=== PATIENT | female | born 1930 | race Caucasian/White ===

== ENCOUNTER 2017-02-14 13:17 | Outpatient (CLI) | payer MEDICARE ==
[2017-02-14 13:41] LABS: #Basophils 0.1 thou/uL (0.0-0.2); #Eosinphils 0.1 thou/uL (0.0-0.7); #Lymphocytes 1.2 thou/uL (1.20-3.40); #Monocytes 0.4 thou/uL (0.11-0.59); #Neutrophils 2.5 thou/uL (1.40-6.50); %Basophils 1.3 % (0.0-1.0); %Lymphocytes 27.5 % (21.0-51.0); %Monocytes 8.8 % (0.0-10.0); %Neutrophils 59.3 % (42.0-75.0); Hemoglobin 9.6 g/dL (12.0-16.0); Mean Corpuscular HGB CONC 30.2 g/dL (32.0-36.0); Mean Corpuscular Hemoglobin 26.7 pg (27.0-31.0); Mean Corpuscular Volume 88.2 fl (81.0-99.0); Mean Platelet Volume 9.1 fL (7.4-10.4); Platelet Count 130 thou/uL (130-400); Red Blood Cell (RBC) Count 3.58 mill/uL (4.20-5.40); White Blood Cell (WBC) Count 4.2 thou/uL (4.8-10.8)
[2017-02-14 13:56] LABS: ALT (SGPT) 16 U/L (0-55); AST (SGOT) 20 U/L (5-34); Albumin 3.9 g/dL (3.4-4.8); Alkaline Phosphatase 114 U/L (40-150); Anion Gap 13 mmol/L (10-20); BUN (Urea Nitrogen) 27 mg/dL (9.8-20.1); Bilirubin, Total 0.3 mg/dL (0.2-1.2); Calc. Creatinine Clearance 0 mL/min (70-130); Calcium 9.3 mg/dL (7.8-10.44); Carbon Dioxide 27 mmol/L (23-31); Chloride 106 mmol/L (98-107); Cholesterol 101 mg/dL (< 200 Desired); Estimated GFR-MDRD 70; Globulin 2.3 g/dL (2.4-3.5); Glucose 106 mg/dL (83-110); HDL Cholesterol 50 mg/dL (>60 Neg Risk); LDL Cholesterol, Calculated 42 mg/dL; Potassium 4.2 mmol/L (3.5-5.1); Protein, Total 6.2 g/dL (5.8-8.1); Sodium 142 mmol/L (136-145); Triglycerides 44 mg/dL (Less than 150)
== END 2017-02-14 13:18 | disposition home or self-care (01) ==
LOC: MADLABBHPM 13:17
PROVIDERS: ATTEND Internal Medicine Cardiovascular Disease
DX: I10 Essential (primary) hypertension (principal); M19.90 Unspecified osteoarthritis, unspecified site; E78.2 Mixed hyperlipidemia
CPT/HCPCS: 36415; 80053; 80061; 84443; 85025

== ENCOUNTER 2017-02-18 21:06 | Emergency (ER) | payer MEDICARE, OTHER ==
[~2017-02-18 21:06] MED LIST: Sodium Chloride 0.9% 1,000 ML BAG ONE; Sodium Chloride 0.9% 100 ML BAG ONE
[2017-02-18 21:48] LABS: ALT (SGPT) 24 U/L (0-55); AST (SGOT) 26 U/L (5-34); Albumin 3.9 g/dL (3.4-4.8); Alkaline Phosphatase 104 U/L (40-150); Anion Gap 16 mmol/L (10-20); BUN (Urea Nitrogen) 29 mg/dL (9.8-20.1); Bilirubin, Total 0.4 mg/dL (0.2-1.2); Calc. Creatinine Clearance 0 mL/min (70-130); Calcium 9.1 mg/dL (7.8-10.44); Carbon Dioxide 23 mmol/L (23-31); Chloride 104 mmol/L (98-107); Estimated GFR-MDRD 76; Globulin 2.5 g/dL (2.4-3.5); Glucose 118 mg/dL (83-110); Potassium 4.4 mmol/L (3.5-5.1); Protein, Total 6.4 g/dL (5.8-8.1); Sodium 139 mmol/L (136-145)
[2017-02-18 21:50] LABS: #Lymphocytes 0.5 thou/uL (1.20-3.40); #Monocytes 0.4 thou/uL (0.11-0.59); #Neutrophils 7.3 thou/uL (1.40-6.50); %Basophils 0.4 % (0.0-1.0); %Eosinophils 0.3 % (0.0-10.0); %Lymphocytes 5.8 % (21.0-51.0); %Neutrophils 88.5 % (42.0-75.0); Hemoglobin 9.4 g/dL (12.0-16.0); Mean Corpuscular HGB CONC 31.2 g/dL (32.0-36.0); Mean Corpuscular Hemoglobin 27.2 pg (27.0-31.0); Mean Corpuscular Volume 87.2 fl (81.0-99.0); Mean Platelet Volume 8.6 fL (7.4-10.4); PLT Morphology Comment Appears Decreased; Platelet Count 115 thou/uL (130-400); RBC Distribution Width 16.3 % (11.5-14.5); Red Blood Cell (RBC) Count 3.46 mill/uL (4.20-5.40); White Blood Cell (WBC) Count 8.3 thou/uL (4.8-10.8)
[2017-02-18 21:57] LABS: Bilirubin Negative (Negative); Blood, Urine Negative (Negative); Clarity Clear (Clear); Glucose, Urine (Dipstick) Negative (Negative); Leukocyte Negative (Negative); Nitrite Positive (Negative); Protein, Urine (Dipstick) Negative (Neg-Trace); Specific Gravity, Urine 1.015 (1.005-1.030); Urobilinogen 0.2 mg/dL (0.2-1.0); pH, Urine 5.5 (5.0-9.0)
[2017-02-18 21:59] LABS: Bacteria/HPF 4+ HPF (None Seen); RBC/HPF None Seen HPF (0-3); Squamous Epithelial 0-3 HPF (0-3)
[2017-02-18 22:00] LABS: Manual Diff?? NO
[2017-02-18] MEDS ORDERED: Nitroglycerin 0.4 MG TAB 1 EACH ONE (22:00)
[2017-02-18 22:13] LABS: CKMB 2.6 ng/mL (0-6.6)
[2017-02-18 22:14] LABS: Troponin I 0.019 ng/mL (< 0.028)
--- NOTE | 2017-02-18 22:14 | RAD ---
AP VIEW PELVIS 02/18/17 HISTORY: Right hip hardware placement. AP view pelvis is obtained. Comparison made to previous radiograph pelvis from 10/20/11. Previously noted proximal right femoral fracture has healed. No acute pelvic fractures or lesions se en. Bilateral superficial femoral artery calcification seen. IMPRESSION: No acute pelvic fractures or bony lesions seen. POS: [facility]
--- NOTE | 2017-02-18 22:18 | RAD ---
AP VIEW CHEST 02/18/17 HISTORY: 86-year-old with history of trauma. Comparison made to previous exam from 03/09/10. AP view chest demonstrates sternotomy wires seen. Multiple healed left sided posterior rib fractures seen. No evidence of acute intrathoracic abnormality seen. There does appear to be a small left suleiman ed pleural effusion. No evidence of pneumothorax seen. IMPRESSION: 1. Small left sided pleural effusion. 2. No evidence of acute intrathoracic pathology seen otherwise. POS: [facility]
--- NOTE | 2017-02-18 23:39 | CT ---
HISTORY: 86-year-old with history of fall yesterday having upper back pain. Axial images are obtained with coronal and sagittal reconstructions. The patient appears to have areas of sclerosis and old traumatic changes in the inferior end plate o f the T8 vertebral body. Old superior end plate T12 and L1 fracture is also seen. No obvious evidenc e of fracture seen in the posterior aspect of the visualized portions of the ribs. There is an old a rima of incomplete healing and sclerosis in the right L1 pedicle. There is atherosclerotic calcification of the aorta. There is marked calcification of the mitral ziggy ulus. There is also abnormal enlargement of the esophagus with an air fluid level within it concerning for a possible esophageal lesion. Correlate with GI consultation electively. IMPRESSION: Findings demonstrating older T8, T12 and L1 vertebral fractures. Upper thoracic spine demonstrates n o evidence of acute fractures. POS: [facility]
[2017-02-19] MEDS ORDERED: cefTRIAXone\\ROCEPHIN 1 GM VIAL ONE (00:14)
[2017-02-19] MEDS ORDERED: Pantoprazole 40 MG VIAL ONE (00:14)
== END 2017-02-19 00:42 | disposition short-term general hospital (02) ==
LOC: MADERS 21:06
DX: M54.6 Pain in thoracic spine (principal); D64.9 Anemia, unspecified; I44.7 Left bundle-branch block, unspecified; J90 Pleural effusion, not elsewhere classified; S50.01XA Contusion of right elbow, initial encounter; S51.011A Laceration without foreign body of right elbow, initial encounter; R07.9 Chest pain, unspecified; I25.2 Old myocardial infarction; Z79.82 Long term (current) use of aspirin; Z79.899 Other long term (current) drug therapy; W19.XXXA Unspecified fall, initial encounter
CPT/HCPCS: 51702; 71010; 72128; 72170; 80053; 81003; 81015; 82274; 82553; 84484; 85025; 85379; 87077; 87086; 87186; 93005; 96361; 96374; 96375; C9113; J0696; J2270; J7050

== ENCOUNTER 2017-03-09 12:42 | Inpatient (IN) | payer MEDICARE ==
[~2017-03-09 12:42] MED LIST changes: -Sodium Chloride 0.9% 100 ML BAG ONE
[2017-03-09 13:26] LABS: #Basophils 0.1 thou/uL (0.0-0.2); #Eosinphils 0.1 thou/uL (0.0-0.7); #Lymphocytes 0.9 thou/uL (1.20-3.40); #Monocytes 0.6 thou/uL (0.11-0.59); #Neutrophils 8.5 thou/uL (1.40-6.50); %Basophils 0.8 % (0.0-1.0); %Eosinophils 1.4 % (0.0-10.0); %Lymphocytes 8.4 % (21.0-51.0); %Monocytes 5.6 % (0.0-10.0); %Neutrophils 83.8 % (42.0-75.0); Hemoglobin 9.3 g/dL (12.0-16.0); Mean Corpuscular HGB CONC 30.7 g/dL (32.0-36.0); Mean Corpuscular Hemoglobin 26.8 pg (27.0-31.0); Mean Corpuscular Volume 87.2 fl (81.0-99.0); Mean Platelet Volume 7.1 fL (7.4-10.4); Platelet Count 227 thou/uL (130-400); Red Blood Cell (RBC) Count 3.46 mill/uL (4.20-5.40); White Blood Cell (WBC) Count 10.2 thou/uL (4.8-10.8)
[2017-03-09] MEDS ORDERED: Fentanyl 100 MCG/2 ML VIAL ONE (13:39)
[2017-03-09 13:44] LABS: ALT (SGPT) 12 U/L (0-55); AST (SGOT) 17 U/L (5-34); Alkaline Phosphatase 254 U/L (40-150); Anion Gap 16 mmol/L (10-20); BUN (Urea Nitrogen) 30 mg/dL (9.8-20.1); Bilirubin, Total 0.3 mg/dL (0.2-1.2); Calc. Creatinine Clearance 0 mL/min (70-130); Calcium 9.8 mg/dL (7.8-10.44); Carbon Dioxide 25 mmol/L (23-31); Chloride 103 mmol/L (98-107); Estimated GFR-MDRD 71; Globulin 2.7 g/dL (2.4-3.5); Glucose 113 mg/dL (83-110); Lipase 11 U/L (8-78); Potassium 4.4 mmol/L (3.5-5.1); Protein, Total 6.7 g/dL (5.8-8.1); Sodium 140 mmol/L (136-145)
[2017-03-09 13:53] LABS: Bilirubin Negative (Negative); Blood, Urine Negative (Negative); Clarity Clear (Clear); Glucose, Urine (Dipstick) Negative (Negative); Leukocyte Negative (Negative); Nitrite Negative (Negative); Protein, Urine (Dipstick) Negative (Neg-Trace); Urobilinogen 0.2 mg/dL (0.2-1.0)
[2017-03-09 14:14] LABS: CKMB 1.1 ng/mL (0-6.6); Troponin I 0.014 ng/mL (< 0.028)
--- NOTE | 2017-03-09 14:42 | RAD ---
AP CHEST: Indication: Pain with motion. FINDINGS: There is persistent pleural and parenchymal opacity, similar to comparison dated 02-21-17. Chronic erica ng change is similar. Post CABG change is similar. Osseous structures are unchanged. IMPRESSION: Stable examination of the chest. POS: [facility]
--- NOTE | 2017-03-09 14:43 | CT ---
NONCONTRAST CT OF THE CERVICAL SPINE: Indication: Right neck pain. Comparison: 02-19-17 IMPRESSION: 1. No acute fracture or subluxation is evident. 2. Severe multilevel spondylosis of the cervical spine with anterior translation of C3 on C4, C4 on C5, and C5 on C6 that appear stable to the prior exam. There is a prominent dilated esophagus which intraluminal debris. POS: [facility]
--- NOTE | 2017-03-09 14:59 | CT ---
CT OF THE CHEST WITHOUT CONTRAST CT OF THE ABDOMEN AND PELVIS WITHOUT CONTRAST: Indication: Left sided abdominal pain, constipation. Comparison: CT of the thorax dated 02-19-17. FINDINGS: CHEST: There is persistent small left pleural effusion and left basilar atelectasis. There is prominent dilatation of the esophagus with intraluminal debris that is stable. There is pos t-surgical change of prior CABG. There is prominent mitral annular calcifications. ABDOMEN/PELVIS: The gallbladder is contracted with intraluminal stones. Unopacified pancreas and spleen are unremarkable. Unopacified pancreas and adrenal glands are unremarkable. There is prominence of the renal pelves bi laterally, left greater than right, which may be related to extra renal pelves. There is renal vascu lar calcification of the superior pole of the right kidney. There is prominent vascular calcificatio n involving the abdominal and pelvic vasculature. There is gas within the bladder. There is a prominent amount of retained stool within the colon. The appendix is not definitely visualized. Small bowel is not obstructed. There is granuloma overlying the gluteal region. There is diffuse osteopenia. There is a === medullary needle transfixing the healed intertrochanter ic fracture. There is levoscoliosis of the lumbar spine. There are compression abnormalities involving T8, T12, and L1. There is diffuse osteopenia. No acute fracture is evident. IMPRESSION: 1. Persistent small left pleural effusion with basilar atelectasis. 2. Persistent dilated esophagus containing intraluminal debris. 3. Prominent amount of retained stool. 4. Prominence of the renal collecting systems without hydroureter may reflect changes of UPJ obstruc tion or prominent extrarenal pelves. 5. Stable chronic compression abnormality at T8, T12, and L1. POS: [facility]
[2017-03-09] MEDS ORDERED: Bisacodyl 10 MG SUPP PR PRN (16:07)
[2017-03-09] MEDS ORDERED: Acetaminophen/Codeine 30-300mg Tablet PO PRN (16:09)
[2017-03-09] MEDS ORDERED: Polyethylene Glycol 3350 17 GM Packet PO SCH (16:15)
[2017-03-09] MEDS ORDERED: Bisacodyl 10 MG SUPP PR SCH (16:15)
[2017-03-09] MEDS ORDERED: Acetaminophen 325 MG TAB PO PRN ×2 (16:54→16:55)
[2017-03-09] MEDS: Sodium Chloride 0.9% 1,000 ML IV SCH (16:59)
[2017-03-09] MEDS: Polyethylene Glycol 3350 17 GM Packet PO SCH ×3 (17:39→18:34)
[2017-03-09 17:50] VITALS: BMI 16.7
[2017-03-10] MEDS: Sodium Chloride 0.9% 1,000 ML IV SCH (05:21)
[2017-03-10] MEDS ORDERED: Sodium Chloride 0.9% 1,000 ML BAG ONE (07:30)
[2017-03-10] MEDS ORDERED: Ondansetron ODT 4 MG TAB PO PRN (07:58)
[2017-03-10 08:17] VITALS: BP 159/69; TEMP 99.7
[2017-03-10] MEDS ORDERED: Polyethylene Glycol 3350 17 GM Packet PO SCH ×2 (08:30→21:00)
--- NOTE | 2017-03-10 10:47 | SS ---
DATE OF ADMISSION: 03/09/2017 CHIEF COMPLAINT: Weak and unable to have a bowel movement and pain. PRESENT ILLNESS: The patient is an 86-year-old white female who has a history of hypertension, lanny nary artery disease who had a fall on 02/05/2017. The fall resulted in a fracture of the spinous pr ocess of C4, 5 and 6 and also some intralaminar fractures of C5 and C6. There was no displacement a nd there was no neurologic impairment. The patient was seen by a neurosurgeon who recommended manag ement in a cervical collar for which she was placed in a [employer] collar and this was to remain for 6-1 2 weeks. She also was found on her C-spine of the thoracic spine to have old fracture of T8, T12 an d L1. Her further evaluation of chest x-ray had shown a small left pleural effusion. CT scan of th e head showed no acute process. The patient was hospitalized at [facility] from 02/16/20 until 03/02/2017. She was seen in my office on 03/04/2017. At that time she was in her cervical collar. Her pain was being managed with tramadol and Tylenol and she seemed to be getting around r easonably well with the use of a walker. They had in-home help to assist her during the day and himanshu e in the evening. She lives there with her who helped, condition prevents him from being mu assistance. The patient came to the emergency room on the afternoon of 03/09/2017 because she was uncomfortable. She was having pain along the left lower lateral chest. She denied any shortness of breath. She also was having some cramping in the lower abdomen and had not had a bowel movement for a week. In the emergency room, she underwent a CT scan of the chest, abdomen and pelvic area which showed persi stent small left pleural effusion with basilar atelectasis, persistent dilated esophagus containing intraluminal debris and a prominent amount of retained stools in the rectum and throughout the colon . She had a little prominence of the renal collecting system without a hydroureter, represented a p ossible UPJ junction and she had the old compression fracture of T8, 12 and L1. Also, the urine fátima wed that she was ketotic, specific gravity was 1.020. There were negative leukocyte esterase and n egative nitrites, her sodium was 140, potassium 4.4, BUN 30, creatinine 0.77, glucose 117, alkaline phosphatase 254. CK 1.1, troponin I 0.14. Lipase 11. Albumin 4. Her H\T\H was 9.3 and 30.1, WBC count 10,200 with 84% segs, 8% lymphocytes, and platelet count of 227,000. The patient was admitted for some mild dehydration, anorexia and fecal impaction and left lower lateral chest wall pain. No fractures were noted on her CT scan of the chest. The patient was admitted to the hospital on the late afternoon of 03/09/2017 and was started on Cira Lax and received 17 grams in 8 ounces of water every 30 minutes x4. She passed multiple hard stools , but still required a digital disimpaction of multiple hard stools. On the morning of 03/10/2017 t he nurses noted that she still had some large amount of stools present in the colon. After her visi t, she vomited up some coffee ground material. I re-interviewed the patient and she said she interm ittently has some trouble with some vomiting. She has not had much of an appetite for some time. Historically she said she has had a stricture that required dilation by Dr. Moise, car sales representative . She is not sure when this was last done, she thinks it has been at least a couple of years ago. The patient denies any abdominal pain. She said she is just sore over the left lateral chest wall. She had a prescription for Tylenol #3, but has not been taking any of this. Apparently, she has be en taking just Tylenol and also may have been taking some tramadol. PAST HISTORY: Hospitalized from 02/15/2017 until 03/02/2017 for a fall resulting in fracture of the spinous process of C4, 5 and 6, and interim laminar fracture of C5 and C6 for which she is wearing a [employer] cervical collar. The patient has coronary artery disease for which she underwent a 3-vessel coronary artery bypass in 1993. She has hypertension, hyperlipidemia, osteoporosis with history of compression fractures of T8, T12 and L1. The patient has hyperlipidemia, osteoarthritis, history o f a fracture of the right hip for which she underwent open reduction and internal fixation. She als o has gastroesophageal reflux disease. She has undergone a DEMI and BSO, an appendectomy and bilater al rotator cuff repairs. The patient has a history of constipation for which she was started on Torey aLax 17 grams in 8 ounces of water on the office as 03/04/2017. PRESENT MEDICINES: Lisinopril 5 mg daily, aspirin 81 mg daily, Nexium 40 mg daily, metoprolol succi irineo 25 mg daily, Caltrate D 600 mg daily, aspirin 81 mg daily, atorvastatin 20 mg daily, Niaspan 50 0 mg at bedtime, Fosamax 70 mg daily, Alendronate 70 mg once a week, MiraLax 17 grams in 8 ounces of water daily, Tylenol 325 mg 2 every 4 hours as needed for pain, tramadol 50 mg 1 q.6 h. as needed f or pain. ALLERGIES: No known allergies. REVIEW OF SYSTEMS: The patient said she has been weak, although she is able to get around with a wh eelchair with wheels. She needs assistance with her ADLs and she is wearing her cervical collar desi ly. She has not had any fever. PULMONARY: No complaints. CARDIOVASCULAR: No complaints, although she is having pain along the left lower lateral chest wall that seems to be a little worse with deep inspiration and with movement. GASTROINTESTINAL: The patient has not had a bowel movement in a week. The patient said she has no appetite. The patient thinks she may have lost some weight. She intermittently has some vomiting, has had a history of esophageal stricture for which she has undergone dilation, but it has been prob ably at least 2 years ago that this was last done. : No complaints. HABITS: Alcohol none. Tobacco none. SOCIAL HISTORY: The patient is and lives at home with her who has multiple medical problems and is not able to serve as a caregiver. She has care in the home and a daughter who jase ts. CODE STATUS: DNR. PHYSICAL EXAMINATION: GENERAL: Shows an 86-year-old white female who has an asthenic build, looks frail, but not in any a cute distress. VITAL SIGNS: Shows a temperature of 99.7, pulse 102, respirations are 20, O2 saturation 98%, blood pressure 159/69. Her weight is 80 pounds. HEAD: Normocephalic and atraumatic. EYES: Pupils are equal, round, and reactive. Sclerae nonicteric. EARS: TMs are blocked by cerumen. NOSE: Normal. MOUTH AND THROAT: Normal. NECK: The patient has a [employer] cervical collar in place. LUNGS: Clear. There are decreased breath sounds at the left posterior base. HEART: Regular rate. ABDOMEN: Soft. There are some hard stools that can be felt on the left abdomen. The abdomen, thou gh, was nontender. EXTREMITIES: Lower extremities: No edema. NEUROLOGIC: The patient is alert and oriented x3. The patient has no focal weakness, but generaliz ed weakness. IMPRESSION: 1. Obstructive esophagus with retention of debris. A. Complicated by some vomiting coffee ground material on the morning of 03/10/2017. B. History of esophageal stricture requiring dilation, the last time, probably at least 2 years ago. 2. Dehydration. 3. Anorexia. 4. Obstipation with fecal impaction. A. Partially removed as of 03/10/2017. 5. Fall on 02/15/2017 resulting in a hospitalization at [facility] from 02/15/2017 until 03/02/2017 for a fracture of the spinous processes of C4, 5 and 6 and interlaminar fracture C5 and 6 for which she is wearing a [employer] cervical collar. 6. Coronary artery disease. A. Status post coronary artery bypass in 1993. B. Presently stable and asymptomatic. 7. Osteoporosis. A. Complicated by fracture of the right hip requiring open reduction internal fixation. B. History of compression fracture of T8, T12 and L1. 8. Severe spondylosis of the cervical spine with mild anterior translation C3 on C4, C4 on 5, and C 5 on 6 that is stable. 9. Prominence of the renal collecting system without hydroureter, possibly reflective of a ureterop elvic junction. 10. Persistent small left pleural effusion and possible basilar atelectasis. 11. Left lower lateral chest pain, suspect from a possible injury to the left chest, resulting in t he effusion and atelectasis. 12. Hypertension. 13. Hyperlipidemia. 14. Severe generalized weakness. PLAN: The patient initially had been admitted here at [facility] after her revie w and the episode of vomiting. I have reviewed all her x-rays and CT scan that shows the marked dil ation of the esophagus with retention of a large amount of debris throughout the esophagus. Apparen tly the patient has apparently an obstructed esophagitis with chronic retention and material in the esophagus that poses a significant aspiration risk. We will hold the patient n.p.o. We will arrang e for her to be transferred back to [facility] for further evaluation of the obstructed e sophagus with retention and also for further evaluation of the left pleural effusion and to ensure c ontrol of the severe constipation with fecal impaction. The patient does have a DNR code status.
== END 2017-03-10 09:59 | disposition short-term general hospital (02) | DRG 392 ==
LOC: MADERS 12:42 → MADMS 15:17
PROVIDERS: ADMIT Family Medicine; ATTEND Family Medicine
DX: K22.2 Esophageal obstruction (principal); J90 Pleural effusion, not elsewhere classified; E86.0 Dehydration; Z95.1 Presence of aortocoronary bypass graft; J98.11 Atelectasis; K56.41 Fecal impaction; S12.300D Unspecified displaced fracture of fourth cervical vertebra, subsequent encounter for fracture with routine healing; S12.400D Unspecified displaced fracture of fifth cervical vertebra, subsequent encounter for fracture with routine healing; S12.500D Unspecified displaced fracture of sixth cervical vertebra, subsequent encounter for fracture with routine healing; W19.XXXD Unspecified fall, subsequent encounter; I25.10 Atherosclerotic heart disease of native coronary artery without angina pectoris; M81.0 Age-related osteoporosis without current pathological fracture; M47.892 Other spondylosis, cervical region; E78.5 Hyperlipidemia, unspecified; I10 Essential (primary) hypertension; Z66 Do not resuscitate; R07.89 Other chest pain
CPT/HCPCS: 36415; 71010; 71250; 72125; 74177; 80053; 81003; 82553; 83605; 83690; 84484; 85025; 87040; 87086; 93005; A4353; J3010; J7050; Q0162

== ENCOUNTER 2017-03-25 02:11 | Emergency (ER) | payer MEDICARE ==
[2017-03-25 03:01] LABS: #Basophils 0.1 thou/uL (0.0-0.2); #Eosinphils 0.1 thou/uL (0.0-0.7); #Lymphocytes 0.9 thou/uL (1.20-3.40); #Monocytes 0.6 thou/uL (0.11-0.59); #Neutrophils 6.1 thou/uL (1.40-6.50); %Basophils 0.9 % (0.0-1.0); %Eosinophils 0.8 % (0.0-10.0); %Lymphocytes 11.1 % (21.0-51.0); %Monocytes 7.8 % (0.0-10.0); %Neutrophils 79.5 % (42.0-75.0); Hemoglobin 11.2 g/dL (12.0-16.0); Mean Corpuscular HGB CONC 31.7 g/dL (32.0-36.0); Mean Corpuscular Hemoglobin 28.3 pg (27.0-31.0); Mean Corpuscular Volume 89.5 fl (81.0-99.0); Mean Platelet Volume 7.6 fL (7.4-10.4); Platelet Count 208 thou/uL (130-400); RBC Distribution Width 17.5 % (11.5-14.5); Red Blood Cell (RBC) Count 3.94 mill/uL (4.20-5.40); White Blood Cell (WBC) Count 7.6 thou/uL (4.8-10.8)
[2017-03-25 03:18] LABS: ALT (SGPT) 14 U/L (0-55); AST (SGOT) 17 U/L (5-34); Albumin 3.8 g/dL (3.4-4.8); Alkaline Phosphatase 182 U/L (40-150); Anion Gap 18 mmol/L (10-20); BUN (Urea Nitrogen) 18 mg/dL (9.8-20.1); Bilirubin, Total 0.4 mg/dL (0.2-1.2); Calc. Creatinine Clearance 0 mL/min (70-130); Calcium 9.8 mg/dL (7.8-10.44); Carbon Dioxide 26 mmol/L (23-31); Chloride 100 mmol/L (98-107); Estimated GFR-MDRD 76; Globulin 2.4 g/dL (2.4-3.5); Glucose 104 mg/dL (83-110); Lipase 12 U/L (8-78); Potassium 4.5 mmol/L (3.5-5.1); Protein, Total 6.2 g/dL (5.8-8.1); Sodium 139 mmol/L (136-145)
--- NOTE | 2017-03-25 09:32 | CT ---
PRELIMINARY REPORT/[facility]/EMERGENCY AFTER HOURS PROCEDURE: EXAM: CT Chest Without Intravenous Contrast CLINICAL HISTORY: 86 years old, female; Pain; Chest pain; Other: Cough; Patient HX: Er cough TECHNIQUE: Axial computed tomography images of the chest without intravenous contrast. Coronal and sagittal reformatted images were created and reviewed. COMPARISON: No relevant prior studies available. FINDINGS: Lungs: Unremarkable. No mass. No consolidation. Pleural space: Small left pleural effusion. Heart: Aortic valve calcification. No significant pericardial effusion. Mediastinum: Substantial diffuse dilatation of the esophagus with food material, consistent with ach alasia. Bones/joints: Multilevel chronic compression fractures. No dislocation. Soft tissues: Unremarkable. Vasculature: Unremarkable. No thoracic aortic aneurysm. Lymph nodes: Unremarkable. No enlarged lymph nodes. Gallbladder and bile ducts: Cholelithiasis. No cholecystitis or biliary ductal dilatation. Kidneys and ureters: Incompletely visualized left sided hydronephrosis. Nonobstructive nephrolithiasis right kidney. IMPRESSION: 1. Substantial diffuse dilatation of the esophagus with food material, consistent with achalasia. 2. Small left pleural effusion. 3. Incompletely visualized left sided hydronephrosis. Consider CT abdomen/pelvis to evaluate for ure teral obstruction. 4. Aortic valve calcification may indicate aortic valve stenosis. RECOMMEND correlation with echocar diography. Thank you for allowing us to participate in the care of your patient. Dictated and Authenticated by: Robin Vera MD 03/25/2017 4:59 AM Central Time ([place] \T\ [place]) FINAL REPORT CT CHEST WITHOUT CONTRAST: FINDINGS: Lungs show no evidence of infiltrate. There is a small left effusion. The esophagus is severely dilated and filled with ingested material suggesting ackalasia. Evidence of left hydronephrosis which is incompletely evaluated. Radiopaque material in the dependent portion of the gallbladder consistent with small gallstones. These findings were all described on the preliminary report and I am in agreement with the prelimina ry report. POS: [facility]
--- NOTE | 2017-03-25 09:35 | CT ---
PRELIMINARY REPORT/[facility]/EMERGENCY AFTER HOURS PROCEDURE: EXAM: CT Cervical Spine Without Intravenous Contrast CLINICAL HISTORY: 86 years old, female; Pain; Neck pain; Patient HX: Pt complaining of cough and falls R/O neck pain. C-collar on TECHNIQUE: Axial computed tomography images of the cervical spine without intravenous contrast. This CT exam wa s performed using one or more of the following dose reduction techniques: automated exposure control , adjustment of the mA and/or kV according to patient size, and/or use of iterative reconstruction t echnique. Coronal reformatted images were created and reviewed. COMPARISON: No relevant prior studies available. FINDINGS: Vertebrae: No fracture. Degenerative change. Mild chronic compression deformity of the T2 vertebral body. Discs/spinal canal/neural foramina: See above. Soft tissues: Unremarkable. Esophagus: Esophagus is markedly distended with food material, consistent with achalasia. Lung apices: Unremarkable as visualized. IMPRESSION: 1. Esophagus is markedly distended with food material, consistent with achalasia. 2. No fracture. Thank you for allowing us to participate in the care of your patient. Dictated and Authenticated by: Robin Vera MD 03/25/2017 4:15 AM Central Time ([place] \T\ [place]) FINAL REPORT: CT CERVICAL SPINE: FINDINGS: There are degenerative changes of the cervical spine noted. Degenerative changes are most pronounced at C5-6 and C6-7 and C7-T1 where there is loss of disc height and prominent hypertrophic spurring p resent. Mild anterior subluxation at C4-5 is noted. Posterior spondolytic changes are seen at these levels which encroach into the spinal canal. Foraminal stenosis is seen bilaterally at C6-7. Left fo raminal stenosis at C5-6. The visualized esophagus is dilated and filled with ingested material as noted on the preliminary re port. No evidence of cervical spine fracture. IMPRESSION: I am in agreement with the preliminary report. POS: [facility]
== END 2017-03-25 06:00 | disposition home or self-care (01) ==
LOC: MADERS 02:11
DX: K22.2 Esophageal obstruction (principal); I25.2 Old myocardial infarction; I10 Essential (primary) hypertension; E78.5 Hyperlipidemia, unspecified; Z79.82 Long term (current) use of aspirin; Z79.899 Other long term (current) drug therapy
CPT/HCPCS: 36415; 71250; 72125; 80053; 83690; 85025

== ENCOUNTER 2017-11-06 11:14 | Emergency (ER) | payer MEDICARE ==
--- NOTE | 2017-11-06 12:23 | RAD ---
FOUR VIEWS OF THE RIGHT KNEE: 11/06/2017 HISTORY: Injury. Fall. Pain. FINDINGS: There is incompletely imaged postoperative hardware associated with the distal right femoral shaft. There are postoperative clips noted within the medial distal right thigh and medial to the right knee . Atherosclerotic calcifications are noted posterior to the distal femur and upper tibia. There is a nonspecific small-moderate sized knee joint effusion. There is patellofemoral joint space narrowing with posterior patellar osteophyte formation. There is no displaced fracture or evidence of dislocation appreciated. IMPRESSION: Osteopenia, degenerative change, and knee joint effusion. No discrete fracture or dislocation seen. If there is clinical concern for a radio-occult fracture, given trauma and knee joint effusion, CT ex amination may be beneficial. POS: [facility]
--- NOTE | 2017-11-06 12:26 | RAD ---
RIGHT HIP TWO VIEWS: HISTORY: An 87-year-old female with right hip pain following injury and fall. COMPARISON: 10/20/2010 FINDINGS: A right hip nail stabilizes the right femur with a healed intertrochanteric fracture. Minimal postop erative myositis ossificans is incidentally noted. Arterial vascular calcifications. Bony demineral ization without evidence for acute fracture. IMPRESSION: Hip nail stabilizing a healed intertrochanteric fracture. No acute fracture or dislocation. POS: [facility]
--- NOTE | 2017-11-06 13:38 | CT ---
CT OF RIGHT KNEE WITHOUT CONTRAST: Date: 11/06/17 INDICATION: Right knee pain after fall. FINDINGS: There is suspicion for a nondepressed, nondisplaced lateral tibial plateau fracture best seen on imag e 15 of the sagittal series at image 28 of the coronal series. Small lipohemarthrosis is present with in the knee joint. There is diffuse osteopenia. There is partial visualization of the distal aspect o f intramedullary yolette within the distal femur with associated interlocking screw. There are prominent vascular calcifications within the adjacent soft tissues. There is prominent muscular atrophy seen in volving region of anterior tibialis musculature of the proximal foreleg. There are surgical clips wit hin the soft tissues of the posterior knee joint. IMPRESSION: 1. Nondisplaced, nondepressed lateral tibial plateau fracture. 2. Mild osteoarthrosis of the right knee. 3. Small lipohemarthrosis. POS: [facility]
[2017-11-06] MEDS ORDERED: traMADol HCl 50 MG TAB ONE (15:35)
== END 2017-11-06 15:37 | disposition short-term general hospital (02) ==
LOC: MADERS 11:14
DX: S82.144A Nondisplaced bicondylar fracture of right tibia, initial encounter for closed fracture (principal); E78.5 Hyperlipidemia, unspecified; I25.2 Old myocardial infarction; I10 Essential (primary) hypertension; Z79.82 Long term (current) use of aspirin; Z79.899 Other long term (current) drug therapy; W06.XXXA Fall from bed, initial encounter

== ENCOUNTER 2017-11-06 23:28 | Inpatient (IN) | payer MEDICARE ==
[2017-11-07] MEDS ORDERED: Acetaminophen 325 MG TAB PO PRN (00:38)
[2017-11-07 01:52] VITALS: BMI 19.3
[2017-11-07] MEDS: Atorvastatin Calcium 10 MG TAB PO SCH (08:09)
[2017-11-07] MEDS: Niacin SR 500 MG CAP PO SCH (08:09)
[2017-11-07] MEDS: Calcium Carbonate + Vit D 1 TAB PO SCH (08:09)
[2017-11-07] MEDS ORDERED: FLU VACC TS2017-18 (>65YR) 0.5 ML SYRINGE IM ONE (09:00)
--- NOTE | 2017-11-07 12:11 | HP ---
CHIEF COMPLAINT: Fall and unable to walk. PRESENT ILLNESS: The patient is an 87-year-old white female who has a history of hypertension, coron michelle artery disease, frailty and severe gastroesophageal reflux with a history of previous distal esop hageal stricture. The patient resides at her home with her , but is very weak and requires as sistance with her ADLs. On the day of admission, the patient was getting up off of the commode and f ell hitting her right knee. She had immediate pain in the knee and could not get up. The patient wa s brought to the emergency room where she was evaluated. X-ray of the right hip and knee were perfor med. No obvious fracture was seen. CT scan of the right lower extremity was performed due to the pe rsistence of the pain and CT scan showed evidence of a nondisplaced, not depressed lateral tibial kerline teau fracture. There was also evidence of lipohemarthrosis in that right knee joint. ER doctor srinivas erred with me and the patient was left, not only with the fracture, but could not bear weight and cou ld not now walk and level of care exceeded what the family could do at home, recommended that she be referred to [facility] where orthopedic surgeon could evaluate and make a decision on how be st this fracture should be managed and then the patient could be brought back here for further care i f this was not operative. The patient was transferred to [facility], Dr. Wilder mcgill saw her and reviewed the films and then consulted with Dr. Moises Betts, Orthopedic surgeon . Dr. Betts recommended that since the patient had a nondisplaced, nondepressed lateral tibial kerline teau fracture that she be managed with a knee immobilizer and nonweightbearing for 3 weeks and then h e would recheck her. Dr. Navas called me with this information and since patient's condition was be yond what could be cared for at home she was transferred back [facility] care of not only the fracture, but her severe generalized weakness and for further evalu ation of the falls. The patient arrived at the hospital late on the evening of 11/06/2017 with a knee immobilizer on. The patient was seen early on the morning of 11/07/2017, she was able to tell me that she had fallen getting up off of the commode. She said she is weak and often can walk very short distance with the use of a walker. The patient said her knee feels better in the knee immobilizer. She has not yet be en up. PAST HISTORY: The patient has coronary artery disease. She has undergone coronary artery bypass in 1993. She has had appendectomy, a fracture of the right hip for which she has undergone open reducti on internal fixation with an intramedullary yolette and nail into the trochanteric fracture. She has had bilateral rotator cuff repair. She has had a DEMI and BSO. Patient has a history of severe gastroes ophageal reflux disease complicated by distal esophageal stricture that has resulted in dilation of t he esophagus and total impaction. The patient required EGD and balloon dilation of the distal esopha geal stricture on 03/11/2017. She was rehospitalized on 03/26/2017 for repeat EGD for a dilated esop hagus that was totally impacted with food. After she had been completely evacuated of all of the imp action in the esophagus she was examined, no evidence of any stricture was seen. She has been manage d by just a liquid diet and pureed diet. Last EGD in 08/2017 showed an open esophagus. No evidence of achalasia, no evidence on biopsy of achalasia. The patient since then on soft foods and also bekah ged with pantoprazole. The patient has had another fall in 02/19/2017 that resulted in a fracture of the spinous processes of C4, C5 and C6 and an intralaminar fracture of C5-6 without any type of neur ologic impairment. She was managed in a cervical collar rigid for an 8 week period and followed up w ith the neurosurgeon and has since healed. The patient also has a history of constipation, hyperlipi demia, generalized osteoarthritis. Osteoporosis. Overactive bladder. PRESENT MEDICINES: Acetaminophen 325 mg 2 every 4 hours as needed for pain, alendronate 70 mg once a week, aspirin 81 mg daily, atorvastatin 20 mg daily, metoprolol succinate extended release 25 mg desi ly, Caltrate D 600 mg 1 daily, Nexium 40 mg daily, Niacin 500 mg daily. ALLERGIES: No known allergies. REVIEW OF SYSTEMS: The patient does not think she has had any recent weight loss or gain. She has h ad no fever. HEAD AND NECK: The patient said she did not hit her head when she fell. There was no loss of consci ousness. EYES, EARS, NOSE AND THROAT: No complaints. PULMONARY: No shortness of breath. CARDIOVASCULAR: No complaints. GASTROINTESTINAL: The patient said she has been tolerating just a soft diet without any problems. : No complaints. ADLs: The patient requires assistance with her ADLs, can ambulate with the use of a walker very shor t distance. HABITS: Alcohol none. Tobacco none. SOCIAL HISTORY: The patient is and lives at home with her . Her daughter, meredith Rae ists her with her instrumental ADLs. CODE STATUS: Full code. PHYSICAL EXAMINATION: GENERAL: Shows an 87-year-old white female who is lying in bed. She is pale, very weak, but awake a nd appears comfortable. She is wearing a knee immobilizer on her right leg. VITAL SIGNS: Shows temperature 98.5, pulse 88, respirations 20, O2 sat 96% on room air, blood pressu re 146/69. Her weight is 98 pounds, height 60 inches. HEAD: Normocephalic and atraumatic. EYES: Pupils were equal, round, and reactive. Sclerae are nonicteric. NOSE: Normal. MOUTH AND THROAT: Normal. NECK: Carotids are equal and strong, no bruits. Thyroid not enlarged. LUNGS: Clear. HEART: Regular rate. No murmurs. ABDOMEN: Soft, no organomegaly, nor areas of tenderness. EXTREMITIES: There is no edema. The knee immobilizer on the right knee was loosened and opened to r emove the knee, the right knee was examined. There is a small effusion present. There is some bruis ing along the anterior lateral aspect of the knee and the lateral anterior aspect and lateral aspect of the knee is tender. The knee immobilizer was replaced. NEUROLOGIC: The patient is alert and recognizes me and knows herself. She was a little confused ove r the situation, but does know that she had fallen. IMPRESSION: 1. Closed, nondisplaced, nondepressed lateral tibial plateau fracture of the right leg. A. Secondary to a fall on 11/06/2017. B. Leaving the patient nonambulatory. C. Unable to take care of herself and beyond the capability of the family to manage her. 2. Severe generalized weakness. A. Requires assistance with all her ADLs. B. Now patient is nonweightbearing on the right leg due to fracture of the tibial plateau. 3. Coronary artery disease. A. Status post coronary artery bypass in 1993. B. Asymptomatic. 4. Hypertension. 5. Hyperlipidemia. 6. Severe gastroesophageal reflux. Complicated by distal esophageal stricture. A. Status post food bolus impaction requiring EGD, removal of impaction and dilation on 03/10/2017. B. Status post esophagogastroduodenoscopy for a total impacted dilated esophagus and history of esoph ageal stricture, but none seen on this evaluation. C. Last EGD showed no impaction and esophagus open. D. Tolerating a soft diet. 7. Frailty. 8. Osteoporosis. 9. Overactive bladder. PLAN: The patient has been admitted to the hospital for control of her pain and mobilization of the knee. The patient will need to remain nonweightbearing for 3 weeks and with a knee immobilizer. Arr angements will be made after 3 weeks for her to see orthopedic surgeon, Dr. Moises Betts. Physic al therapy will work with her for general strengthening and gait. See orders.
[2017-11-07] MEDS: Acetaminophen 325 MG TAB PO PRN ×2 (16:26→20:39)
[2017-11-07] MEDS: TROSPIUM 20 MG TABLET PO SCH (20:39)
[2017-11-07] MEDS ORDERED: Atorvastatin Calcium 10 MG TAB PO SCH (21:00)
[2017-11-08 05:51] LABS: Anion Gap 12 mmol/L (10-20); BUN (Urea Nitrogen) 36 mg/dL (9.8-20.1); Calc. Creatinine Clearance 36 mL/min (70-130); Calcium 9.2 mg/dL (7.8-10.44); Carbon Dioxide 28 mmol/L (23-31); Cardiac Risk 2.3 (Less than 4.5); Chloride 103 mmol/L (98-107); Cholesterol 82 mg/dl (< 200 Desired); Estimated GFR-MDRD 68; Glucose 117 mg/dL (83-110); HDL Cholesterol 35 mg/dL (>60 Neg Risk); LDL Cholesterol, Calculated 37 mg/dL; Potassium 4.1 mmol/L (3.5-5.1); Sodium 139 mmol/L (136-145); Triglycerides 50 mg/dL (Less than 150)
[2017-11-08 06:05] LABS: Band 6 % (5-11); Eosinophils 3 % (0-10); Hemoglobin 10.6 g/dL (12.0-16.0); Lymphocytes 14 % (21-51); MDiff Complete? YES; Mean Corpuscular Hemoglobin 30.3 pg (27.0-31.0); Mean Corpuscular Volume 91.9 fl (81.0-99.0); Mean Platelet Volume 8.3 fL (7.4-10.4); Monocytes 8 % (0-10); Neutrophil 69 % (42-75); PLT Morphology Comment Appears Decreased; Platelet Count 113 thou/uL (130-400); RBC Distribution Width 13.9 % (11.5-14.5); Red Blood Cell (RBC) Count 3.51 mill/uL (4.20-5.40); White Blood Cell (WBC) Count 8.1 thou/uL (4.8-10.8)
[2017-11-08] MEDS: Calcium Carbonate + Vit D 1 TAB PO SCH (08:12)
[2017-11-08] MEDS: Atorvastatin Calcium 10 MG TAB PO SCH (08:13)
[2017-11-08] MEDS: Niacin SR 500 MG CAP PO SCH (08:14)
[2017-11-08] MEDS ORDERED: Aspirin 81 mg Enteric Coated Tablet PO SCH (09:00)
[2017-11-08] MEDS ORDERED: Cyanocobalamin (Vitamin B-12) 1,000 MCG TAB PO SCH (09:00)
[2017-11-08] MEDS ORDERED: Enoxaparin Sodium 30 MG/0.3 ML SYRINGE SC SCH (09:00)
[2017-11-08] MEDS ORDERED: Calcium Carbonate + Vit D 1 TAB PO SCH (09:00)
[2017-11-08] MEDS: TROSPIUM 20 MG TABLET PO SCH (09:54)
[2017-11-08 10:27] VITALS: BP 127/61; TEMP 97.1
--- NOTE | 2017-11-08 11:14 | PRG ---
DATE OF SERVICE: 11/08/2017 SUBJECTIVE: The patient feels better this morning. OBJECTIVE: GENERAL: The patient is sitting up in bed. She is alert, talkative, and appears comfortable. She h as the knee immobilizer on the right leg. There is no edema in the right lower leg. LUNGS: Clear. HEART: Regular rate. VITAL SIGNS: Show a temperature 97.7, pulse 77, respirations 60, O2 sat 94% on room air, blood pressu re 134/63. ASSESSMENT: 1. Closed, nondisplaced, nondepressed lateral tibial plateau fracture of the right leg. A. Secondary to a fall on 11/06/2017. B. Leaving the patient nonambulatory. C. Unable to take care of herself and beyond the capability of the family to manage her. D. Very comfortable as of 11/08/2017. 2. Severe generalized weakness. A. Requires assistance with all her ADLs. B. Now patient is nonweightbearing on the right leg due to fracture of the tibial plateau. 3. Coronary artery disease. A. Status post coronary artery bypass in 1993. B. Asymptomatic. 4. Hypertension. 5. Hyperlipidemia. 6. Severe gastroesophageal reflux. Complicated by distal esophageal stricture. A. Status post food bolus impaction requiring EGD, removal of impaction and dilation on 03/10/20 17. B. Status post esophagogastroduodenoscopy for a total impacted dilated esophagus and history of esophageal stricture, but none seen on this evaluation. C. Last EGD showed no impaction and esophagus open. D. Tolerating a soft diet. 7. Frailty. 8. Osteoporosis. 9. Overactive bladder. PLAN: Continue present care. Continue the knee immobilizer placed patient on DVT prophylaxis with L ovenox 30 mg subcu daily. We will move patient to extended care for continuation of her management a nd physical therapy. Her insurance provider [employer] has improved this transfer as of today.
== END 2017-11-08 11:08 | disposition swing bed (61) | DRG 563 ==
LOC: MADMS 23:28
PROVIDERS: ADMIT Family Medicine; ATTEND Family Medicine
DX: S82.144A Nondisplaced bicondylar fracture of right tibia, initial encounter for closed fracture (principal); R54 Age-related physical debility; I10 Essential (primary) hypertension; I25.10 Atherosclerotic heart disease of native coronary artery without angina pectoris; K21.9 Gastro-esophageal reflux disease without esophagitis; M81.0 Age-related osteoporosis without current pathological fracture; E78.5 Hyperlipidemia, unspecified; N32.81 Overactive bladder; W19.XXXA Unspecified fall, initial encounter
CPT/HCPCS: 36415; 80048; 80061; 85025; J1650

== ENCOUNTER 2017-11-08 03:27 | Inpatient (IN) | payer MEDICARE ==
[2017-11-08] MEDS: Acetaminophen 325 MG TAB PO PRN (19:37)
[2017-11-08] MEDS: Atorvastatin Calcium 10 MG TAB PO SCH (19:37)
[2017-11-08] MEDS: Lantiseptic Ointment 130 GM JAR TOP SCH (21:47)
[2017-11-09] MEDS: Ondansetron ODT 4 MG TAB PO PRN (08:47)
[2017-11-09] MEDS: TROSPIUM 20 MG TABLET PO SCH ×2 (09:36→21:03)
[2017-11-09] MEDS: Enoxaparin Sodium 30 MG/0.3 ML SYRINGE SC SCH (09:36)
[2017-11-09] MEDS: Aspirin 81 mg Enteric Coated Tablet PO SCH (09:36)
[2017-11-09] MEDS: Niacin SR 500 MG CAP PO SCH (09:36)
[2017-11-09] MEDS: Calcium Carbonate + Vit D 1 TAB PO SCH (09:59)
[2017-11-09] MEDS: Cyanocobalamin (Vitamin B-12) 1,000 MCG TAB PO SCH (09:59)
[2017-11-09] MEDS: Lantiseptic Ointment 130 GM JAR TOP SCH ×2 (10:00→21:03)
[2017-11-09] MEDS: Atorvastatin Calcium 10 MG TAB PO SCH (21:03)
[2017-11-09] MEDS: Acetaminophen 325 MG TAB PO PRN (21:04)
[2017-11-10] MEDS: Acetaminophen 325 MG TAB PO PRN ×2 (00:56→05:31)
[2017-11-10] MEDS: Alendronate Sodium 70 mg Tablet PO SCH (05:32)
[2017-11-10] MEDS: Niacin SR 500 MG CAP PO SCH (09:01)
[2017-11-10] MEDS: Cyanocobalamin (Vitamin B-12) 1,000 MCG TAB PO SCH (09:02)
[2017-11-10] MEDS: Aspirin 81 mg Enteric Coated Tablet PO SCH (09:02)
[2017-11-10] MEDS: TROSPIUM 20 MG TABLET PO SCH ×2 (09:02→20:41)
[2017-11-10] MEDS: Calcium Carbonate + Vit D 1 TAB PO SCH (09:02)
[2017-11-10] MEDS: Enoxaparin Sodium 30 MG/0.3 ML SYRINGE SC SCH (09:03)
[2017-11-10] MEDS: Lantiseptic Ointment 130 GM JAR TOP SCH ×2 (11:00→20:42)
--- NOTE | 2017-11-10 11:52 | PRG ---
DATE OF SERVICE: 11/10/2017 SUBJECTIVE: The patient said she is feeling good this morning other than having some pain in that ri ght knee. Patient wants to get up. The patient yesterday had some nausea, vomiting, diarrhea. She was placed on a clear liquid diet and was given Zofran, oral disintegrating tablets as needed. She h as not had any other vomiting. Diarrhea has ceased. OBJECTIVE: GENERAL: The patient is lying in bed, looks comfortable and in no distress. VITAL SIGNS: Her temperature 98, pulse 92, respirations 16, O2 sat 92% on room air, and blood pressu re 136/60. LUNGS: Clear. HEART: Regular rate. MUSCULOSKELETAL: Her right knee is in a knee immobilizer. In the lower leg, there is no swelling. ASSESSMENT: 1. Closed, nondisplaced, nondepressed lateral tibial plateau fracture of the right leg. A. Secondary to a fall on 11/06/2017. B. Leaving the patient nonambulatory. C. Unable to take care of herself and beyond the capability of the family to manage her. D. Please put stable as of 11/10/2017. 2. Severe generalized weakness. A. Requires assistance with all her ADLs. B. Now patient is nonweightbearing on the right leg due to fracture of the tibial plateau. C. Physical therapy working with patient. She is nonweightbearing on the right leg as of 2016. 3. Coronary artery disease. A. Status post coronary artery bypass in 1993. B. Asymptomatic. 4. Hypertension. 5. Hyperlipidemia. 6. Severe gastroesophageal reflux. Complicated by distal esophageal stricture. A. Status post food bolus impaction requiring EGD, removal of impaction and dilation on 03/10/20 17. B. Status post esophagogastroduodenoscopy for a total impacted dilated esophagus and history of esophageal stricture, but none seen on this evaluation. C. Last EGD showed no impaction and esophagus open. D. Tolerating a soft diet. 7. Frailty. 8. Osteoporosis. 9. Episode of nausea, vomiting, and diarrhea on 11/10/2017. A. Resolved as of 11/10/2017. PLAN: Continue physical therapy. Advance patient's diet back to a mechanical soft diet. Up in a ch air as tolerated.
[2017-11-10] MEDS: Atorvastatin Calcium 10 MG TAB PO SCH (20:41)
[2017-11-11] MEDS: Ondansetron ODT 4 MG TAB PO PRN (08:50)
[2017-11-11] MEDS: TROSPIUM 20 MG TABLET PO SCH ×2 (08:52→21:27)
[2017-11-11] MEDS: Cyanocobalamin (Vitamin B-12) 1,000 MCG TAB PO SCH (08:52)
[2017-11-11] MEDS: Niacin SR 500 MG CAP PO SCH (08:52)
[2017-11-11] MEDS: Enoxaparin Sodium 30 MG/0.3 ML SYRINGE SC SCH (08:52)
[2017-11-11] MEDS: Calcium Carbonate + Vit D 1 TAB PO SCH (08:53)
[2017-11-11] MEDS: Aspirin 81 mg Enteric Coated Tablet PO SCH (08:53)
[2017-11-11] MEDS: Lantiseptic Ointment 130 GM JAR TOP SCH ×2 (10:39→21:28)
[2017-11-11] MEDS: Atorvastatin Calcium 10 MG TAB PO SCH (21:27)
[2017-11-12] MEDS: Calcium Carbonate + Vit D 1 TAB PO SCH (09:11)
[2017-11-12] MEDS: Aspirin 81 mg Enteric Coated Tablet PO SCH (09:11)
[2017-11-12] MEDS: Cyanocobalamin (Vitamin B-12) 1,000 MCG TAB PO SCH (09:12)
[2017-11-12] MEDS: Niacin SR 500 MG CAP PO SCH (09:12)
[2017-11-12] MEDS: Enoxaparin Sodium 30 MG/0.3 ML SYRINGE SC SCH (09:12)
[2017-11-12] MEDS: Lantiseptic Ointment 130 GM JAR TOP SCH ×2 (09:12→20:25)
[2017-11-12] MEDS: TROSPIUM 20 MG TABLET PO SCH ×2 (09:13→20:25)
--- NOTE | 2017-11-12 11:12 | PRG ---
DATE OF SERVICE: 11/12/2017 SUBJECTIVE: The patient thinks she is doing better. She says her leg is feeling better. She is wor ludin with physical therapy. She is not bearing any weight on that right leg. The patient is requiri ng maximum assistance with transfers and therapy is working with strengthening exercise. She is not able to ambulate with the 1 leg as of yet. OBJECTIVE: The patient is lying in bed, looks comfortable and appears in no distress. Her vital sig ns show a temperature of 98.2, pulse 83, respirations 20, O2 sat 95% on room air, blood pressure 161/ 69. Lungs are clear. Heart, regular rate. Right leg, the knees is still in a knee immobilizer, the lower leg has no edema. ASSESSMENT: 1. Closed, nondisplaced, nondepressed lateral tibial plateau fracture of the right leg. A. Secondary to a fall on 11/06/2017. B. Leaving the patient nonambulatory. C. Unable to take care of herself and beyond the capability of the family to manage her. D. Stable, presently nonweightbearing on the right leg and not able to ambulate as of 11/12/2017 . 2. Severe generalized weakness. A. Requires assistance with all her ADLs. B. Now patient is nonweightbearing on the right leg due to fracture of the tibial plateau. C. Physical therapy continues to work with strengthening the patient, she is still maximum jase t with any transfers and is nonambulatory at present as of 11/12/2017. 3. Coronary artery disease. A. Status post coronary artery bypass in 1993. B. Asymptomatic. 4. Hypertension. 5. Hyperlipidemia. 6. Severe gastroesophageal reflux. Complicated by distal esophageal stricture. A. Status post food bolus impaction requiring EGD, removal of impaction and dilation on 03/10/20 17. B. Status post esophagogastroduodenoscopy for a total impacted dilated esophagus and history of esophageal stricture, but none seen on this evaluation. C. Last EGD showed no impaction and esophagus open. D. Tolerating a soft diet. 7. Frailty. 8. Osteoporosis. 9. Episode of nausea, vomiting, and diarrhea on 11/10/2017. A. Resolved as of 11/10/2017. PLAN: Continue physical therapy. Continue the knee immobilizer. The patient had brought some Fanny n 5 mg that she was taking in a liquid form mixed with juice before her meals at home. She has not r eceived this up here, really not sure this offered any help for her at home and has not seen any diff erence. Since the patient saw no particular difference on or off of the medicine, we will leave this off for now.
[2017-11-12] MEDS: Atorvastatin Calcium 10 MG TAB PO SCH (20:25)
[2017-11-13] MEDS: Niacin SR 500 MG CAP PO SCH (09:16)
[2017-11-13] MEDS: Calcium Carbonate + Vit D 1 TAB PO SCH (09:17)
[2017-11-13] MEDS: Cyanocobalamin (Vitamin B-12) 1,000 MCG TAB PO SCH (09:17)
[2017-11-13] MEDS: Enoxaparin Sodium 30 MG/0.3 ML SYRINGE SC SCH (09:17)
[2017-11-13] MEDS: TROSPIUM 20 MG TABLET PO SCH ×2 (09:17→20:33)
[2017-11-13] MEDS: Lantiseptic Ointment 130 GM JAR TOP SCH ×2 (09:17→20:35)
[2017-11-13] MEDS: Aspirin 81 mg Enteric Coated Tablet PO SCH (09:17)
[2017-11-13] MEDS: Atorvastatin Calcium 10 MG TAB PO SCH (20:33)
[2017-11-14] MEDS: Aspirin 81 mg Enteric Coated Tablet PO SCH (08:05)
[2017-11-14] MEDS: Calcium Carbonate + Vit D 1 TAB PO SCH (08:06)
[2017-11-14] MEDS: TROSPIUM 20 MG TABLET PO SCH ×2 (08:07→20:00)
[2017-11-14] MEDS: Enoxaparin Sodium 30 MG/0.3 ML SYRINGE SC SCH (08:07)
[2017-11-14] MEDS: Cyanocobalamin (Vitamin B-12) 1,000 MCG TAB PO SCH (08:07)
[2017-11-14] MEDS: Niacin SR 500 MG CAP PO SCH (08:07)
--- NOTE | 2017-11-14 12:27 | PRG ---
DATE OF SERVICE: 11/14/2017 SUBJECTIVE: The patient states she is doing better. She sat up yesterday. She has not had trouble with any nausea or vomiting. Her pain seems to be well managed. Patient is sitting up in a chair, is taking moderate assist to maximum assist going from a bed to a chair. She can stand on the left leg and pivot, and she does seem to be more comfortable. She still is non-weightbearing on the right le g. OBJECTIVE: GENERAL: The patient is lying in bed with the head elevated, just eating her breakfast. She is aler t and looks very comfortable. VITAL SIGNS: Her temp is 98.3, pulse 94, respirations 18, O2 sat 96% on room air, blood pressure 176 /72. Earlier pressure was 132/58. LUNGS: Clear. HEART: Regular rate. EXTREMITIES: No edema. Right knee, the patient is wearing her knee immobilizer. ASSESSMENT: 1. Closed, nondisplaced, nondepressed lateral tibial plateau fracture of the right leg. A. Secondary to a fall on 11/06/2017. B. Leaving the patient nonambulatory. C. Unable to take care of herself and beyond the capability of the family to manage her. D. Stable. Remains non-weightbearing on the right leg as of 11/14/2017. 2. Severe generalized weakness. A. Requires assistance with all her ADLs. B. Now patient is nonweightbearing on the right leg due to fracture of the tibial plateau. C. Patient able to sit up in a chair and is able to stand and pivot with the left leg, but is re quiring moderate to maximum assistance with transference as of 11/14/2017. 3. Coronary artery disease. A. Status post coronary artery bypass in 1993. B. Asymptomatic. 4. Hypertension. 5. Hyperlipidemia. 6. Severe gastroesophageal reflux. Complicated by distal esophageal stricture. A. Status post food bolus impaction requiring EGD, removal of impaction and dilation on 03/10/20 17. B. Status post esophagogastroduodenoscopy for a total impacted dilated esophagus and history of esophageal stricture, but none seen on this evaluation. C. Last EGD showed no impaction and esophagus open. D. Tolerating a soft diet. 7. Frailty. 8. Osteoporosis. 9. Episode of nausea, vomiting, and diarrhea on 11/10/2017. A. Resolved as of 11/10/2017. PLAN: Continue present care. The patient was complaining about the number of tablets she takes each morning. She did not think she was taking this many at home. I have reviewed her medication and ishaan zamorano like there is no need for her to be on the B12 nor the niacin, both of these were stopped.
[2017-11-14] MEDS: Lantiseptic Ointment 130 GM JAR TOP SCH (20:00)
[2017-11-14] MEDS: Atorvastatin Calcium 10 MG TAB PO SCH (20:01)
[2017-11-15] MEDS: Acetaminophen 325 MG TAB PO PRN (03:51)
[2017-11-15] MEDS: Lantiseptic Ointment 130 GM JAR TOP SCH ×2 (08:28→19:59)
[2017-11-15] MEDS: Enoxaparin Sodium 30 MG/0.3 ML SYRINGE SC SCH (08:29)
[2017-11-15] MEDS: TROSPIUM 20 MG TABLET PO SCH ×2 (08:29→19:59)
[2017-11-15] MEDS: Calcium Carbonate + Vit D 1 TAB PO SCH (08:29)
[2017-11-15] MEDS: Aspirin 81 mg Enteric Coated Tablet PO SCH (08:29)
[2017-11-15] MEDS: Atorvastatin Calcium 10 MG TAB PO SCH (19:59)
[2017-11-16] MEDS: Acetaminophen 325 MG TAB PO PRN ×3 (02:51→20:38)
[2017-11-16] MEDS: Enoxaparin Sodium 30 MG/0.3 ML SYRINGE SC SCH (09:03)
[2017-11-16] MEDS: Calcium Carbonate + Vit D 1 TAB PO SCH (09:05)
[2017-11-16] MEDS: TROSPIUM 20 MG TABLET PO SCH ×2 (09:05→20:38)
[2017-11-16] MEDS: Aspirin 81 mg Enteric Coated Tablet PO SCH (09:05)
[2017-11-16] MEDS: Lantiseptic Ointment 130 GM JAR TOP SCH ×2 (09:06→20:40)
--- NOTE | 2017-11-16 19:15 | PRG ---
DATE OF SERVICE: 11/16/2017 SUBJECTIVE: The patient said she is doing better. The knee was hurting some last night, but she use d an ice pack on it and this did help. She is sitting up more in a chair, but she has had no weightb earing with that right leg would limit her ability to get around. OBJECTIVE: GENERAL: The patient is lying in bed. She looks very comfortable and in no distress. VITAL SIGNS: Her temperature is 97.9, pulse 84, respirations 18, O2 sat 96% on room air, blood press ure 136/60. LUNGS: Clear. HEART: Regular rate. EXTREMITIES: Right knee, the patient is wearing her knee immobilizer. Patient has no swelling in th e lower leg. ASSESSMENT: 1. Closed, nondisplaced, nondepressed lateral tibial plateau fracture of the right leg. A. Secondary to a fall on 11/06/2017. B. Leaving the patient nonambulatory. C. Unable to take care of herself and beyond the capability of the family to manage her. D. Stable. Remains non-weightbearing on the right leg as of 11/16/2017. 2. Severe generalized weakness. A. Requires assistance with all her ADLs. B. Now patient is nonweightbearing on the right leg due to fracture of the tibial plateau. C. Patient able to sit up in a chair and is able to stand and pivot with the left leg, but is re quiring moderate to maximum assistance with transference as of 11/16/2017. 3. Coronary artery disease. A. Status post coronary artery bypass in 1993. B. Asymptomatic. 4. Hypertension. 5. Hyperlipidemia. 6. Severe gastroesophageal reflux. Complicated by distal esophageal stricture. A. Status post food bolus impaction requiring EGD, removal of impaction and dilation on 03/10/20 17. B. Status post esophagogastroduodenoscopy for a total impacted dilated esophagus and history of esophageal stricture, but none seen on this evaluation. C. Last EGD showed no impaction and esophagus open. D. Tolerating a soft diet. 7. Frailty. 8. Osteoporosis. 9. Episode of nausea, vomiting, and diarrhea on 11/10/2017. A. Resolved as of 11/10/2017. PLAN: Continue present care. Continue physical therapy. The patient due to see Dr. Betts, ortho pedic surgeon 3 weeks postop at the time of the fracture, which will be around the 28th of this month .
[2017-11-16] MEDS: Atorvastatin Calcium 10 MG TAB PO SCH (20:38)
[2017-11-17] MEDS: Alendronate Sodium 70 mg Tablet PO SCH (05:52)
[2017-11-17] MEDS: Aspirin 81 mg Enteric Coated Tablet PO SCH (08:42)
[2017-11-17] MEDS: Lantiseptic Ointment 130 GM JAR TOP SCH ×2 (08:42→20:34)
[2017-11-17] MEDS: Calcium Carbonate + Vit D 1 TAB PO SCH (08:42)
[2017-11-17] MEDS: TROSPIUM 20 MG TABLET PO SCH ×2 (08:43→20:35)
[2017-11-17] MEDS: Enoxaparin Sodium 30 MG/0.3 ML SYRINGE SC SCH (08:43)
[2017-11-17] MEDS: Atorvastatin Calcium 10 MG TAB PO SCH (20:34)
[2017-11-17] MEDS: Acetaminophen 325 MG TAB PO PRN (23:43)
[2017-11-18] MEDS: Aspirin 81 mg Enteric Coated Tablet PO SCH (08:43)
[2017-11-18] MEDS: Enoxaparin Sodium 30 MG/0.3 ML SYRINGE SC SCH (08:43)
[2017-11-18] MEDS: TROSPIUM 20 MG TABLET PO SCH ×2 (08:44→20:21)
[2017-11-18] MEDS: Calcium Carbonate + Vit D 1 TAB PO SCH (08:44)
[2017-11-18] MEDS: Lantiseptic Ointment 130 GM JAR TOP SCH ×2 (08:45→20:22)
--- NOTE | 2017-11-18 11:36 | PRG ---
DATE OF SERVICE: 11/18/2017 SUBJECTIVE: The patient said she is doing good. She is not having any trouble with her swallowing. She has not been on the Reglan. Apparently she was using the Reglan 5 mg before some meals at home, but said she never did know that this really helped her. She has done fine without this medication. She did sit up. She is sitting up for longer periods of time and she said it is getting a little ea sier to transfer. She is still nonweightbearing on the right leg. OBJECTIVE: The patient is alert, appears comfortable and in no distress. Her vital signs shows a te mperature of 96.6, pulse 85, respirations 18, O2 sat 93%, blood pressure 157/67, earlier her pressure was 136/65. Lungs are clear. Heart; regular rate. Lower extremities; no edema. ASSESSMENT: 1. Closed, nondisplaced, nondepressed lateral tibial plateau fracture of the right leg. A. Secondary to a fall on 11/06/2017. B. Leaving the patient nonambulatory. C. Unable to take care of herself and beyond the capability of the family to manage her. D. Stable. Remains non-weightbearing on the right leg as of 11/18/2017. 2. Severe generalized weakness. A. Requires assistance with all her ADLs. B. Now patient is nonweightbearing on the right leg due to fracture of the tibial plateau. C. Patient able to sit up in a chair and is able to stand and pivot with the left leg, but is re quiring moderate to maximum assistance with transference as of 11/18/2017. 3. Coronary artery disease. A. Status post coronary artery bypass in 1993. B. Asymptomatic. 4. Hypertension. 5. Hyperlipidemia. 6. Severe gastroesophageal reflux. Complicated by distal esophageal stricture. A. Status post food bolus impaction requiring EGD, removal of impaction and dilation on 03/10/20 17. B. Status post esophagogastroduodenoscopy for a total impacted dilated esophagus and history of esophageal stricture, but none seen on this evaluation. C. Last EGD showed no impaction and esophagus open. D. Continuing to tolerate a soft diet. 7. Frailty. 8. Osteoporosis. 9. Episode of nausea, vomiting, and diarrhea on 11/10/2017. A. Resolved as of 11/10/2017. PLAN: Continue physical therapy, continue present care. Will arrange for orthopedic surgeon to see her 3 weeks post fall with fracture which will be around 11/27/2017.
[2017-11-18] MEDS: Atorvastatin Calcium 10 MG TAB PO SCH (20:21)
[2017-11-18] MEDS: Acetaminophen 325 MG TAB PO PRN (23:32)
[2017-11-19] MEDS: Acetaminophen 325 MG TAB PO PRN ×2 (04:20→23:52)
[2017-11-19] MEDS: Lantiseptic Ointment 130 GM JAR TOP SCH ×3 (08:36→20:33)
[2017-11-19] MEDS: Aspirin 81 mg Enteric Coated Tablet PO SCH (08:37)
[2017-11-19] MEDS: Calcium Carbonate + Vit D 1 TAB PO SCH (08:37)
[2017-11-19] MEDS: TROSPIUM 20 MG TABLET PO SCH ×2 (08:38→20:33)
[2017-11-19] MEDS: Enoxaparin Sodium 30 MG/0.3 ML SYRINGE SC SCH (08:38)
[2017-11-19] MEDS: Atorvastatin Calcium 10 MG TAB PO SCH (20:39)
[2017-11-20] MEDS: Calcium Carbonate + Vit D 1 TAB PO SCH (08:56)
[2017-11-20] MEDS: Enoxaparin Sodium 30 MG/0.3 ML SYRINGE SC SCH (08:56)
[2017-11-20] MEDS: Aspirin 81 mg Enteric Coated Tablet PO SCH (08:56)
[2017-11-20] MEDS: TROSPIUM 20 MG TABLET PO SCH ×2 (08:56→20:55)
[2017-11-20] MEDS: Lantiseptic Ointment 130 GM JAR TOP SCH ×2 (08:57→20:54)
--- NOTE | 2017-11-20 11:33 | PRG ---
DATE OF SERVICE: 11/20/2017 SUBJECTIVE: The patient thinks she is doing good. Her leg is feeling better. She continues to wear the knee immobilizer. She is sitting up for longer distances and can help transfer now some with th at left leg. The patient said she has had a little cough. It may have been secondary to exposure to a [email or web address] plant that was just brought in. This has been taken out of the room. She has had no f ever. OBJECTIVE: The patient is lying in bed, alert, talkative, and appears very comfortable, in no distre ss. Temp 99.6, pulse 78, respirations 18, O2 sat 96% on room air, blood pressure 157/70. Lungs are clear with good breath sounds. Heart, regular rate. Lower extremities, no edema. Right leg is in a knee immobilizer. ASSESSMENT: 1. Closed, nondisplaced, nondepressed lateral tibial plateau fracture of the right leg. A. Secondary to a fall on 11/06/2017. B. Leaving the patient nonambulatory. C. Unable to take care of herself and beyond the capability of the family to manage her. D. Stable. Remains non-weightbearing on the right leg as of 11/20/2017. 2. Severe generalized weakness. A. Requires assistance with all her ADLs. B. Now patient is nonweightbearing on the right leg due to fracture of the tibial plateau. C. Patient able to sit up in a chair and is able to stand and pivot with the left leg, but is re quiring moderate to maximum assistance with transference as of 11/20/2017. 3. Coronary artery disease. A. Status post coronary artery bypass in 1993. B. Asymptomatic. 4. Hypertension. 5. Hyperlipidemia. 6. Severe gastroesophageal reflux. Complicated by distal esophageal stricture. A. Status post food bolus impaction requiring EGD, removal of impaction and dilation on 03/10/20 17. B. Status post esophagogastroduodenoscopy for a total impacted dilated esophagus and history of esophageal stricture, but none seen on this evaluation. C. Last EGD showed no impaction and esophagus open. D. Continuing to tolerate a soft diet as of 11/20/2017. 7. Frailty. 8. Osteoporosis. 9. Episode of nausea, vomiting, and diarrhea on 11/10/2017. A. Resolved as of 11/10/2017. PLAN: Overall the patient is doing better. Arrangements are being made for her to see her orthopedi c surgeon at 3 weeks post-fracture. The patient's lungs are clear. We will observe her with the lit tle mild cough that she is having. Continue physical therapy.
[2017-11-20] MEDS: Atorvastatin Calcium 10 MG TAB PO SCH (20:55)
[2017-11-21] MEDS: Enoxaparin Sodium 30 MG/0.3 ML SYRINGE SC SCH (08:50)
[2017-11-21] MEDS: Aspirin 81 mg Enteric Coated Tablet PO SCH (08:50)
[2017-11-21] MEDS: Calcium Carbonate + Vit D 1 TAB PO SCH (08:50)
[2017-11-21] MEDS: TROSPIUM 20 MG TABLET PO SCH ×2 (08:51→19:39)
[2017-11-21] MEDS: Lantiseptic Ointment 130 GM JAR TOP SCH ×2 (08:51→19:40)
--- NOTE | 2017-11-21 10:35 | PRG ---
DATE OF SERVICE: 11/21/2017 SUBJECTIVE: The patient said she is doing better. Her leg is feeling better. She is scheduled to s vince Betts, orthopedic surgeon on 12/04/2017 regarding her knee. OBJECTIVE: The patient is sitting up in a bedside commode with her knee immobilizer on. She is aler t, talkative, and appears comfortable. Her temp is 99.1, pulse 97, respirations 18, O2 sat 92%. Blo od pressure 168/69. Lungs are clear. Heart, regular rate. Lower extremities; no edema. ASSESSMENT: 1. Closed, nondisplaced, nondepressed lateral tibial plateau fracture of the right leg. A. Secondary to a fall on 11/06/2017. B. Leaving the patient nonambulatory. C. Unable to take care of herself and beyond the capability of the family to manage her. D. Stable. Remains non-weightbearing on the right leg as of 11/21/2017. 2. Severe generalized weakness. A. Requires assistance with all her ADLs. B. Now patient is nonweightbearing on the right leg due to fracture of the tibial plateau. C. The patient tolerating sitting up in a chair and transferring easier as of 11/21/2017. Still with no weightbearing on the right leg. 3. Coronary artery disease. A. Status post coronary artery bypass in 1993. B. Asymptomatic. 4. Hypertension. 5. Hyperlipidemia. 6. Severe gastroesophageal reflux. Complicated by distal esophageal stricture. A. Status post food bolus impaction requiring EGD, removal of impaction and dilation on 03/10/20 17. B. Status post esophagogastroduodenoscopy for a total impacted dilated esophagus and history of esophageal stricture, but none seen on this evaluation. C. Last EGD showed no impaction and esophagus open. D. Continuing to tolerate a soft diet as of 11/21/2017. 7. Frailty. 8. Osteoporosis. 9. Episode of nausea, vomiting, and diarrhea on 11/10/2017. A. Resolved as of 11/10/2017. PLAN: Continue present care. The patient is scheduled to see orthopedic surgeon 12/04/2017.
[2017-11-21] MEDS: Atorvastatin Calcium 10 MG TAB PO SCH (19:40)
[2017-11-22] MEDS: Aspirin 81 mg Enteric Coated Tablet PO SCH (08:28)
[2017-11-22] MEDS: Calcium Carbonate + Vit D 1 TAB PO SCH (08:28)
[2017-11-22] MEDS: Lantiseptic Ointment 130 GM JAR TOP SCH ×2 (08:29→20:16)
[2017-11-22] MEDS: Enoxaparin Sodium 30 MG/0.3 ML SYRINGE SC SCH (08:29)
[2017-11-22] MEDS: TROSPIUM 20 MG TABLET PO SCH ×2 (08:29→20:15)
[2017-11-22] MEDS ORDERED: guaiFENesin ER 600 MG TAB PO SCH (11:00)
--- NOTE | 2017-11-22 16:59 | PRG ---
DATE OF SERVICE: 11/22/2017 SUBJECTIVE: Patient has had a dry cough for a couple of days and no fever today. The cough has beco me wet and little productive and she is running a little low grade fever up to around 100. She was s tarted on Mucinex 600 mg every 8 hours. A nasal swab for influenza was done that was negative. The patient said she is feeling better, but still coughing. OBJECTIVE: GENERAL: The patient is lying in her bed. She is alert and appears comfortable. She does have a pr oductive sounding cough that also has a wheezy quality of neck. VITAL SIGNS: Her temperature is 99, pulse 89, respirations 16, O2 sat 90% on room air, blood pressur e 149/66. LUNGS: Have some expiratory rhonchi on forced expiration and wheezy sounding cough. There were no r ales. HEART: Regular rate. EXTREMITIES: No edema. ASSESSMENT: Asthmatic bronchitis. PLAN: We will continue the Mucinex. We will utilize Tylenol as needed for fever. We will place her on Levaquin 500 mg daily for [address] her on albuterol inhalation solution by nebulize r 4 times a day.
[2017-11-22] MEDS: Albuterol Sulfate 2.5 mg/3 ml Neb NEB SCH ×2 (17:37→20:15)
[2017-11-22] MEDS: Atorvastatin Calcium 10 MG TAB PO SCH (20:16)
[2017-11-22] MEDS: guaiFENesin ER 600 MG TAB PO SCH (21:10)
[2017-11-23] MEDS: guaiFENesin ER 600 MG TAB PO SCH ×3 (05:53→21:45)
[2017-11-23] MEDS: Albuterol Sulfate 2.5 mg/3 ml Neb NEB SCH ×4 (08:46→20:21)
[2017-11-23] MEDS: Enoxaparin Sodium 30 MG/0.3 ML SYRINGE SC SCH (08:49)
[2017-11-23] MEDS: Calcium Carbonate + Vit D 1 TAB PO SCH (08:49)
[2017-11-23] MEDS: Aspirin 81 mg Enteric Coated Tablet PO SCH (08:50)
[2017-11-23] MEDS: TROSPIUM 20 MG TABLET PO SCH ×2 (08:50→20:22)
[2017-11-23] MEDS: Lantiseptic Ointment 130 GM JAR TOP SCH ×2 (11:00→20:22)
--- NOTE | 2017-11-23 14:43 | PRG ---
DATE OF SERVICE: 11/23/2017 SUBJECTIVE: The patient said she is feeling a lot better today, said her cough is better. OBJECTIVE: GENERAL: The patient lying in bed. She looks better. She is not coughing. She appears in no distr ess. VITAL SIGNS: Her vital signs show temperature 97.1, pulse 86, respirations 18, O2 sat 95% on room ai r, blood pressure 146/67. LUNGS: Have some expiratory wheezes and rhonchi present, but there are good breath sounds. HEART: Regular rate. EXTREMITIES: No edema. ASSESSMENT: 1. Closed, nondisplaced, nondepressed lateral tibial plateau fracture of the right leg. A. Secondary to a fall on 11/06/2017. B. Leaving the patient nonambulatory. C. Unable to take care of herself and beyond the capability of the family to manage her. D. Stable. Remains non-weightbearing on the right leg as of 11/23/2017. 2. Severe generalized weakness. A. Requires assistance with all her ADLs. B. Now patient is nonweightbearing on the right leg due to fracture of the tibial plateau. C. The patient tolerating sitting up in a chair and transferring easier as of 11/23/2017. Still with no weightbearing on the right leg. 3. Coronary artery disease. A. Status post coronary artery bypass in 1993. B. Asymptomatic. 4. Hypertension. 5. Hyperlipidemia. 6. Severe gastroesophageal reflux. Complicated by distal esophageal stricture. A. Status post food bolus impaction requiring EGD, removal of impaction and dilation on 03/10/20 17. B. Status post esophagogastroduodenoscopy for a total impacted dilated esophagus and history of esophageal stricture, but none seen on this evaluation. C. Last EGD showed no impaction and esophagus open. D. Continuing to tolerate a soft diet as of 11/23/2017. 7. Frailty. 8. Osteoporosis. 9. Episode of nausea, vomiting, and diarrhea on 11/10/2017. A. Resolved as of 11/10/2017. 10. Asthmatic bronchitis. A. Onset 11/22/2017. B. Improved as of 11/23/2017. PLAN: Continue present care. Continue physical therapy.
[2017-11-23] MEDS: Atorvastatin Calcium 10 MG TAB PO SCH (20:22)
[2017-11-24] MEDS: Acetaminophen 325 MG TAB PO PRN (02:12)
[2017-11-24] MEDS: Alendronate Sodium 70 mg Tablet PO SCH (05:48)
[2017-11-24] MEDS: guaiFENesin ER 600 MG TAB PO SCH ×3 (05:48→21:01)
--- NOTE | 2017-11-24 09:10 | PRG ---
DATE OF SERVICE: 11/24/2017 SUBJECTIVE: The patient said she is doing better. The patient says her breathing is better. The pa dwight would like to go out on a pass today for a little while. OBJECTIVE: The patient is alert, appears very comfortable and in no distress. Her temperature is 97 .6, pulse 88, respirations 18, O2 sat 95% on room air, blood pressure 149/60. Lungs have good breath sounds. There are some coarse expiratory breath sounds, but did not hear any wheezes today. Overal l, the lungs sound better. Heart, regular rate. Extremities, no edema. ASSESSMENT: 1. Closed, nondisplaced, nondepressed lateral tibial plateau fracture of the right leg. A. Secondary to a fall on 11/06/2017. B. Leaving the patient nonambulatory. C. Unable to take care of herself and beyond the capability of the family to manage her. D. Stable. Remains non-weightbearing on the right leg as of 11/24/2017. 2. Severe generalized weakness. A. Requires assistance with all her ADLs. B. Now patient is nonweightbearing on the right leg due to fracture of the tibial plateau. C. The patient tolerating sitting up in a chair and transferring easier as of 11/24/2017. Still with no weightbearing on the right leg. 3. Coronary artery disease. A. Status post coronary artery bypass in 1993. B. Asymptomatic. 4. Hypertension. 5. Hyperlipidemia. 6. Severe gastroesophageal reflux. Complicated by distal esophageal stricture. A. Status post food bolus impaction requiring EGD, removal of impaction and dilation on 03/10/20 17. B. Status post esophagogastroduodenoscopy for a total impacted dilated esophagus and history of esophageal stricture, but none seen on this evaluation. C. Last EGD showed no impaction and esophagus open. D. Continuing to tolerate a soft diet as of 11/23/2017. 7. Frailty. 8. Osteoporosis. 9. Episode of nausea, vomiting, and diarrhea on 11/10/2017. A. Resolved as of 11/10/2017. 10. Asthmatic bronchitis. A. Onset 11/22/2017. B. Improved as of 11/24/2017. PLAN: Continue present care. The patient may go on a pass today. Her family has arranged for a [employer] van that is wheelchair assessable to take her home in and that way she can stay in the wheelcha ir.
[2017-11-24] MEDS: Calcium Carbonate + Vit D 1 TAB PO SCH (09:46)
[2017-11-24] MEDS: Aspirin 81 mg Enteric Coated Tablet PO SCH (09:46)
[2017-11-24] MEDS: Albuterol Sulfate 2.5 mg/3 ml Neb NEB SCH ×4 (09:46→20:44)
[2017-11-24] MEDS: Enoxaparin Sodium 30 MG/0.3 ML SYRINGE SC SCH (09:46)
[2017-11-24] MEDS: TROSPIUM 20 MG TABLET PO SCH ×2 (09:46→20:43)
[2017-11-24] MEDS: Lantiseptic Ointment 130 GM JAR TOP SCH ×2 (10:01→21:01)
[2017-11-24] MEDS: Atorvastatin Calcium 10 MG TAB PO SCH (20:43)
[2017-11-25] MEDS: guaiFENesin ER 600 MG TAB PO SCH ×3 (05:25→20:42)
[2017-11-25] MEDS: Enoxaparin Sodium 30 MG/0.3 ML SYRINGE SC SCH (08:59)
[2017-11-25] MEDS: TROSPIUM 20 MG TABLET PO SCH ×2 (08:59→20:14)
[2017-11-25] MEDS: Aspirin 81 mg Enteric Coated Tablet PO SCH (08:59)
[2017-11-25] MEDS: Calcium Carbonate + Vit D 1 TAB PO SCH (08:59)
[2017-11-25] MEDS: Lantiseptic Ointment 130 GM JAR TOP SCH ×2 (09:00→20:14)
[2017-11-25] MEDS: Albuterol Sulfate 2.5 mg/3 ml Neb NEB SCH ×4 (09:00→20:15)
[2017-11-25] MEDS: Atorvastatin Calcium 10 MG TAB PO SCH (20:13)
[2017-11-26] MEDS: guaiFENesin ER 600 MG TAB PO SCH ×3 (05:29→20:17)
[2017-11-26] MEDS: Albuterol Sulfate 2.5 mg/3 ml Neb NEB SCH ×4 (08:28→19:53)
[2017-11-26] MEDS: Aspirin 81 mg Enteric Coated Tablet PO SCH (08:29)
[2017-11-26] MEDS: Calcium Carbonate + Vit D 1 TAB PO SCH (08:29)
[2017-11-26] MEDS: Lantiseptic Ointment 130 GM JAR TOP SCH ×2 (08:30→19:54)
[2017-11-26] MEDS: Enoxaparin Sodium 30 MG/0.3 ML SYRINGE SC SCH (08:30)
[2017-11-26] MEDS: TROSPIUM 20 MG TABLET PO SCH ×2 (08:31→19:54)
--- NOTE | 2017-11-26 14:31 | PRG ---
DATE OF SERVICE: 11/26/2017 SUBJECTIVE: The patient said she is feeling better. The right leg feels better. She is breathing g ood. She said she is not coughing. OBJECTIVE: The patient is lying in bed, alert, talkative, appears very comfortable and in no distres s. Temp 97.8, pulse 84, respirations 18, O2 sat 95% on room air, blood pressure 130/61. Lungs are c lear except for some rhonchi over the right posterior chest. Heart, regular rate. Extremities, no e filiberto. Right leg is in a knee immobilizer. ASSESSMENT: 1. Closed, nondisplaced, nondepressed lateral tibial plateau fracture of the right leg. A. Secondary to a fall on 11/06/2017. B. Leaving the patient nonambulatory. C. Unable to take care of herself and beyond the capability of the family to manage her. D. Stable. Remains non-weightbearing on the right leg as of 11/26/2017. 2. Severe generalized weakness. A. Requires assistance with all her ADLs. B. Now patient is nonweightbearing on the right leg due to fracture of the tibial plateau. C. The patient tolerating sitting up in a chair and transferring easier as of 11/26/2017. Still with no weightbearing on the right leg. 3. Coronary artery disease. A. Status post coronary artery bypass in 1993. B. Asymptomatic. 4. Hypertension. 5. Hyperlipidemia. 6. Severe gastroesophageal reflux. Complicated by distal esophageal stricture. A. Status post food bolus impaction requiring EGD, removal of impaction and dilation on 03/10/20 17. B. Status post esophagogastroduodenoscopy for a total impacted dilated esophagus and history of esophageal stricture, but none seen on this evaluation. C. Last EGD showed no impaction and esophagus open. D. Continuing to tolerate a soft diet as of 11/26/2017. 7. Frailty. 8. Osteoporosis. 9. Episode of nausea, vomiting, and diarrhea on 11/10/2017. A. Resolved as of 11/10/2017. 10. Asthmatic bronchitis. A. Onset 11/22/2017. B. Continued improvement as of 11/26/2017. PLAN: Continue present care. Continue physical therapy. Due to see the orthopedic surgeon on 12/04. The patient said at home she had been off of the Fosamax due to her severe reflux. The Fosam ax/alendronate will be discontinued.
[2017-11-26] MEDS: Atorvastatin Calcium 10 MG TAB PO SCH (19:53)
[2017-11-27] MEDS: guaiFENesin ER 600 MG TAB PO SCH ×3 (05:27→21:18)
[2017-11-27] MEDS: Albuterol Sulfate 2.5 mg/3 ml Neb NEB SCH ×4 (08:45→20:27)
[2017-11-27] MEDS: Aspirin 81 mg Enteric Coated Tablet PO SCH (08:46)
[2017-11-27] MEDS: Enoxaparin Sodium 30 MG/0.3 ML SYRINGE SC SCH (08:46)
[2017-11-27] MEDS: TROSPIUM 20 MG TABLET PO SCH ×2 (08:46→20:29)
[2017-11-27] MEDS: Calcium Carbonate + Vit D 1 TAB PO SCH (08:47)
[2017-11-27] MEDS: Lantiseptic Ointment 130 GM JAR TOP SCH ×2 (08:47→20:30)
[2017-11-27] MEDS: Atorvastatin Calcium 10 MG TAB PO SCH (20:29)
[2017-11-28] MEDS: guaiFENesin ER 600 MG TAB PO SCH ×3 (05:28→23:39)
[2017-11-28] MEDS: Albuterol Sulfate 2.5 mg/3 ml Neb NEB SCH ×4 (09:09→20:14)
[2017-11-28] MEDS: Aspirin 81 mg Enteric Coated Tablet PO SCH (09:10)
[2017-11-28] MEDS: Calcium Carbonate + Vit D 1 TAB PO SCH (09:11)
[2017-11-28] MEDS: Enoxaparin Sodium 30 MG/0.3 ML SYRINGE SC SCH (09:11)
[2017-11-28] MEDS: Lantiseptic Ointment 130 GM JAR TOP SCH ×2 (09:11→20:14)
[2017-11-28] MEDS: TROSPIUM 20 MG TABLET PO SCH ×2 (09:12→20:13)
--- NOTE | 2017-11-28 15:38 | PRG ---
DATE OF SERVICE: 11/28/2017 SUBJECTIVE: The patient said she is feeling better. She is getting a little stronger. She was able to shower yesterday. Sat in the shower chair and enjoyed this. She is doing better with her therap y. She is able to stand longer. OBJECTIVE: GENERAL: The patient is sitting up in a chair, is alert and appears very comfortable, in no distress . VITAL SIGNS: Temperature is 97.1, pulse 90, respirations 18, O2 sat 97% on room air, blood pressure 143/63. LUNGS: Clear. HEART: Regular rate. ASSESSMENT: 1. Closed, nondisplaced, nondepressed lateral tibial plateau fracture of the right leg. A. Secondary to a fall on 11/06/2017. B. Leaving the patient nonambulatory. C. Unable to take care of herself and beyond the capability of the family to manage her. D. Stable. Remains in a knee immobilizer. Remains not weightbearing on the right leg. 2. Severe generalized weakness. A. Requires assistance with all her ADLs. B. Now patient is nonweightbearing on the right leg due to fracture of the tibial plateau. C. Overall strength is improving, sitting in chair longer period, transferring easier and able t o stand for longer periods as of 11/28/2017. 3. Coronary artery disease. A. Status post coronary artery bypass in 1993. B. Asymptomatic. 4. Hypertension. 5. Hyperlipidemia. 6. Severe gastroesophageal reflux. Complicated by distal esophageal stricture. A. Status post food bolus impaction requiring EGD, removal of impaction and dilation on 03/10/20 17. B. Status post esophagogastroduodenoscopy for a total impacted dilated esophagus and history of esophageal stricture, but none seen on this evaluation. C. Last EGD showed no impaction and esophagus open. D. Continuing to tolerate a soft diet as of 11/28/2017. 7. Frailty. 8. Osteoporosis. 9. Episode of nausea, vomiting, and diarrhea on 11/10/2017. A. Resolved as of 11/10/2017. 10. Asthmatic bronchitis. A. Onset 11/22/2017. B. Continued improvement as of 11/28/2017. PLAN: Continue present care. Continue physical therapy.
[2017-11-28] MEDS: Atorvastatin Calcium 10 MG TAB PO SCH (20:13)
[2017-11-29] MEDS: guaiFENesin ER 600 MG TAB PO SCH ×3 (06:06→20:36)
[2017-11-29] MEDS: Enoxaparin Sodium 30 MG/0.3 ML SYRINGE SC SCH (08:42)
[2017-11-29] MEDS: Aspirin 81 mg Enteric Coated Tablet PO SCH (08:43)
[2017-11-29] MEDS: Albuterol Sulfate 2.5 mg/3 ml Neb NEB SCH ×4 (08:43→20:34)
[2017-11-29] MEDS: Calcium Carbonate + Vit D 1 TAB PO SCH (08:44)
[2017-11-29] MEDS: Lantiseptic Ointment 130 GM JAR TOP SCH ×2 (08:44→20:35)
[2017-11-29] MEDS: TROSPIUM 20 MG TABLET PO SCH ×2 (08:44→20:32)
[2017-11-29] MEDS: Atorvastatin Calcium 10 MG TAB PO SCH (20:34)
[2017-11-30] MEDS: guaiFENesin ER 600 MG TAB PO SCH ×3 (05:37→21:40)
[2017-11-30] MEDS: Enoxaparin Sodium 30 MG/0.3 ML SYRINGE SC SCH (09:47)
[2017-11-30] MEDS: Albuterol Sulfate 2.5 mg/3 ml Neb NEB SCH ×4 (09:47→20:05)
[2017-11-30] MEDS: Calcium Carbonate + Vit D 1 TAB PO SCH (09:48)
[2017-11-30] MEDS: Aspirin 81 mg Enteric Coated Tablet PO SCH (09:48)
[2017-11-30] MEDS: TROSPIUM 20 MG TABLET PO SCH ×2 (09:48→20:02)
[2017-11-30] MEDS: Lantiseptic Ointment 130 GM JAR TOP SCH ×2 (09:55→20:03)
--- NOTE | 2017-11-30 17:19 | PRG ---
DATE OF SERVICE: 11/30/2017 SUBJECTIVE: The patient thinks she is doing good. She has no complaints. She is eating good. Her right knee is not really given her much troubles. She keeps this in a knee immobilizer. OBJECTIVE: GENERAL: The patient is sitting up in her bed, eating her breakfast. She is alert and appears comfo rtable and in no distress. VITAL SIGNS: Temperature 98, pulse 86, respirations 20, O2 sat 98% on room air, and blood pressure 1 31/59. LUNGS: Clear. HEART: Regular rate. EXTREMITIES: No edema. ASSESSMENT: 1. Closed, nondisplaced, nondepressed lateral tibial plateau fracture of the right leg. A. Secondary to a fall on 11/06/2017. B. Leaving the patient nonambulatory. C. Unable to take care of herself and beyond the capability of the family to manage her. D. Stable. Pain well controlled. Remains in a knee immobilizer. Remains on nonweightbearing w ith a right leg as of 11/30/2017. 2. Severe generalized weakness. A. Requires assistance with all her ADLs. B. Now patient is nonweightbearing on the right leg due to fracture of the tibial plateau. C. Overall strength is improving, sitting in chair longer period, transferring easier and able t o stand for longer periods as of 11/30/2017. 3. Coronary artery disease. A. Status post coronary artery bypass in 1993. B. Asymptomatic. 4. Hypertension. 5. Hyperlipidemia. 6. Severe gastroesophageal reflux. Complicated by distal esophageal stricture. A. Status post food bolus impaction requiring EGD, removal of impaction and dilation on 03/10/20 17. B. Status post esophagogastroduodenoscopy for a total impacted dilated esophagus and history of esophageal stricture, but none seen on this evaluation. C. Last EGD showed no impaction and esophagus open. D. Continuing to tolerate a soft diet as of 11/30/2017. 7. Frailty. 8. Osteoporosis. 9. Episode of nausea, vomiting, and diarrhea on 11/10/2017. A. Resolved as of 11/10/2017. 10. Asthmatic bronchitis. A. Onset 11/22/2017. B. Resolved as of 11/30/2017. PLAN: Continue present care. Continue physical therapy. The patient is scheduled to see orthopedic surgeon, Dr. Betts regarding her knee on 12/04/2017.
[2017-11-30] MEDS: Atorvastatin Calcium 10 MG TAB PO SCH (20:02)
[2017-12-01] MEDS: guaiFENesin ER 600 MG TAB PO SCH ×3 (05:49→21:14)
[2017-12-01] MEDS: Enoxaparin Sodium 30 MG/0.3 ML SYRINGE SC SCH (09:14)
[2017-12-01] MEDS: Aspirin 81 mg Enteric Coated Tablet PO SCH (09:15)
[2017-12-01] MEDS: TROSPIUM 20 MG TABLET PO SCH ×2 (09:15→21:18)
[2017-12-01] MEDS: Calcium Carbonate + Vit D 1 TAB PO SCH (09:16)
[2017-12-01] MEDS: Albuterol Sulfate 2.5 mg/3 ml Neb NEB SCH ×4 (09:24→21:11)
[2017-12-01] MEDS: Lantiseptic Ointment 130 GM JAR TOP SCH ×2 (11:47→21:18)
[2017-12-01] MEDS: Atorvastatin Calcium 10 MG TAB PO SCH (21:11)
[2017-12-02] MEDS: guaiFENesin ER 600 MG TAB PO SCH ×3 (05:45→20:22)
[2017-12-02] MEDS: Aspirin 81 mg Enteric Coated Tablet PO SCH (08:31)
[2017-12-02] MEDS: Calcium Carbonate + Vit D 1 TAB PO SCH (08:31)
[2017-12-02] MEDS: TROSPIUM 20 MG TABLET PO SCH ×2 (08:31→20:22)
[2017-12-02] MEDS: Enoxaparin Sodium 30 MG/0.3 ML SYRINGE SC SCH (08:31)
[2017-12-02] MEDS: Lantiseptic Ointment 130 GM JAR TOP SCH ×2 (08:33→20:21)
--- NOTE | 2017-12-02 09:42 | PRG ---
DATE OF SERVICE: 12/02/2017 SUBJECTIVE: The patient said she is doing okay. She said she is a little sore in her left shoulder, sometimes she has trouble with. She thinks she may have just moved it a little more than usual. He r knee is doing better. She is due to see the orthopedic surgeon this week on the . The patient h as completed a 7-day course of the Levaquin. OBJECTIVE: The patient is alert and appears in no distress. Her vital signs show temperature 97.2, pulse 93, respirations 18, O2 sat 94%, blood pressure 122/42. Lungs are clear. Heart, regular rate. Right knee is in the knee immobilizer. There is no edema in the lower leg. ASSESSMENT: 1. Closed, nondisplaced, nondepressed lateral tibial plateau fracture of the right leg. A. Secondary to a fall on 11/06/2017. B. Leaving the patient nonambulatory. C. Unable to take care of herself and beyond the capability of the family to manage her. D. Stable. Pain well controlled. Remains in a knee immobilizer. Remains on nonweightbearing with a right leg as of 12/02/2017. 2. Severe generalized weakness. A. Requires assistance with all her ADLs. B. Now patient is nonweightbearing on the right leg due to fracture of the tibial plateau. C. Overall strength is improving, sitting in chair longer period, transferring easier and able t o stand for longer periods as of 12/02/2017. 3. Coronary artery disease. A. Status post coronary artery bypass in 1993. B. Asymptomatic. 4. Hypertension. 5. Hyperlipidemia. 6. Severe gastroesophageal reflux. Complicated by distal esophageal stricture. A. Status post food bolus impaction requiring EGD, removal of impaction and dilation on 03/10/20 17. B. Status post esophagogastroduodenoscopy for a total impacted dilated esophagus and history of esophageal stricture, but none seen on this evaluation. C. Last EGD showed no impaction and esophagus open. D. Continuing to tolerate a soft diet as of 12/02/2017. 7. Frailty. 8. Osteoporosis. 9. Episode of nausea, vomiting, and diarrhea on 11/10/2017. A. Resolved as of 11/10/2017. 10. Asthmatic bronchitis. A. Onset 11/22/2017. B. Resolved as of 11/30/2017. PLAN: Continue physical therapy. The patient has completed the Levaquin. Continue the neb treatmen t as needed. The patient is scheduled see the orthopedic surgeon on 12/04/2017.
[2017-12-02] MEDS: Acetaminophen 325 MG TAB PO PRN (20:21)
[2017-12-02] MEDS: Atorvastatin Calcium 10 MG TAB PO SCH (20:22)
[2017-12-03] MEDS: Acetaminophen 325 MG TAB PO PRN (00:18)
[2017-12-03] MEDS: guaiFENesin ER 600 MG TAB PO SCH ×3 (05:43→20:38)
[2017-12-03] MEDS: TROSPIUM 20 MG TABLET PO SCH ×2 (08:28→20:39)
[2017-12-03] MEDS: Calcium Carbonate + Vit D 1 TAB PO SCH (08:28)
[2017-12-03] MEDS: Aspirin 81 mg Enteric Coated Tablet PO SCH (08:28)
[2017-12-03] MEDS: Lantiseptic Ointment 130 GM JAR TOP SCH ×2 (08:28→20:41)
[2017-12-03] MEDS: Enoxaparin Sodium 30 MG/0.3 ML SYRINGE SC SCH (08:29)
[2017-12-03] MEDS: Atorvastatin Calcium 10 MG TAB PO SCH (20:37)
[2017-12-04] MEDS: guaiFENesin ER 600 MG TAB PO SCH ×3 (05:41→20:51)
[2017-12-04] MEDS: Acetaminophen 325 MG TAB PO PRN ×2 (07:35→13:32)
[2017-12-04] MEDS: TROSPIUM 20 MG TABLET PO SCH ×2 (09:06→20:51)
[2017-12-04] MEDS: Enoxaparin Sodium 30 MG/0.3 ML SYRINGE SC SCH (09:07)
[2017-12-04] MEDS: Aspirin 81 mg Enteric Coated Tablet PO SCH (09:07)
[2017-12-04] MEDS: Calcium Carbonate + Vit D 1 TAB PO SCH (09:07)
[2017-12-04] MEDS: Lantiseptic Ointment 130 GM JAR TOP SCH ×2 (09:08→20:57)
--- NOTE | 2017-12-04 13:53 | PRG ---
DATE OF SERVICE: 12/04/2017 SUBJECTIVE: The patient said she is doing alright. Her right knee is doing good. She continues to wear her knee immobilizer and is nonweightbearing on that right side. She had a little cough yesterd ay, but she does not have the wheezing and no fever. Today, she goes to see Dr. Betts. Family me mbers accompanying her. OBJECTIVE: GENERAL: The patient is sitting up in a bedside commode eating her breakfast. She is alert, appears comfortable, in no distress. VITAL SIGNS: Temperature 97, pulse 78, respirations 20, O2 saturation 97%, blood pressure 156/64. LUNGS: Clear. HEART: Regular rate. EXTREMITIES: Right leg is in a knee immobilizer, which has no edema. ASSESSMENT: 1. Closed, nondisplaced, nondepressed lateral tibial plateau fracture of the right leg. A. Secondary to a fall on 11/06/2017. B. Leaving the patient nonambulatory. C. Unable to take care of herself and beyond the capability of the family to manage her. D. Stable. Pain well controlled. Remains in a knee immobilizer. Remains on nonweightbearing with a right leg as of 12/04/2017. 2. Severe generalized weakness. A. Requires assistance with all her ADLs. B. Now patient is nonweightbearing on the right leg due to fracture of the tibial plateau. C. General strength improved. Patient still is nonweightbearing on the right leg as of 12/04/19 18. 3. Coronary artery disease. A. Status post coronary artery bypass in 1993. B. Asymptomatic. 4. Hypertension. 5. Hyperlipidemia. 6. Severe gastroesophageal reflux. Complicated by distal esophageal stricture. A. Status post food bolus impaction requiring EGD, removal of impaction and dilation on 03/10/20 17. B. Status post esophagogastroduodenoscopy for a total impacted dilated esophagus and history of esophageal stricture, but none seen on this evaluation. C. Last EGD showed no impaction and esophagus open. D. Continuing to tolerate a soft diet as of 12/04/2017. 7. Frailty. 8. Osteoporosis. 9. Episode of nausea, vomiting, and diarrhea on 11/10/2017. A. Resolved as of 11/10/2017. 10. Asthmatic bronchitis. A. Onset 11/22/2017. B. Resolved as of 11/30/2017. PLAN: Continue present care. Continue physical therapy. The patient due to see Dr. Betts, ortho pedic surgery regarding the tibial plateau fracture and she is now 28 days post-fracture of that righ t lateral tibial plateau, undisplaced.
[2017-12-04 18:23] VITALS: BMI 18.1
[2017-12-04] MEDS: Atorvastatin Calcium 10 MG TAB PO SCH (20:52)
[2017-12-05] MEDS: guaiFENesin ER 600 MG TAB PO SCH ×3 (05:29→21:06)
[2017-12-05] MEDS: TROSPIUM 20 MG TABLET PO SCH ×2 (08:09→21:05)
[2017-12-05] MEDS: Calcium Carbonate + Vit D 1 TAB PO SCH (08:11)
[2017-12-05] MEDS: Aspirin 81 mg Enteric Coated Tablet PO SCH (08:11)
[2017-12-05] MEDS: Lantiseptic Ointment 130 GM JAR TOP SCH ×2 (08:12→21:09)
[2017-12-05] MEDS: Enoxaparin Sodium 30 MG/0.3 ML SYRINGE SC SCH (08:13)
[2017-12-05] MEDS: Acetaminophen 325 MG TAB PO PRN (10:24)
--- NOTE | 2017-12-05 11:22 | PRG ---
DATE OF SERVICE: 12/05/2017 SUBJECTIVE: The patient said she is feeling good today. Yesterday her visit went real good with Dr. Betts, the orthopedic surgeon. He re-x-rayed her knee and he was happy with her progress. He hernandez s recommended removal of the knee brace which has been done and that she can begin weightbearing up t o 50% on the right leg. Also, he ordered range of motion and strengthening exercises of that leg. Mounika patiño will see her in followup on 01/15/2018. OBJECTIVE: The patient is sitting up in a chair. Her knee immobilizer is off. She appears comforta ble, in no distress. Her vital signs show a temperature of 97.6, pulse 80, respirations 18, O2 sat 9 5% on room air, blood pressure 164/70. Lungs are clear. Heart, regular rate. Extremities, no edema . ASSESSMENT: 1. Closed, nondisplaced, nondepressed lateral tibial plateau fracture of the right leg. A. Secondary to a fall on 11/06/2017. B. Leaving the patient nonambulatory. C. Unable to take care of herself and beyond the capability of the family to manage her. D. Improved. Visit with the orthopedic surgeon, Dr. Betts on 12/05/2017 indicated good progr ess. Recommended removal of the splint which has been done and weightbearing up to 50% on the right leg with range of mot ion and strengthening exercise as of 12/05/2017. 2. Severe generalized weakness. A. Requires assistance with all her ADLs. B. Now patient is nonweightbearing on the right leg due to fracture of the tibial plateau. C. General strength improved. Patient still is nonweightbearing on the right leg as of 12/04/19 18. 3. Coronary artery disease. A. Status post coronary artery bypass in 1993. B. Asymptomatic. 4. Hypertension. 5. Hyperlipidemia. 6. Severe gastroesophageal reflux. Complicated by distal esophageal stricture. A. Status post food bolus impaction requiring EGD, removal of impaction and dilation on 03/10/20 17. B. Status post esophagogastroduodenoscopy for a total impacted dilated esophagus and history of esophageal stricture, but none seen on this evaluation. C. Last EGD showed no impaction and esophagus open. D. Continuing to tolerate a soft diet as of 12/04/2017. 7. Frailty. 8. Osteoporosis. 9. Episode of nausea, vomiting, and diarrhea on 11/10/2017. A. Resolved as of 11/10/2017. 10. Asthmatic bronchitis. A. Onset 11/22/2017. B. Resolved as of 11/30/2017. PLAN: The patient's knee immobilizer has been stopped. Physical therapy is working her now with oswaldo ghtbearing up to 50% on the right and also range of motion and strengthening exercises of the right l eg. We will continue the physical therapy.
[2017-12-05] MEDS: Ondansetron ODT 4 MG TAB PO PRN (12:30)
[2017-12-05] MEDS: Atorvastatin Calcium 10 MG TAB PO SCH (21:06)
[2017-12-06] MEDS: guaiFENesin ER 600 MG TAB PO SCH ×3 (05:44→20:26)
[2017-12-06] MEDS: Calcium Carbonate + Vit D 1 TAB PO SCH (08:59)
[2017-12-06] MEDS: Aspirin 81 mg Enteric Coated Tablet PO SCH (08:59)
[2017-12-06] MEDS: Enoxaparin Sodium 30 MG/0.3 ML SYRINGE SC SCH (09:01)
[2017-12-06] MEDS: Lantiseptic Ointment 130 GM JAR TOP SCH ×2 (09:02→20:25)
[2017-12-06] MEDS: TROSPIUM 20 MG TABLET PO SCH ×2 (09:03→20:25)
[2017-12-06] MEDS: Atorvastatin Calcium 10 MG TAB PO SCH (20:25)
[2017-12-07] MEDS: guaiFENesin ER 600 MG TAB PO SCH ×3 (05:20→20:47)
[2017-12-07] MEDS: TROSPIUM 20 MG TABLET PO SCH ×2 (09:38→20:46)
[2017-12-07] MEDS: Calcium Carbonate + Vit D 1 TAB PO SCH (09:39)
[2017-12-07] MEDS: Aspirin 81 mg Enteric Coated Tablet PO SCH (09:40)
[2017-12-07] MEDS: Enoxaparin Sodium 30 MG/0.3 ML SYRINGE SC SCH (09:40)
[2017-12-07] MEDS: Lantiseptic Ointment 130 GM JAR TOP SCH ×2 (09:40→20:48)
[2017-12-07] MEDS: Atorvastatin Calcium 10 MG TAB PO SCH (20:46)
[2017-12-08] MEDS: guaiFENesin ER 600 MG TAB PO SCH ×3 (05:38→20:34)
--- NOTE | 2017-12-08 08:48 | PRG ---
DATE OF SERVICE: 12/08/2017 SUBJECTIVE: The patient said her knee is feeling better. She can move it better. She is not having the pain in the knee like she was. She is having trouble with her left shoulder, it has been hurtin g and she has had some limitation in movement. She does not know if the increased physical therapy h as just aggravated that or what. She has not had any injury to the shoulder. OBJECTIVE: The patient is lying in bed, alert, appears comfortable. Temp 97.9, pulse 84, respiratio ns 18, O2 sat 95% on room air, blood pressure 138/64. Lungs are clear. Heart; regular rate. Left s houlder; there is no redness or swelling. The patient has decreased range of motion. She has some d eformity of the left shoulder which is old, but she has had history of a previous rotator cuff repair of the shoulder. Her right knee; there is no effusion, no redness, no bruising. The patient's rang e of motion is improving. ASSESSMENT: 1. Closed, nondisplaced, nondepressed lateral tibial plateau fracture of the right leg. A. Secondary to a fall on 11/06/2017. B. Leaving the patient nonambulatory. C. Unable to take care of herself and beyond the capability of the family to manage her. D. Improved. Visit with the orthopedic surgeon, Dr. Betts on 12/05/2017 indicated good progr ess. Recommended removal of the splint which has been done and weightbearing up to 50% on the right leg with range of mot ion and strengthening exercise as of 12/05/2017. E. Right knee is improving, gain Improving as of 12/08/2017. 2. Severe generalized weakness. A. Requires assistance with all her ADLs. B. Now patient is nonweightbearing on the right leg due to fracture of the tibial plateau. C. Improved. Now weight bearing up to 50% on the right leg as of 12/08/2017. 3. Coronary artery disease. A. Status post coronary artery bypass in 1993. B. Asymptomatic. 4. Hypertension. 5. Hyperlipidemia. 6. Severe gastroesophageal reflux. Complicated by distal esophageal stricture. A. Status post food bolus impaction requiring EGD, removal of impaction and dilation on 03/10/20 17. B. Status post esophagogastroduodenoscopy for a total impacted dilated esophagus and history of esophageal stricture, but none seen on this evaluation. C. Last EGD showed no impaction and esophagus open. D. Continuing to tolerate a soft diet as of 12/04/2017. 7. Frailty. 8. Osteoporosis. 9. Episode of nausea, vomiting, and diarrhea on 11/10/2017. A. Resolved as of 11/10/2017. 10. Asthmatic bronchitis. A. Onset 11/22/2017. B. Resolved as of 11/30/2017. 11. Left shoulder pain. A. History of rotator cuff repair. PLAN: Continue physical therapy, apply moist heat to the shoulder intermittently. X-ray of the left shoulder.
[2017-12-08] MEDS: Aspirin 81 mg Enteric Coated Tablet PO SCH (09:39)
[2017-12-08] MEDS: Calcium Carbonate + Vit D 1 TAB PO SCH (09:39)
[2017-12-08] MEDS: TROSPIUM 20 MG TABLET PO SCH ×2 (09:40→20:33)
[2017-12-08] MEDS: Enoxaparin Sodium 30 MG/0.3 ML SYRINGE SC SCH (09:41)
[2017-12-08] MEDS: Lantiseptic Ointment 130 GM JAR TOP SCH ×2 (09:41→20:34)
--- NOTE | 2017-12-08 10:05 | RAD ---
THREE VIEWS OF THE LEFT SHOULDER: DATE: 12/08/17. COMPARISON: 06/20/16. HISTORY: Left shoulder pain, history of rotator cuff repair. FINDINGS: There is no widening of the acromioclavicular or coracoclavicular interspace. Old fracture is seen i nvolving the scapula at the base of the glenoid, as seen on 06/20/16 exam. Scapula Y view is limited secondary to motion. No evidence for dislocation is seen. There is elevation of the left humeral he ad, which abuts the undersurface of the acromion, consistent with history of rotator cuff tear. Post surgical anchors overlie the left humeral head. IMPRESSION: Postoperative and degenerative changes involving the left shoulder, grossly unchanged. POS: [facility]
[2017-12-08] MEDS: Atorvastatin Calcium 10 MG TAB PO SCH (20:33)
[2017-12-08] MEDS: Acetaminophen 325 MG TAB PO PRN (22:17)
[2017-12-09] MEDS: guaiFENesin ER 600 MG TAB PO SCH ×3 (05:04→21:40)
[2017-12-09] MEDS: Enoxaparin Sodium 30 MG/0.3 ML SYRINGE SC SCH (10:11)
[2017-12-09] MEDS: Calcium Carbonate + Vit D 1 TAB PO SCH (10:12)
[2017-12-09] MEDS: Aspirin 81 mg Enteric Coated Tablet PO SCH (10:12)
[2017-12-09] MEDS: TROSPIUM 20 MG TABLET PO SCH ×2 (10:12→20:40)
[2017-12-09] MEDS: Lantiseptic Ointment 130 GM JAR TOP SCH ×2 (10:19→20:40)
[2017-12-09] MEDS: Atorvastatin Calcium 10 MG TAB PO SCH (20:40)
[2017-12-10] MEDS: guaiFENesin ER 600 MG TAB PO SCH ×3 (06:10→21:22)
[2017-12-10] MEDS: Enoxaparin Sodium 30 MG/0.3 ML SYRINGE SC SCH (08:14)
[2017-12-10] MEDS: TROSPIUM 20 MG TABLET PO SCH ×2 (08:14→21:22)
[2017-12-10] MEDS: Calcium Carbonate + Vit D 1 TAB PO SCH (08:15)
[2017-12-10] MEDS: Aspirin 81 mg Enteric Coated Tablet PO SCH (08:16)
[2017-12-10] MEDS: Lantiseptic Ointment 130 GM JAR TOP SCH ×2 (08:16→21:22)
--- NOTE | 2017-12-10 11:35 | PRG ---
DATE OF SERVICE: 12/10/2017 SUBJECTIVE: The patient said she is feeling better. Her left shoulder is still a little sore, maybe not as much as what it had been. She has backed off some of her exercise with her arms. I reviewed with her the results of the x-ray of the left shoulder which showed that she had the previous rotato r cuff repair and has significant arthritic change in the shoulder, suspect that the pain has been fr om the arthritis with the increased utilization and aggravation of her arthritis, indicated these fin dings to her and suggest she still lay back on the exercises with that shoulder and continue the heat on the shoulder. The patient said she is doing better with her walking. She was walking yesterday up to 350 feet with a rolling walker and chair behind her. She has made very significant progress. OBJECTIVE: The patient is lying in bed, looks comfortable. Her temp is 97.6, pulse 84, respirations 18, O2 sat 95% on room air, blood pressure 139/65. Lungs are clear. Heart, regular rate. ASSESSMENT: 1. Closed, nondisplaced, nondepressed lateral tibial plateau fracture of the right leg. A. Secondary to a fall on 11/06/2017. B. Leaving the patient nonambulatory. C. Unable to take care of herself and beyond the capability of the family to manage her. D. Marked improvement. Ambulating with a rolling walker much further as of 12/10/2017. 2. Severe generalized weakness. A. Requires assistance with all her ADLs. B. Now patient is nonweightbearing on the right leg due to fracture of the tibial plateau. C. Continued improvement as of 12/10/2017. 3. Coronary artery disease. A. Status post coronary artery bypass in 1993. B. Asymptomatic. 4. Hypertension. 5. Hyperlipidemia. 6. Severe gastroesophageal reflux. Complicated by distal esophageal stricture. A. Status post food bolus impaction requiring EGD, removal of impaction and dilation on 03/10/20 17. B. Status post esophagogastroduodenoscopy for a total impacted dilated esophagus and history of esophageal stricture, but none seen on this evaluation. C. Last EGD showed no impaction and esophagus open. D. Continuing to tolerate a soft diet as of 12/10/2017. 7. Frailty. 8. Osteoporosis. 9. Episode of nausea, vomiting, and diarrhea on 11/10/2017. A. Resolved as of 11/10/2017. 10. Asthmatic bronchitis. A. Onset 11/22/2017. B. Resolved as of 11/30/2017. 11. Left shoulder pain. A. History of rotator cuff repair. B. X-ray showed no fracture, showed evidence of previous rotator cuff repair and significant art hritis. C. Etiology of the pain secondary to the arthritis with acute exacerbation from the increased ut ilization. PLAN: 1. Continue physical therapy. 2. Continue heat applications to the left shoulder and use the left arm within her comfort zone. As the patient gets stronger then consider going home with assistance.
[2017-12-10] MEDS: Atorvastatin Calcium 10 MG TAB PO SCH (21:22)
[2017-12-11] MEDS: guaiFENesin ER 600 MG TAB PO SCH ×3 (06:15→21:04)
[2017-12-11] MEDS: TROSPIUM 20 MG TABLET PO SCH ×2 (09:24→21:04)
[2017-12-11] MEDS: Enoxaparin Sodium 30 MG/0.3 ML SYRINGE SC SCH (09:24)
[2017-12-11] MEDS: Aspirin 81 mg Enteric Coated Tablet PO SCH (09:24)
[2017-12-11] MEDS: Calcium Carbonate + Vit D 1 TAB PO SCH (09:24)
[2017-12-11] MEDS: Lantiseptic Ointment 130 GM JAR TOP SCH ×2 (09:25→21:07)
[2017-12-11] MEDS: Atorvastatin Calcium 10 MG TAB PO SCH (21:04)
[2017-12-12] MEDS: guaiFENesin ER 600 MG TAB PO SCH ×3 (04:26→21:01)
[2017-12-12] MEDS: Calcium Carbonate + Vit D 1 TAB PO SCH (08:42)
[2017-12-12] MEDS: Aspirin 81 mg Enteric Coated Tablet PO SCH (08:42)
[2017-12-12] MEDS: Lantiseptic Ointment 130 GM JAR TOP SCH ×2 (08:43→21:01)
[2017-12-12] MEDS: Enoxaparin Sodium 30 MG/0.3 ML SYRINGE SC SCH (08:43)
[2017-12-12] MEDS: TROSPIUM 20 MG TABLET PO SCH ×2 (08:43→21:01)
--- NOTE | 2017-12-12 11:09 | PRG ---
DATE OF SERVICE: 12/12/2017 SUBJECTIVE: The patient said that she is doing better. Physical therapist said she is walking now u p to 200 feet with her rolling walker. She is transferring easily with just standby assistance. The patient said her left shoulder is much better, the heat has helped her. OBJECTIVE: The patient is sitting up in a bedside chair. She looks very comfortable and in no distr ess. Her temperature is 98.1, pulse 77, respirations 16, O2 sat 96%, blood pressure 186/67. Her evelyn gs are clear. Heart, regular rate. Extremities; no edema. ASSESSMENT: 1. Closed, nondisplaced, nondepressed lateral tibial plateau fracture of the right leg. A. Secondary to a fall on 11/06/2017. B. Leaving the patient nonambulatory. C. Unable to take care of herself and beyond the capability of the family to manage her. D. Improved. Walking now up to 200 feet and transferring with just standby assistance as of 10/2018. 2. Severe generalized weakness. A. Requires assistance with all her ADLs. B. Now patient is nonweightbearing on the right leg due to fracture of the tibial plateau. C. Excellent improvement as of 12/12/2017. 3. Coronary artery disease. A. Status post coronary artery bypass in 1993. B. Asymptomatic. 4. Hypertension. 5. Hyperlipidemia. 6. Severe gastroesophageal reflux. Complicated by distal esophageal stricture. A. Status post food bolus impaction requiring EGD, removal of impaction and dilation on 03/10/20 17. B. Status post esophagogastroduodenoscopy for a total impacted dilated esophagus and history of esophageal stricture, but none seen on this evaluation. C. Last EGD showed no impaction and esophagus open. D. Continuing to tolerate a soft diet as of 12/12/2017. 7. Frailty. 8. Osteoporosis. 9. Episode of nausea, vomiting, and diarrhea on 11/10/2017. A. Resolved as of 11/10/2017. 10. Asthmatic bronchitis. A. Onset 11/22/2017. B. Resolved as of 11/30/2017. 11. Left shoulder pain. A. History of rotator cuff repair. B. X-ray showed no fracture, showed evidence of previous rotator cuff repair and significant art hritis. C. Etiology of the pain secondary to the arthritis with acute exacerbation from the increased ut ilization. D. Improved as of 12/12/2017. PLAN: Continue physical therapy. The patient's family is making arrangements for her to be discharg ed in the next few days. Tentatively we will plan discharge on Friday12/17/2017. This will give family time to make all arrangements and added help in the home.
[2017-12-12] MEDS: Atorvastatin Calcium 10 MG TAB PO SCH (21:01)
[2017-12-13] MEDS: guaiFENesin ER 600 MG TAB PO SCH ×3 (05:33→20:42)
[2017-12-13] MEDS: TROSPIUM 20 MG TABLET PO SCH ×2 (08:33→20:42)
[2017-12-13] MEDS: Calcium Carbonate + Vit D 1 TAB PO SCH (08:34)
[2017-12-13] MEDS: Aspirin 81 mg Enteric Coated Tablet PO SCH (08:34)
[2017-12-13] MEDS: Enoxaparin Sodium 30 MG/0.3 ML SYRINGE SC SCH (08:34)
[2017-12-13] MEDS: Lantiseptic Ointment 130 GM JAR TOP SCH ×2 (08:35→20:43)
[2017-12-13] MEDS: Atorvastatin Calcium 10 MG TAB PO SCH (20:42)
[2017-12-14] MEDS: guaiFENesin ER 600 MG TAB PO SCH ×3 (05:02→20:21)
[2017-12-14] MEDS: TROSPIUM 20 MG TABLET PO SCH ×2 (09:18→20:21)
[2017-12-14] MEDS: Enoxaparin Sodium 30 MG/0.3 ML SYRINGE SC SCH (09:18)
[2017-12-14] MEDS: Aspirin 81 mg Enteric Coated Tablet PO SCH (09:19)
[2017-12-14] MEDS: Lantiseptic Ointment 130 GM JAR TOP SCH ×2 (09:19→20:21)
[2017-12-14] MEDS: Calcium Carbonate + Vit D 1 TAB PO SCH (09:19)
--- NOTE | 2017-12-14 15:31 | PRG ---
DATE OF SERVICE: 12/14/2017 SUBJECTIVE: The patient said she is doing better. She is stronger. The family is working to try to get help in the home. They have not yet found enough coverage. OBJECTIVE: GENERAL: The patient is sitting up on the side of the bed eating breakfast. She is alert, appears v jose comfortable and in no distress. VITAL SIGNS: Her temperature is 97.8, pulse 78, respirations 20, O2 saturation 94% on room air and b lood pressure 144/68. LUNGS: Clear. HEART: Regular rate. EXTREMITIES: No edema. ASSESSMENT: 1. Closed, nondisplaced, nondepressed lateral tibial plateau fracture of the right leg. A. Secondary to a fall on 11/06/2017. B. Leaving the patient nonambulatory. C. Unable to take care of herself and beyond the capability of the family to manage her. D. Improved. Walking now up to 200 feet and transferring with just standby assistance as of . 2. Severe generalized weakness. A. Requires assistance with all her ADLs. B. Now patient is nonweightbearing on the right leg due to fracture of the tibial plateau. C. Excellent improvement as of 12/14/2017. 3. Coronary artery disease. A. Status post coronary artery bypass in 1993. B. Asymptomatic. 4. Hypertension. 5. Hyperlipidemia. 6. Severe gastroesophageal reflux. Complicated by distal esophageal stricture. A. Status post food bolus impaction requiring EGD, removal of impaction and dilation on 03/10/20 17. B. Status post esophagogastroduodenoscopy for a total impacted dilated esophagus and history of esophageal stricture, but none seen on this evaluation. C. Last EGD showed no impaction and esophagus open. D. Continuing to tolerate a soft diet as of 12/12/2017. 7. Frailty. 8. Osteoporosis. 9. Episode of nausea, vomiting, and diarrhea on 11/10/2017. A. Resolved as of 11/10/2017. 10. Asthmatic bronchitis. A. Onset 11/22/2017. B. Resolved as of 11/30/2017. 11. Left shoulder pain. A. History of rotator cuff repair. B. X-ray showed no fracture, showed evidence of previous rotator cuff repair and significant art hritis. C. Etiology of the pain secondary to the arthritis with acute exacerbation from the increased ut ilization. D. Improved as of 12/14/2017. PLAN: Continue physical therapy. Family still working to try to get adequate help in the home.
[2017-12-14] MEDS: Atorvastatin Calcium 10 MG TAB PO SCH (20:21)
[2017-12-15] MEDS: guaiFENesin ER 600 MG TAB PO SCH ×3 (04:57→20:56)
[2017-12-15] MEDS: Aspirin 81 mg Enteric Coated Tablet PO SCH (08:44)
[2017-12-15] MEDS: Calcium Carbonate + Vit D 1 TAB PO SCH (08:44)
[2017-12-15] MEDS: Lantiseptic Ointment 130 GM JAR TOP SCH ×2 (08:44→20:58)
[2017-12-15] MEDS: Enoxaparin Sodium 30 MG/0.3 ML SYRINGE SC SCH (08:44)
[2017-12-15] MEDS: TROSPIUM 20 MG TABLET PO SCH ×2 (08:45→20:56)
[2017-12-15] MEDS: Atorvastatin Calcium 10 MG TAB PO SCH (20:55)
[2017-12-16] MEDS: guaiFENesin ER 600 MG TAB PO SCH ×3 (05:37→20:59)
[2017-12-16] MEDS: Enoxaparin Sodium 30 MG/0.3 ML SYRINGE SC SCH (09:14)
[2017-12-16] MEDS: TROSPIUM 20 MG TABLET PO SCH ×2 (09:14→20:59)
[2017-12-16] MEDS: Calcium Carbonate + Vit D 1 TAB PO SCH (09:14)
[2017-12-16] MEDS: Aspirin 81 mg Enteric Coated Tablet PO SCH (09:15)
[2017-12-16] MEDS: Lantiseptic Ointment 130 GM JAR TOP SCH ×2 (09:15→21:00)
--- NOTE | 2017-12-16 12:29 | PRG ---
DATE OF SERVICE: 12/16/2017 SUBJECTIVE: The patient states she is doing good. She is doing better with her walking, using the w alker. Her leg is feeling better. OBJECTIVE: GENERAL: The patient is sitting up in a chair. She is alert, talkative, and appears very comfortabl e. VITAL SIGNS: Her temperature is 97.3, pulse 72, respirations 18, blood pressure 165/73, earlier 130/ 59. LUNGS: Clear. HEART: Regular rate. LOWER EXTREMITIES: No edema. ASSESSMENT: 1. Closed, nondisplaced, nondepressed lateral tibial plateau fracture of the right leg. A. Secondary to a fall on 11/06/2017. B. Leaving the patient nonambulatory. C. Unable to take care of herself and beyond the capability of the family to manage her. D. Improved. Walking now up to 200 feet and transferring with just standby assistance as of . 2. Severe generalized weakness. A. Requires assistance with all her ADLs. B. Now patient is nonweightbearing on the right leg due to fracture of the tibial plateau. C. Excellent improvement as of 12/16/2017. 3. Coronary artery disease. A. Status post coronary artery bypass in 1993. B. Asymptomatic. 4. Hypertension. 5. Hyperlipidemia. 6. Severe gastroesophageal reflux. Complicated by distal esophageal stricture. A. Status post food bolus impaction requiring EGD, removal of impaction and dilation on 03/10/20 17. B. Status post esophagogastroduodenoscopy for a total impacted dilated esophagus and history of esophageal stricture, but none seen on this evaluation. C. Last EGD showed no impaction and esophagus open. D. Continuing to tolerate a soft diet as of 12/16/2017. 7. Frailty. 8. Osteoporosis. 9. Episode of nausea, vomiting, and diarrhea on 11/10/2017. A. Resolved as of 11/10/2017. 10. Asthmatic bronchitis. A. Onset 11/22/2017. B. Resolved as of 11/30/2017. 11. Left shoulder pain. A. History of rotator cuff repair. B. X-ray showed no fracture, showed evidence of previous rotator cuff repair and significant art hritis. C. Etiology of the pain secondary to the arthritis with acute exacerbation from the increased ut ilization. D. Improved as of 12/16/2017. PLAN: The patient is doing well with her therapy. Her insurance has not approved her for additional days, to be arranged for discharge tomorrow on 12/17/2017, had been visiting with patient and family regarding her post-hospital care. The patient is doing better, but not strong enough to where she c an safely and independently take care of herself. Her invalid cannot take care of her. They do not have adequate assistance in the home. They have looked at [facility] and this lo oks like this is going to be a good fit for her. They think this will only be temporary plan to disc harge her to [facility] tomorrow, 12/17/2017.
[2017-12-16] MEDS: Atorvastatin Calcium 10 MG TAB PO SCH (20:58)
[2017-12-17] MEDS: guaiFENesin ER 600 MG TAB PO SCH (05:47)
[2017-12-17] MEDS: Aspirin 81 mg Enteric Coated Tablet PO SCH (09:02)
[2017-12-17] MEDS: TROSPIUM 20 MG TABLET PO SCH (09:02)
[2017-12-17] MEDS: Calcium Carbonate + Vit D 1 TAB PO SCH (09:02)
[2017-12-17] MEDS: Lantiseptic Ointment 130 GM JAR TOP SCH (09:11)
[2017-12-17] MEDS: Enoxaparin Sodium 30 MG/0.3 ML SYRINGE SC SCH (09:11)
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
[2017-12-17 14:13] VITALS: BP 172/72; TEMP 97.8
== END 2017-12-17 14:30 | DRG 561 ==
LOC: MADMS 11:12
PROVIDERS: ADMIT Family Medicine; ATTEND Family Medicine
DX: S82.144D Nondisplaced bicondylar fracture of right tibia, subsequent encounter for closed fracture with routine healing (principal); Z95.1 Presence of aortocoronary bypass graft; E78.5 Hyperlipidemia, unspecified; I10 Essential (primary) hypertension; I25.10 Atherosclerotic heart disease of native coronary artery without angina pectoris; K21.9 Gastro-esophageal reflux disease without esophagitis; M81.0 Age-related osteoporosis without current pathological fracture; R11.2 Nausea with vomiting, unspecified; R19.7 Diarrhea, unspecified; J45.909 Unspecified asthma, uncomplicated; M19.012 Primary osteoarthritis, left shoulder; Y92.012 Bathroom of single-family (private) house as the place of occurrence of the external cause; W18.1 Fall from or off toilet
CPT/HCPCS: 94640; G8978-GP-CK; G8978-GP-CL; G8979-GP-CJ; J1650; J7611; Q0162

== ENCOUNTER 2018-01-21 10:56 | Outpatient (CLI) | payer MEDICARE ==
--- NOTE | 2018-01-21 12:37 | RAD ---
FOUR VIEWS OF THE RIGHT KNEE: INDICATION: History of tibial plateau fracture. COMPARISON: Prior exam dated 11/06/17. FINDINGS: Since the comparison examination, there has been some interval healing of the lateral tibial plateau fracture consisting of some increased sclerosis within the metaphyseal region of the right proximal t ibia. There is slightly worsening depression of the articular surface of 1-2 mm when compared to the initial injury examination dated 11/06/17. Chondrocalcinosis and mild osteoarthritic change is prese nt. Postoperative change of the femur is stable. Surgical clips are seen within the soft tissues of the posteromedial right leg. IMPRESSION: Slight worsening of the depression involving the lateral tibial plateau fracture approximately 1-2 mm of articular surface depression now present. There is progressive healing of the lateral tibial kerline teau fracture when compared to the prior dated 11/06/17. POS: [facility]
== END 2018-01-21 10:57 | disposition home or self-care (01) ==
LOC: MADRAD 10:56
PROVIDERS: ATTEND Family Medicine
DX: S82.141D Displaced bicondylar fracture of right tibia, subsequent encounter for closed fracture with routine healing (principal)

== ENCOUNTER 2018-03-26 19:12 | Observation (INO) | payer MEDICARE ==
[2018-03-26] MEDS ORDERED: Morphine 10 MG/ML VIAL ONE (20:25)
[2018-03-26] MEDS ORDERED: Ketorolac Tromethamine 30 MG/ML VIAL ONE (20:25)
[2018-03-26] MEDS ORDERED: Ondansetron HCl/PF 4 MG/2 ML Vial ONE (20:25)
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
--- NOTE | 2018-03-26 21:30 | CT ---
CT CERVICAL SPINE WITHOUT CONTRAST: 03/26/18 COMPARISON: 03/25/17. HISTORY: Fall. Pain. TECHNIQUE: CT cervical spine is performed without contrast. Reformatted images are submitted for interpretation. FINDINGS: The visualized soft tissue neck structures are unremarkable. Redemonstration of a dilated esophagus w ith extensive ingested material. Upper mediastinum and lung apices are unremarkable. There is diffuse bone demineralization. Varying degrees of central canal stenosis and foraminal narro wing on the basis of degenerative change. Cervical spine vertebral body height is maintained. No frac ture. Lateral masses of C1 and C2 articulate appropriately. There is degenerative change involving th e lateral masses of C1 and C2 as well as the cervical spine facets. Intact odontoid process. On the s agittal reformatted images, there is evidence of spondylolisthesis similar to the previous examinatio n. Chronic changes involving the T2 vertebral body are noted. IMPRESSION: 1. Chronic changes. No definite acute cervical spine fracture. 2. Distended thoracic esophagus with ingested material. POS: [facility]
[2018-03-26] MEDS ORDERED: Enoxaparin Sodium 30 MG/0.3 ML SYRINGE ONE (21:36)
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
[2018-03-26 23:51] VITALS: BMI 16.5
[2018-03-27] MEDS ORDERED: Acetaminophen 325 MG TAB PO PRN (00:48)
[2018-03-27] MEDS ORDERED: Ondansetron ODT 4 MG TAB PO PRN (00:52)
[2018-03-27] MEDS ORDERED: Bisacodyl 5 MG TAB PO PRN (00:53)
[2018-03-27 05:33] LABS: #Lymphocytes 0.9 thou/uL (1.20-3.40); #Monocytes 0.4 thou/uL (0.11-0.59); #Neutrophils 7.6 thou/uL (1.40-6.50); %Basophils 0.5 % (0.0-1.0); %Eosinophils 0.3 % (0.0-10.0); %Lymphocytes 9.7 % (21.0-51.0); %Monocytes 4.9 % (0.0-10.0); %Neutrophils 84.6 % (42.0-75.0); Hemoglobin 11.3 g/dL (12.0-16.0); Mean Corpuscular HGB CONC 31.3 g/dL (32.0-36.0); Mean Corpuscular Hemoglobin 25.7 pg (27.0-31.0); Mean Corpuscular Volume 81.9 fl (81.0-99.0); Mean Platelet Volume 8.5 fL (7.4-10.4); Platelet Count 141 thou/uL (130-400); RBC Distribution Width 16.5 % (11.5-14.5); Red Blood Cell (RBC) Count 4.41 mill/uL (4.20-5.40); White Blood Cell (WBC) Count 8.9 thou/uL (4.8-10.8)
[2018-03-27 05:43] LABS: ALT (SGPT) 12 U/L (8-55); AST (SGOT) 16 U/L (5-34); Albumin 3.7 g/dL (3.4-4.8); Alkaline Phosphatase 122 U/L (40-150); Anion Gap 15 mmol/L (10-20); BUN (Urea Nitrogen) 28 mg/dL (9.8-20.1); Bilirubin, Total 0.5 mg/dL (0.2-1.2); Calc. Creatinine Clearance 28 mL/min (70-130); Calcium 9.5 mg/dL (7.8-10.44); Carbon Dioxide 27 mmol/L (23-31); Chloride 104 mmol/L (98-107); Estimated GFR-MDRD 62; Globulin 2.6 g/dL (2.4-3.5); Glucose 127 mg/dL (83-110); Protein, Total 6.3 g/dL (6.0-8.3); Sodium 141 mmol/L (136-145)
[2018-03-27] MEDS: Sodium Chloride 0.9% 1,000 ML IV SCH (10:38)
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
[2018-03-27] MEDS: Pantoprazole 40 MG VIAL IVP SCH (12:26)
[2018-03-27] MEDS: Morphine 4 MG/ML VIAL SLOW IVP PRN (12:27)
--- NOTE | 2018-03-27 12:33 | HP ---
HISTORY AND PHYSICAL/TRANSFER NOTE DATE OF ADMISSION: Admitted to observation on the late evening of 03/26/2018. CHIEF COMPLAINT: Fall at home and pain in right hip. PRESENT ILLNESS: The patient is an 87-year-old white female who lives at home with her and h as a caregiver to assist her with her ADLs. Ordinarily, she is able to ambulate short distance with the use of her walker. Patient has a history of hypertension, coronary artery disease for which she has undergone coronary artery bypass in 1993 and remains asymptomatic. She also has severe osteoporo sis and has had multiple compression fractures of the thoracolumbar spine. The patient has had fract ure of the right hip that has required open reduction internal fixation. The patient also has had a problem with severe gastroesophageal reflux complicated by distal esophageal stricture that has resul mark in food impactions with dilation of the esophagus. She has undergone repeat EGDs for the total i mpacted esophagus and on last scoping, there was no impaction and EG juncture was patent. On the evening of admission to observation, the patient was in home with her and caregiver an d she had gone into the kitchen and was reaching into the pantry and lost her balance and fell onto h er right hip and could not get up. She had severe pain and the ambulance was summoned and the patien t was taken to the emergency room. The patient was evaluated in the emergency room and she underwent CT scan of the brain, which showed no intracranial injury and no acute changes. CT scan of the cerv ical spine showed no acute fractures, but chronic changes. It was also noted to have a distended tho racic esophagus with ingested material. CT scan of the thoracic spine showed evidence of old melyssa denia fractures of T8, T11, T12 and L1, but no acute changes, suggested an acute compression fracture. She was also noted to have distended thoracic esophagus with the ingested material. The CT scan of the LS spine showed no acute fracture, but showed the compression fracture at T12 and L1. The patie nt was having significant pain still apparently at the back and the right hip and family said due to her pain, she would be beyond their capabilities of managing. The patient was started on IV fluids a nd was given initial injection of morphine 2 mg and then was admitted to observation. The patient wa s given Tylenol for her pain, which seemed to control things with her at bed rest through the night. The patient was seen on the morning of 03/27/2018 and she said she just sore in that right hip, parti cularly with any movement. She has not been able to get up out of bed. She said she has been comfor table as long she does not move. PAST HISTORY: The patient was last hospitalized at [facility] from 11/08/2017 to 12/17/2017 fo r closed nondisplaced nondepressed fracture of the lateral tibial plateau of her right leg. This was managed with a knee immobilizer and only partial weightbearing. Gradually, this is healed and she i s back to ambulate with full weightbearing with using a walker. She has coronary artery disease for which she has undergone a coronary artery bypass in 1993 and remains asymptomatic, hypertension, hype rlipidemia, severe gastroesophageal reflux complicated by distal esophageal stricture that resulted i n dilation of the esophagus and total impaction. Patient required EGD and balloon dilation of the di stal esophageal stricture on 03/11/2017. She was rehospitalized on 03/26/2017 for repeat EGD for a d ilated esophagus that was totally impacted with food. After she was completely evacuated of all impa ction, the esophagus was examined and no evidence of stricture was seen. She has been managed initia lly with liquid diet that progressed to a pureed diet and with Reglan that she uses only on occasion and she has really gone off the pureed diet. Her last EGD in 08/2017 showed an open esophagus. No e vidence of achalasia, no evidence on biopsy of achalasia. The patient has also a fracture from the f all on the spinous process of C4, C5 and C6 and interlaminar fracture C5 and C6 without any neurologi c impairment that was managed with a cervical collar, rigid for an 8-week period and has since healed . She has generalized osteoarthritis, osteoporosis with compression fractures of T8, T11, T12 and L1 . She has also had a fracture of the right hip requiring an intramedullary yolette and nail. She has hernandez d appendectomy, DEMI-BSO, bilateral rotator cuff repair. She also has some mild dementia, urge incont inence and vitamin D deficiency. PRESENT MEDICATIONS: Metoprolol succinate ER 25 mg daily, Nexium 40 mg daily, Trospium 20 mg b.i.d., atorvastatin 20 mg daily, vitamin D 5000 units daily, Caltrate D 600-200 daily, acetaminophen 325 mg 2 every 6 hours as needed, aspirin 81 mg daily, Natural Tears as needed, metoclopramide 5 mg per 5 m L b.i.d., the patient uses very irregularly and recently been stopped. ALLERGIES: No known allergies. REVIEW OF SYSTEMS: General: The patient said she has not had any fever. She has had no recent weig ht gain or loss. Eye, ear, nose and throat: No complaints. Pulmonary: No shortness of breath. Ca rdiovascular: No chest pain. Gastrointestinal: The patient said she really does not take much ana fication in her diet. She originally had been on a pureed diet, but she stopped this and is eating r egular foods and she does eat meat and breads, which she is not supposed to. The patient did have an episode of some regurgitation about a week ago. The patient does not think there has been any sam e to her bowel habits. Genitourinary: The patient has urge incontinence. ADLs: Patient able to feed herself. She ambulates short distances with the use of a walker. She re quires assistance with bathing and dressing. Neurologic/Psychiatric: The patient has some trouble w ith short term memory and at time gets a little mixed up. SOCIAL HISTORY: Patient is and lives at home with her and has a caregiver that looks in and daughter and son-in-law that look infrequently and assist with all of her instrumental ADLs. CODE STATUS: FULL CODE. PHYSICAL EXAMINATION: GENERAL: Shows an asthenic built, frail 87-year-old white female who is lying in bed. She is alert, recognizes me, and knew she was in the hospital, but really could not give me all the details of wha t has happened to her. She just said she had a fall and did not remember how she got to the hospital . She looks comfortable, but with any movement, has pain, particularly in her right hip and low back area. VITAL SIGNS: Shows a temperature of 97.7, pulse 82, respirations 20, O2 saturation 94% on room air, blood pressure 168/73. Her weight is 84 pounds. Her height is 60 inches. HEAD: Normocephalic and atraumatic. EYES: Pupils are equal, round, reactive. EARS: TMs are blocked by some cerumen on the right. Left TM, clear. NOSE: Normal. MOUTH AND THROAT: Normal. NECK: Carotids equal and strong, no bruits. Thyroid not enlarged. LUNGS: Clear. HEART: Regular rate. No murmurs. ABDOMEN: Soft with no organomegaly, nor areas of tenderness. NEUROLOGIC: Patient is alert, recognizes me, and knows she is in the hospital, does not remember com ing to the hospital or the circumstances surrounding her recent fall. She has decreased use of the r ight leg due to the pain and the other extremities, she has good strength. MUSCULOSKELETAL: The patient has no tenderness on AP and lateral compression of the pelvic bone. Sh e is tender over the right hip laterally. With any movement of the hip or attempt to rotate, it crea sahara pain. There was no obvious deformity of the hip. There was no bruising around the hip. The pat ient has no point tenderness along the spine. I have x-rayed the right hip and the x-ray does not sh ow a fracture, but shows previous operative repair with an intramedullary yolette and a nail of the pelvi c area that could be seen on that right side shows no fracture. Per my review, chest x-ray in the AP view shows the lungs were clear. There is no effusion or infiltrates. Heart size was normal. I did not see any fractures of the ribs or the shoulder, there is evidence of previous rotator cuff repair on the left shoulder. IMPRESSION: 1. Fall, ground level, on the evening of 03/26/2018. A. Resulting in contusion to the right hip and low back. B. Leaving her with severe pain with movement and unable to manage her ADLs. C. No acute fracture seen of the right hip, nor the spine. 2. Severe esophageal reflux. A. Complicated by dilated esophagus with food impaction extending to approximately the T4 level. B. Status post esophageal impaction, requiring an esophagogastroduodenoscopy with removal of impacti on and dilation of the distal esophagus on 03/10/2017. C. Status post esophagogastroduodenoscopy for a total impacted dilated esophagus with history of eso phageal stricture on 03/26/2017. After evacuation, no stricture was seen. D. Last EGD on 08/2017 showed an open esophagus. No evidence of achalasia on biopsy. E. Previously been managed on a pureed diet, Reglan and PPI. Patient has not using the Reglan and h as resumed eating meats and breads. 3. Coronary artery disease. A. Status post coronary artery bypass in 1993. B. Asymptomatic. 4. Hypertension, controlled. 5. Hyperlipidemia. 6. Osteoporosis. A. History of compression fracture of T8, T11, T12 and L1. B. Recent exacerbation of chronic low back pain from fall. 7. Urge incontinence. 8. Generalized weakness. A. Gait abnormality stabilized with a walker. B. Fall risk. 9. Mild dementia. PLAN: Presently, the patient is being held n.p.o. due to the dilated impacted esophagus. We will ke ep the head of the bed elevated at least 30 degrees. I have spoken with Dr. Alexys Mustafa, gastroente rologist who is an associate of her ostrich farmer, Dr. Fabian Moise who was on vacation and he rec ommended that the patient be transferred to [facility] and admitted there where they can c onsult with the anticipation that she will probably have to undergo EGD and evacuation of the esophag us. Arrangements are being made for this transfer. Once the esophagus is cleared and she is stable , suspect that she will still be extremely weak and not be able to be managed at home. We will antic ipate that she will come back to [facility] once stable and procedure completed for continued c are and physical therapy in an effort to improve her functional capabilities such that where she may be able to return to her home.
[2018-03-27 12:46] VITALS: BP 193/89; TEMP 96.9
== END 2018-03-27 12:30 | disposition short-term general hospital (02) ==
LOC: MADERS 19:12 → UNDOADMIN 23:06 → MADMS 23:06
PROVIDERS: ADMIT Family Medicine; ATTEND Family Medicine
DX: M25.551 Pain in right hip (principal); S70.01XA Contusion of right hip, initial encounter; S30.0XXA Contusion of lower back and pelvis, initial encounter; I10 Essential (primary) hypertension; I25.10 Atherosclerotic heart disease of native coronary artery without angina pectoris; M81.0 Age-related osteoporosis without current pathological fracture; K21.9 Gastro-esophageal reflux disease without esophagitis; K22.2 Esophageal obstruction; E78.5 Hyperlipidemia, unspecified; M54.5 Low back pain; G89.29 Other chronic pain; N39.41 Urge incontinence; R26.9 Unspecified abnormalities of gait and mobility; F03.90 Unspecified dementia, unspecified severity, without behavioral disturbance, psychotic disturbance, mood disturbance, and anxiety; W19.XXXA Unspecified fall, initial encounter; Y92.010 Kitchen of single-family (private) house as the place of occurrence of the external cause; Z95.1 Presence of aortocoronary bypass graft; Z98.890 Other specified postprocedural states
CPT/HCPCS: 36415; 70450; 71045; 72125; 72128; 72131; 80053; 85025; 96361; 96372; 96374; 96375; C9113; G0378; J1650; J1885; J2270; J2405; J7050; J7620

== ENCOUNTER 2018-03-31 17:57 | Inpatient (IN) | payer MEDICARE ==
[2018-03-31] MEDS ORDERED: Artificial Tear Sol 15 ML BOT EA EYE PRN (19:44)
[2018-03-31] MEDS: Acetaminophen 325 MG TAB PO PRN (20:15)
[2018-03-31] MEDS ORDERED: Metoclopramide HCl 10 MG/2 ML VIAL IVP SCH (21:00)
[2018-03-31] MEDS ORDERED: Metoclopramide HCl 10 MG TAB PO SCH (22:15)
[2018-04-01] MEDS: Acetaminophen 325 MG TAB PO PRN ×2 (03:38→17:03)
[2018-04-01] MEDS ORDERED: Nitroglycerin 0.4 MG TAB (25 Tab Bottle) SL PRN (08:29)
[2018-04-01] MEDS ORDERED: Artificial Tear Sol 15 ML BOT EA EYE PRN (08:29)
[2018-04-01] MEDS ORDERED: Mag-Al Plus 1200 MG/1200 MG/120 MG/30 ML UDCUP PO PRN (08:29)
[2018-04-01] MEDS: Aspirin 81 mg Enteric Coated Tablet PO SCH (08:38)
[2018-04-01] MEDS: Metoclopramide HCl 10 MG TAB PO SCH ×4 (08:39→21:24)
[2018-04-01] MEDS ORDERED: FLUCONAZOLE 200 MG PO SCH (09:00)
[2018-04-01] MEDS ORDERED: METOCLOPRAMIDE HCL 5 MG PO SCH (09:00)
[2018-04-01] MEDS ORDERED: Metoclopramide 10 MG/10 ML UDCUP PO SCH (09:00)
[2018-04-01] MEDS: Fluconazole 100 MG TAB PO SCH (09:17)
--- NOTE | 2018-04-01 10:56 | HP ---
Admitted to [facility] to extended care on the evening of 03/31/2018. CHIEF COMPLAINT: Weakness. PRESENT ILLNESS: The patient is an 87-year-old white female who lives at home with her and h as a caregiver who assists with her ADLs: Ordinarily, she is able to ambulate short distances with t he use of a walker. She has a caregiver that assists her some with dressing and bathing and has fami ly that assists to manage all her instrumental ADLs. She has a history of hypertension, coronary art jose disease for which she has undergone a coronary artery bypass in 1993 and remains asymptomatic. S he has severe osteoporosis and has had multiple compression fractures of the thoracolumbar spine. Angeline patiño has had a fracture of the right hip requiring open reduction internal fixation. She has a problem with severe gastroesophageal reflux for which she has had to undergo the ED with disimpaction of her esophagus on 2 occasions. The patient was admitted to the hospital on 03/26/2018 after a fall from h dheeraj. She was getting something out of her pantry and fell onto the tile floor onto her right hip. T here was no loss of consciousness, no injury to her head, but she was not able to get up and was havi ng a lot of severe pain in her back and hip. The patient was brought to the emergency room and evalu ated. She underwent CT scan of the head and brain which showed no fracture. She had CT scans of the C-spine, thoracic and lumbar spine which showed old compression fractures of T8, T11, T12 and L1. S he was admitted for control of pain and due to weakness from the fall, leaving her unable to get up and ambulate. The patient was seen by me early on the morning of 03/27/2018 and x-ray of the right h ip was done and showed no fracture of the hip, but showed her previous hip repair that was done with an intramedullary yolette and nail for an intertrochanteric fracture. There were no fractures seen. No fracture of the pelvis. Chest x-ray was clear. The CT scans were reviewed and the radiologist showe d that she had significant retention of food and liquids in her esophagus up to the T4 level. The flaquita quintanilla was transferred to [facility] that same day 03/27/2018 due to the impa ction of her esophagus and dilation of the esophagus. She had not sustained any fractures from her f all, but was having significant pain secondary to probably the contusion to the hip. The patient was transferred to [facility] on the morning of 03/27/2018. The patient was hospitalized at [facility] from 03/27/2018 until 03/31/2018. She was seen by carpenter packing, Dr. Alexys Mustafa and she underwent EGD on the afternoon of 03/27/2018. She w as found to have significant amount of both liquid and solid food material within the distal esophagu s. This was all suctioned and pushed through to the stomach clearing the esophagus. There was signi ficant whitish debris on the esophagus suggestive of a possible candidiasis. During the EGD after th e food was cleared she was noted to have reflux of significant amount of food back into the esophagus indicative of her severe gastroesophageal reflux disease and also from her delayed gastric emptying. The patient had been n.p.o. for at least 12 hours at the time of the EGD. The patient did not have any evidence of stenosis or stricture at the GE juncture. No evidence of achalasia. The likely rima son for the food in the distal esophagus is due to impairment and dysfunction of the esophageal motil ity and also the delayed gastric emptying with significant gastric reflux. It was recommended that t he probable candidiasis be treated with Diflucan for 21 days and then he recommended that initially s he was placed on clear liquids and then advanced to a mechanical soft. All meals need to be given in an upright position and she needs to remain upright during the day and kept on a PPI and Reglan for the delayed gastric emptying. Biopsy of the esophagus showed marked erosive esophagitis, no Guzman' s esophagus was seen. There was no viral cytopathic changes and negative for fungal forms. The rachael ent still had pain in the right hip from the fall and during the hospitalization, she received some h ydrocodone and morphine. This had left her with some little confusion which improved after she was m [facility] distant from the last dosage. She was transferred to [facility] on the late afternoon of 03/31/2018. She had an uneventful night. The patient was seen early on the morning of 04/01/2018. She said she did not rest too well, but was feeling better this morning. She was glad to be back in [place] and did recognize me. PAST HISTORY: Hospitalized at [facility] from 03/27/2018 until 03/31/2018 for food impact ion of the mid to distal esophagus with dilation of the esophagus for which she underwent an EGD on 03/27/2018. In fact, no stricture was found. The etiology of the food impaction felt to be secondary to impaired or dysfunctional mobility of the esophagus coupled with the delayed gastric emptying and significant gastroesophageal reflux. She also had just a continual pain in the right hip from the c ontusion. Hospitalized at [facility] to observation 03/26/2018 to 03/27/2018 for a fall with c ontusion. No fracture seen, but found to have the impacted esophagus. Hospitalized from 11/08/2017 to 12/17/2017 for closed nondisplaced fracture of the distal tibial plateau of the right leg, managed with a knee immobilizer and only partial weightbearing. Gradually this healed and she was able to a mbulate with full weightbearing using a walker. Coronary artery disease for which she underwent a co ronary artery bypass in 1993 and remains asymptomatic. Hypertension, hyperlipidemia, severe gastroes ophageal reflux, complicated. She has required EGD and balloon dilation of the distal esophagus on 03/11/2017, rehospitalized on 03/26/2017 for repeat EGD for dilated esophagus that was totally impacte d with food. This completely evacuated, the esophagus examined and no stricture was seen. This was managed with proton-pump inhibitors and antireflux measures and initially clear liquid diet and progr essed to a pureed diet. EGD in 08/2017 showed an open esophagus. No evidence of achalasia and no ev idence of achalasia on biopsy. Food was free at that time of any impaction. The patient has had a f racture from a fall of the spinous process of C4, C5, C6, and an interlaminar fracture C5 and C6 with out any neurologic impairment. This was managed with a rigid cervical collar for an 8 week period an d has since healed. She has generalized osteoarthritis, osteoporosis with a compression fracture of T8, T11, T12 and L1. She has had a fracture of the right hip requiring intramedullary yolette and nail. She has had an appendectomy, DEMI/BSO, and bilateral rotator cuff repair. She has some mild dementia and urge incontinence and vitamin D deficiency. PRESENT MEDICINES: Metoprolol succinate ER 25 mg daily, Nexium 40 mg daily, Trospium 20 mg b.i.d., a torvastatin 20 mg daily, vitamin D 5000 units daily, Caltrate D 600 mg/200 mg daily, acetaminophen 32 5 mg 2 every 6 hours as needed, aspirin 81 mg daily, Natural Tears a drop in each eye twice a day as needed, metoclopramide 5 mg per 5 mL p.o. b.i.d. Diflucan 200 mg daily for 2 weeks. ALLERGIES: No known allergies. REVIEW OF SYSTEMS: The patient has not had any fever. HEAD AND NECK: No complaints. PULMONARY: No shortness of breath. CARDIOVASCULAR: No chest pain. GASTROINTESTINAL: No nausea or vomiting, no diarrhea. : The patient has episodes of urinary incontinence. NEURO/PSYCHIATRIC: The patient has some short term memory difficulty, at times she gets a little con fused. During her hospitalization at [facility] she was more confused, felt to be seconda ry to the recent increase in pain medication. MUSCULOSKELETAL: The patient said she still has some pain in the right hip. The heat to the hip fel t good. HABITS: Alcohol none. Tobacco none. SOCIAL HISTORY: The patient lives at home with her . She has a caregiver there that assist a nd also family that looks in on her and assist with her instrumental ADLs and IADLs as needed. CODE STATUS: Full code. PHYSICAL EXAMINATION: GENERAL: Shows an asthenic built 87-year-old white female who is lying in bed. She is awake and rec ognizes me. She appears comfortable in no distress. VITAL SIGNS: Shows a temperature 97.4, pulse 85, respirations 18, O2 sat 93% on room air, blood pres sure 133/84. Her weight is 85 pounds. HEAD: Normocephalic and atraumatic. EARS: Right ear is blocked by cerumen. Left TM clear. EYES: Pupils are equal, round, and reactive. Nonicteric. NOSE: Normal. MOUTH AND THROAT: Normal. NECK: Carotids are equal and strong, no bruits. Thyroid not enlarged. LUNGS: Clear. HEART: Regular rate. No murmurs. ABDOMEN: Soft, no organomegaly, nor areas of tenderness. Pelvic area is nontender to AP and lateral compression. EXTREMITIES: The patient has a little tenderness to palpation over the lateral right hip. The patie nt has fair motion in the hip on the right. Lower extremities, no edema. NEUROLOGIC: The patient is awake, alert, knows she is in [place], correctly knows my name and k nows she has recently been in the hospital in [place]. She has some generalized weakness, but a little bit more on the right leg due to the pain in that hip. Otherwise, no focal weakness. IMPRESSION: 1. Generalized weakness following a fall on 03/26/2018. A. Has left her nonambulatory with marked decline in her functional capability. B. Requiring assistance with all her ADLs. C. Fall occurred from ground level and has resulted in contusion to the right hip and low back with no evidence of fracture. 2. Severe gastroesophageal reflux. A. Complicated by severe erosive esophagitis. B. Complicated by food impactions in the esophagus repeatedly secondary to impaired or dysfunctional esophageal motility coupled with delayed gastric emptying and significant acid reflux. C. Most recent mid and distal esophageal impaction with food and liquid requiring EGD on 03/27/2018 showing no signs of stenosis, but showed severe esophageal reflux and esophagitis and possible candid iasis of the esophagus. 3. Coronary artery disease. A. Status post coronary artery bypass in 1993. B. Asymptomatic. 4. Hypertension. 5. Hyperlipidemia. 6. Osteoporosis. A. History of compression fracture of T8, T11, T12 and L1. B. Recent exacerbation of low back pain from a fall on 03/27/2018. 7. Urge incontinence. 8. Mild dementia. PLAN: The patient has been admitted to [facility] due to her severe weakness, deconditioning a nd marked decline in her functional capability. Presently she is requiring assistance with all her A DLs. Physical Therapy and OT will work with her to try to increase her functional capability. For h er severe reflux disease the patient will take her meals sitting up and try to remain up throughout t he day sitting. She will be on a mechanical soft diet. She will be left on a proton pump inhibitor and also on metoclopramide for the delayed gastric emptying. We will place patient on sequential com pression devices and EBONI hose. CODE STATUS: Full code. See orders.
[2018-04-02] MEDS: Acetaminophen 325 MG TAB PO PRN ×4 (03:26→20:27)
[2018-04-02 05:45] LABS: Hemoglobin 11.3 g/dL (12.0-16.0); Mean Corpuscular HGB CONC 32.3 g/dL (32.0-36.0); Mean Corpuscular Hemoglobin 26.1 pg (27.0-31.0); Mean Corpuscular Volume 80.8 fl (81.0-99.0); Mean Platelet Volume 8.2 fL (7.4-10.4); Platelet Count 143 thou/uL (130-400); RBC Distribution Width 16.3 % (11.5-14.5); Red Blood Cell (RBC) Count 4.32 mill/uL (4.20-5.40)
[2018-04-02 05:46] LABS: Band 10 % (5-11); Eosinophils 1 % (0-10); Lymphocytes 8 % (21-51); MDiff Complete? YES; Monocytes 5 % (0-10); Neutrophil 76 % (42-75); Reactive Lymphocytes 0 % (0-10)
[2018-04-02 05:47] LABS: Blast 3 % (0-0)
[2018-04-02 05:49] LABS: AST (SGOT) 21 U/L (5-34); Albumin 3.2 g/dL (3.4-4.8); Alkaline Phosphatase 107 U/L (40-150); Anion Gap 13 mmol/L (10-20); BUN (Urea Nitrogen) 20 mg/dL (9.8-20.1); Bilirubin, Total 0.3 mg/dL (0.2-1.2); Calc. Creatinine Clearance 37 mL/min (70-130); Calcium 8.8 mg/dL (7.8-10.44); Carbon Dioxide 24 mmol/L (23-31); Chloride 107 mmol/L (98-107); Estimated GFR-MDRD 85; Globulin 2.7 g/dL (2.4-3.5); Glucose 112 mg/dL (83-110); Potassium 3.2 mmol/L (3.5-5.1); Protein, Total 5.9 g/dL (6.0-8.3); Sodium 141 mmol/L (136-145)
[2018-04-02 06:16] LABS: ALT (SGPT) 16 U/L (8-55)
[2018-04-02] MEDS: Fluconazole 100 MG TAB PO SCH (08:18)
[2018-04-02] MEDS: Metoclopramide HCl 10 MG TAB PO SCH ×2 (08:18→20:28)
[2018-04-02] MEDS: Aspirin 81 mg Enteric Coated Tablet PO SCH (08:18)
--- NOTE | 2018-04-02 09:22 | PRG ---
DATE OF SERVICE: 04/02/2018 SUBJECTIVE: The patient said she rested pretty well last night. The patient does not want the Ensur e Enlive. At home she drinks Boost with ice cream which will be ordered for her. The patient is not wanting the chopped meats, but with her particular issues then she will need this. The patient tole rating sitting up in the chair. Physical therapy is working with her. OBJECTIVE: The patient is lying in bed, alert, appears comfortable in no distress. Her vital signs show a temperature of 97.4, pulse 89, respirations 18, O2 sat 95% on room air, blood pressure 168/91 , earlier 144/65. Lungs were clear. Heart, regular rate. ASSESSMENT: 1. Generalized weakness following a fall on 03/26/2018. A. Has left her nonambulatory with marked decline in her functional capability. B. Requiring assistance with all her ADLs. C. Fall occurred from ground level and has resulted in contusion to the right hip and low back with no evidence of fracture. D. Improved where she is tolerating sitting up in a chair and standing with assistance as of 018. 2. Severe gastroesophageal reflux. A. Complicated by severe erosive esophagitis. B. Complicated by food impactions in the esophagus repeatedly secondary to impaired or dysfunctional esophageal motility coupled with delayed gastric emptying and significant acid reflux. C. Most recent mid and distal esophageal impaction with food and liquid requiring EGD on 03/27/2018 showing no signs of stenosis, but showed severe esophageal reflux and esophagitis and possible candid iasis of the esophagus. 3. Coronary artery disease. A. Status post coronary artery bypass in 1993. B. Asymptomatic. 4. Hypertension. 5. Hyperlipidemia. 6. Osteoporosis. A. History of compression fracture of T8, T11, T12 and L1. B. Recent exacerbation of low back pain from a fall on 03/27/2018. 7. Urge incontinence. 8. Mild dementia. PLAN: Continue physical therapy. Continue dietary changes with a mechanical soft diet, sitting upri ght, small bites and staying upright for at least a couple of hours after any meal. We will stop the Ensure Enlive and try her on Boost with ice cream twice a day.
[2018-04-03] MEDS: Acetaminophen 325 MG TAB PO PRN ×4 (04:28→22:20)
[2018-04-03] MEDS: Aspirin 81 mg Enteric Coated Tablet PO SCH (08:14)
[2018-04-03] MEDS: Fluconazole 100 MG TAB PO SCH (08:14)
[2018-04-03] MEDS: Metoclopramide HCl 10 MG TAB PO SCH ×2 (08:15→21:01)
--- NOTE | 2018-04-03 15:53 | PRG ---
DATE OF SERVICE: 04/03/2018. SUBJECTIVE: The patient said she does not feel really well this morning. She said she just sore in her hips. The patient just ate a little bit of breakfast. Physical therapy is working with the rachael ent and she is requiring moderate to maximum assistance with transfer. Yesterday, she was able to wa lk up to 10 feet, today only 4 feet. OBJECTIVE: GENERAL: The patient is sitting up in a chair, is in no acute distress. VITAL SIGNS: Shows a temperature of 97.8, pulse 96, respirations 18, O2 sat 96% on room air. Blood pressure was 177/74; after taking her medications last night 134/66. LUNGS: Clear. HEART: Regular rate. EXTREMITIES: No edema. ASSESSMENT: 1. Generalized weakness following a fall on 03/26/2018. A. Has left her nonambulatory with marked decline in her functional capability. B. Requiring assistance with all her ADLs. C. Fall occurred from ground level and has resulted in contusion to the right hip and low back with no evidence of fracture. 1. Still has soreness in the hips that has been managed with Tylenol and ice or heat packs and P T as of 04/03/2018. D. Improved. Tolerating, sitting up in a chair and walking between 4 and 10 feet with walker and mo derate assistance as of 04/03/2018. 2. Severe gastroesophageal reflux. A. Complicated by severe erosive esophagitis. B. Complicated by food impactions in the esophagus repeatedly secondary to impaired or dysfunctional esophageal motility coupled with delayed gastric emptying and significant acid reflux. C. Most recent mid and distal esophageal impaction with food and liquid requiring EGD on 03/27/2018 showing no signs of stenosis, but showed severe esophageal reflux and esophagitis and possible candid iasis of the esophagus. 3. Coronary artery disease. A. Status post coronary artery bypass in 1993. B. Asymptomatic. 4. Hypertension. 5. Hyperlipidemia. 6. Osteoporosis. A. History of compression fracture of T8, T11, T12 and L1. B. Recent exacerbation of low back pain from a fall on 03/27/2018. 7. Urge incontinence. 8. Mild dementia. PLAN: Continue present care. Continue physical therapy.
[2018-04-04] MEDS: Acetaminophen 325 MG TAB PO PRN ×3 (06:16→21:27)
[2018-04-04] MEDS: Aspirin 81 mg Enteric Coated Tablet PO SCH (08:37)
[2018-04-04] MEDS: Fluconazole 100 MG TAB PO SCH (08:38)
[2018-04-04] MEDS: Metoclopramide HCl 10 MG TAB PO SCH ×2 (08:38→20:16)
[2018-04-05] MEDS: Acetaminophen 325 MG TAB PO PRN (05:53)
[2018-04-05] MEDS: Metoclopramide HCl 10 MG TAB PO SCH ×2 (08:32→20:13)
[2018-04-05] MEDS: Fluconazole 100 MG TAB PO SCH (08:32)
[2018-04-05] MEDS: Aspirin 81 mg Enteric Coated Tablet PO SCH (08:32)
[2018-04-05] MEDS: traMADol HCl 50 MG TAB PO PRN ×2 (12:05→22:08)
[2018-04-06] MEDS: traMADol HCl 50 MG TAB PO PRN ×2 (05:55→17:15)
[2018-04-06] MEDS: Fluconazole 100 MG TAB PO SCH (08:29)
[2018-04-06] MEDS: Aspirin 81 mg Enteric Coated Tablet PO SCH (08:29)
[2018-04-06] MEDS: Metoclopramide HCl 10 MG TAB PO SCH ×2 (08:30→20:04)
--- NOTE | 2018-04-06 10:55 | PRG ---
DATE OF SERVICE: 04/06/2018 SUBJECTIVE: The patient said she is doing better. The patient had some increased pain in the area o f her hip and back. The Tylenol would not manage. She was given tramadol 50 mg to use every 8 hours if needed and she said this has really helped. This morning she is feeling good. She said she is h aving no trouble with her breathing. Her pain is better controlled. She is not having any trouble s wallowing or with her eating. OBJECTIVE: The patient looks comfortable. She appears in no distress. Vital signs show a temperatu re 97.7, pulse 81, respirations 18, O2 sat 94% on room air, blood pressure 159/67. Lungs are clear. Heart, regular rate. Extremities, no edema. ASSESSMENT: 1. Generalized weakness following a fall on 03/26/2018. A. Has left her nonambulatory with marked decline in her functional capability. B. Requiring assistance with all her ADLs. C. Fall occurred from ground level and has resulted in contusion to the right hip and low back with no evidence of fracture. 1. Pain in the hip better controlled using Tylenol and tramadol if needed as of 04/06/2018. D. Improved. Tolerating, sitting up in a chair and walking between 4 and 10 feet with walker and mo derate assistance as of 04/06/2018. 2. Severe gastroesophageal reflux. A. Complicated by severe erosive esophagitis. B. Complicated by food impactions in the esophagus repeatedly secondary to impaired or dysfunctional esophageal motility coupled with delayed gastric emptying and significant acid reflux. C. Most recent mid and distal esophageal impaction with food and liquid requiring EGD on 03/27/2018 showing no signs of stenosis, but showed severe esophageal reflux and esophagitis and possible candid iasis of the esophagus. D. Presently asymptomatic as of 04/06/2018. 3. Coronary artery disease. A. Status post coronary artery bypass in 1993. B. Asymptomatic. 4. Hypertension. 5. Hyperlipidemia. 6. Osteoporosis. A. History of compression fracture of T8, T11, T12 and L1. B. Recent exacerbation of low back pain from a fall on 03/27/2018. 1. Much improved as of 04/06/2018. 7. Urge incontinence. 8. Mild dementia. PLAN: Continue present care. Continue physical therapy.
[2018-04-06] MEDS: Acetaminophen 325 MG TAB PO PRN (12:54)
[2018-04-07] MEDS: Aspirin 81 mg Enteric Coated Tablet PO SCH (08:23)
[2018-04-07] MEDS: Metoclopramide HCl 10 MG TAB PO SCH ×2 (08:23→20:18)
[2018-04-07] MEDS: Fluconazole 100 MG TAB PO SCH (08:23)
[2018-04-07] MEDS: traMADol HCl 50 MG TAB PO PRN ×2 (08:24→17:29)
[2018-04-07] MEDS: Acetaminophen 325 MG TAB PO PRN (19:28)
[2018-04-08] MEDS: Acetaminophen 325 MG TAB PO PRN ×2 (01:44→09:44)
[2018-04-08] MEDS: traMADol HCl 50 MG TAB PO PRN ×2 (07:48→20:05)
[2018-04-08] MEDS: Aspirin 81 mg Enteric Coated Tablet PO SCH (09:43)
[2018-04-08] MEDS: Metoclopramide HCl 10 MG TAB PO SCH ×2 (09:43→20:05)
[2018-04-08] MEDS: Fluconazole 100 MG TAB PO SCH (09:43)
--- NOTE | 2018-04-08 10:09 | PRG ---
DATE OF SERVICE: 04/08/2018 SUBJECTIVE: The patient said she is a little sore this morning. She is not having trouble swallowin g, no trouble breathing. She is able to walk a little bit in her room with assistance and needs help with transfers. Physical Therapy said she was sore yesterday, did not want to work much. OBJECTIVE: The patient is sitting up in a chair. She is alert, appears in no acute distress. Temp 97.2, pulse 71, respirations 16, O2 sat 93% on room air, blood pressure 171/77. Lungs are clear. H eart, regular rate. Extremities, no edema. ASSESSMENT: 1. Generalized weakness following a fall on 03/26/2018. A. Has left her nonambulatory with marked decline in her functional capability. B. Requiring assistance with all her ADLs. C. Fall occurred from ground level and has resulted in contusion to the right hip and low back with no evidence of fracture. 1. Pain in the hip better controlled using Tylenol and tramadol if needed as of 04/06/2018. D. Improved, sitting up in a chair, needs assistance with transfer and able to walk short distances as of 04/08/2018. 2. Severe gastroesophageal reflux. A. Complicated by severe erosive esophagitis. B. Complicated by food impactions in the esophagus repeatedly secondary to impaired or dysfunctional esophageal motility coupled with delayed gastric emptying and significant acid reflux. C. Most recent mid and distal esophageal impaction with food and liquid requiring EGD on 03/27/2018 showing no signs of stenosis, but showed severe esophageal reflux and esophagitis and possible candid iasis of the esophagus. D. Presently asymptomatic as of 04/08/2018. 3. Coronary artery disease. A. Status post coronary artery bypass in 1993. B. Asymptomatic. 4. Hypertension. 5. Hyperlipidemia. 6. Osteoporosis. A. History of compression fracture of T8, T11, T12 and L1. B. Recent exacerbation of low back pain from a fall on 03/27/2018. 1. Much improved as of 04/06/2018. 7. Urge incontinence. 8. Mild dementia. PLAN: The patient has made a little progress. Still has some pain in her hip and back from the rece nt fall with no fractures. She is still very limited in her activities and still a high fall risk. Needs further physical therapy.
[2018-04-09] MEDS: Acetaminophen 325 MG TAB PO PRN ×2 (02:46→11:03)
[2018-04-09] MEDS: traMADol HCl 50 MG TAB PO PRN ×2 (08:06→17:16)
[2018-04-09] MEDS: Aspirin 81 mg Enteric Coated Tablet PO SCH (08:17)
[2018-04-09] MEDS: Fluconazole 100 MG TAB PO SCH (08:17)
[2018-04-09] MEDS: Metoclopramide HCl 10 MG TAB PO SCH ×2 (08:18→20:00)
[2018-04-10] MEDS: traMADol HCl 50 MG TAB PO PRN ×2 (07:25→15:27)
[2018-04-10] MEDS: Aspirin 81 mg Enteric Coated Tablet PO SCH (07:27)
[2018-04-10] MEDS: Metoclopramide HCl 10 MG TAB PO SCH ×2 (07:27→20:43)
[2018-04-10] MEDS: Fluconazole 100 MG TAB PO SCH (07:27)
--- NOTE | 2018-04-10 11:06 | PRG ---
DATE OF SERVICE: 04/10/2018 SUBJECTIVE: The patient said she feels better today. Her low back and right hip is better. She is working with physical therapy and is walking most of the time, at least up to 20 feet with a rolling walker and caregiver assist. She is still requiring maximum assist with any transfers. The patient said she is better, but this is certainly too weak to try to manage in the home. The patient said сергей patiño is not having any trouble eating. OBJECTIVE: GENERAL: The patient is sitting up in a chair and she looks very comfortable. VITAL SIGNS: Her temperature is 96.7, pulse 71, respirations 18, O2 sat 95%, blood pressure 127/65. LUNGS: Clear. HEART: Regular rate. EXTREMITIES: No edema. ASSESSMENT: 1. Generalized weakness following a fall on 03/26/2018. A. Has left her nonambulatory with marked decline in her functional capability. B. Requiring assistance with all her ADLs. C. Fall occurred from ground level and has resulted in contusion to the right hip and low back with no evidence of fracture. 1. Pain in the right hip, low back has improved. D. Improved sitting up in a chair without difficulty. Requires maximum assist with transfers. Walk ing 20-40 feet with assistance as of 04/10/2018. 2. Severe gastroesophageal reflux. A. Complicated by severe erosive esophagitis. B. Complicated by food impactions in the esophagus repeatedly secondary to impaired or dysfunctional esophageal motility coupled with delayed gastric emptying and significant acid reflux. C. Most recent mid and distal esophageal impaction with food and liquid requiring EGD on 03/27/2018 showing no signs of stenosis, but showed severe esophageal reflux and esophagitis and possible candid iasis of the esophagus. D. Presently asymptomatic as of 04/10/2018. 3. Coronary artery disease. A. Status post coronary artery bypass in 1993. B. Asymptomatic. 4. Hypertension. 5. Hyperlipidemia. 6. Osteoporosis. A. History of compression fracture of T8, T11, T12 and L1. B. Recent exacerbation of low back pain from a fall on 03/27/2018. 1. Much improved as of 04/06/2018. 7. Urge incontinence. 8. Mild dementia. PLAN: The patient is improving, but still weak, still requiring maximum assist with transfer, needs continued physical therapy. Her functional capabilities are still not such that the family could man age her in the home.
[2018-04-10] MEDS: Acetaminophen 325 MG TAB PO PRN (17:23)
[2018-04-11] MEDS: traMADol HCl 50 MG TAB PO PRN ×2 (05:35→19:46)
[2018-04-11] MEDS: Fluconazole 100 MG TAB PO SCH (08:48)
[2018-04-11] MEDS: Aspirin 81 mg Enteric Coated Tablet PO SCH (08:48)
[2018-04-11] MEDS: Metoclopramide HCl 10 MG TAB PO SCH ×2 (08:49→19:44)
[2018-04-11] MEDS: Acetaminophen 325 MG TAB PO PRN (21:12)
[2018-04-12] MEDS: Metoclopramide HCl 10 MG TAB PO SCH ×2 (08:15→19:38)
[2018-04-12] MEDS: traMADol HCl 50 MG TAB PO PRN ×2 (08:15→16:25)
[2018-04-12] MEDS: Aspirin 81 mg Enteric Coated Tablet PO SCH (08:16)
[2018-04-12] MEDS: Acetaminophen 325 MG TAB PO PRN (19:39)
[2018-04-13] MEDS: traMADol HCl 50 MG TAB PO PRN ×2 (03:46→13:12)
[2018-04-13] MEDS: Acetaminophen 325 MG TAB PO PRN ×2 (03:47→18:32)
[2018-04-13] MEDS: Aspirin 81 mg Enteric Coated Tablet PO SCH (08:17)
[2018-04-13] MEDS: Metoclopramide HCl 10 MG TAB PO SCH ×2 (08:17→20:16)
--- NOTE | 2018-04-13 11:28 | PRG ---
DATE OF SERVICE: 04/13/2018 SUBJECTIVE: The patient said she is doing fine with her swallowing. She still has trouble with that right hip hurting. She is doing good with her walking with the use of a walker and is walking up to 65 feet with a walker and assistance. She still has a lot of trouble with transfers and takes maxim um assist with the transfers. OBJECTIVE: The patient is sitting on the edge of the bed, requiring help from the therapist to nudge her to the edge of the bed so that she can put her feet on the ground. The getting up, then require d the use of a gait belt and 2 people assist to transfer her to a chair. Her vital signs show a temp erature of 97.2, pulse 74, respirations 16, O2 sat 93% on room air, blood pressure 179/79, earlier 15 4/68. Lungs are clear. Heart, regular rate. Extremities, no edema. ASSESSMENT: 1. Generalized weakness following a fall on 03/26/2018. A. Has left her nonambulatory with marked decline in her functional capability. B. Requiring assistance with all her ADLs. C. Fall occurred from ground level and has resulted in contusion to the right hip and low back with no evidence of fracture. 1. The patient still has this intermittent pain in that right hip. D. Improved Sitting up in a chair without difficulty. E. Requires maximum assist with transfer. Walking up to 65 feet with the use of a walker and assist ance as of 04/13/2018. 2. Severe gastroesophageal reflux. A. Complicated by severe erosive esophagitis. B. Complicated by food impactions in the esophagus repeatedly secondary to impaired or dysfunctional esophageal motility coupled with delayed gastric emptying and significant acid reflux. C. Most recent mid and distal esophageal impaction with food and liquid requiring EGD on 03/27/2018 showing no signs of stenosis, but showed severe esophageal reflux and esophagitis and possible candid iasis of the esophagus. D. Presently asymptomatic as of 04/13/2018. 3. Coronary artery disease. A. Status post coronary artery bypass in 1993. B. Asymptomatic. 4. Hypertension. 5. Hyperlipidemia. 6. Osteoporosis. A. History of compression fracture of T8, T11, T12 and L1. B. Recent exacerbation of low back pain from a fall on 03/27/2018. 1. Much improved as of 04/06/2018. 7. Urge incontinence. 8. Mild dementia. PLAN: The patient needs continued physical therapy, most particularly with her transfers. She is hernandez ving the difficulty, will need at least another week and suspect longer than that. She is doing bett er with her walking once she is up on her feet.
[2018-04-14] MEDS: traMADol HCl 50 MG TAB PO PRN ×3 (00:29→20:17)
[2018-04-14] MEDS: Aspirin 81 mg Enteric Coated Tablet PO SCH (08:33)
[2018-04-14] MEDS: Metoclopramide HCl 10 MG TAB PO SCH ×2 (08:33→20:17)
[2018-04-14] MEDS: Acetaminophen 325 MG TAB PO PRN ×2 (08:34→16:39)
[2018-04-15] MEDS: traMADol HCl 50 MG TAB PO PRN ×2 (05:33→16:12)
[2018-04-15] MEDS: Metoclopramide HCl 10 MG TAB PO SCH ×2 (08:12→21:04)
[2018-04-15] MEDS: Aspirin 81 mg Enteric Coated Tablet PO SCH (08:12)
--- NOTE | 2018-04-15 09:26 | PRG ---
DATE OF SERVICE: 04/15/2018 SUBJECTIVE: The patient says she feels a little better. Her hip is not hurting as much. She thinks it is better. She is not having any trouble with her eating. She is tolerating sitting up in a corrie ir with no trouble. She is walking up to 60 feet, still requires moderate to maximum assistance with transfers. OBJECTIVE: The patient is lying in bed, has not yet gotten up for the day. She is alert, appears co mfortable in no distress. Temp 97.6, pulse 91, respirations 18, O2 sat 96% on room air, blood pressu re 161/74. Lungs are clear. Heart, regular rate. Lower extremities, no edema. ASSESSMENT: 1. Generalized weakness following a fall on 03/26/2018. A. Has left her nonambulatory with marked decline in her functional capability. B. Requiring assistance with all her ADLs. C. Fall occurred from ground level and has resulted in contusion to the right hip and low back with no evidence of fracture. 1. Improved, pain in the right hip is less. D. Gradual improvement. Tolerating sitting up in a chair without difficulty. Ambulating with the u se of a walker and assistance up to 60 feet. Still requires moderate to maximum assist with any juares sfers as of 04/15/2018. 2. Severe gastroesophageal reflux. A. Complicated by severe erosive esophagitis. B. Complicated by food impactions in the esophagus repeatedly secondary to impaired or dysfunctional esophageal motility coupled with delayed gastric emptying and significant acid reflux. C. Most recent mid and distal esophageal impaction with food and liquid requiring EGD on 03/27/2018 showing no signs of stenosis, but showed severe esophageal reflux and esophagitis and possible candid iasis of the esophagus. D. Presently asymptomatic as of 04/15/2018. 3. Coronary artery disease. A. Status post coronary artery bypass in 1993. B. Asymptomatic. 4. Hypertension. 5. Hyperlipidemia. 6. Osteoporosis. A. History of compression fracture of T8, T11, T12 and L1. B. Recent exacerbation of low back pain from a fall on 03/27/2018. 1. Continued improvement as of 04/15/2018. 7. Urge incontinence. 8. Mild dementia. PLAN: The patient is making very slow progress, but still needs physical therapy. She is still requ iring moderate to maximum assistance with any transfers. Continue OT and PT.
[2018-04-15] MEDS: Acetaminophen 325 MG TAB PO PRN (12:03)
[2018-04-16] MEDS: traMADol HCl 50 MG TAB PO PRN ×2 (01:13→09:07)
[2018-04-16] MEDS: Acetaminophen 325 MG TAB PO PRN (06:22)
[2018-04-16] MEDS: Aspirin 81 mg Enteric Coated Tablet PO SCH (08:14)
[2018-04-16] MEDS: Metoclopramide HCl 10 MG TAB PO SCH ×2 (08:14→19:59)
[2018-04-16 19:34] VITALS: BMI 14.7
[2018-04-17] MEDS: traMADol HCl 50 MG TAB PO PRN ×2 (04:04→17:02)
[2018-04-17] MEDS: Acetaminophen 325 MG TAB PO PRN ×2 (07:44→20:36)
[2018-04-17] MEDS: Metoclopramide HCl 10 MG TAB PO SCH ×2 (08:21→20:37)
[2018-04-17] MEDS: Aspirin 81 mg Enteric Coated Tablet PO SCH (08:21)
[2018-04-18] MEDS: traMADol HCl 50 MG TAB PO PRN ×2 (02:24→20:35)
[2018-04-18] MEDS: Acetaminophen 325 MG TAB PO PRN (04:50)
[2018-04-18] MEDS: Aspirin 81 mg Enteric Coated Tablet PO SCH (08:58)
[2018-04-18] MEDS: Metoclopramide HCl 10 MG TAB PO SCH ×2 (08:58→20:37)
[2018-04-19] MEDS: Acetaminophen 325 MG TAB PO PRN ×3 (02:13→20:48)
[2018-04-19] MEDS: Metoclopramide HCl 10 MG TAB PO SCH ×2 (08:32→20:48)
[2018-04-19] MEDS: Aspirin 81 mg Enteric Coated Tablet PO SCH (08:32)
--- NOTE | 2018-04-19 13:24 | PRG ---
DATE OF SERVICE: 04/17/2018 SUBJECTIVE: The patient says she is doing okay. She has a little cough. She continues to work with physical therapy. She is able to walk up to 100 feet with a rolling walker, but very slow progress today. She is not able to do as much. She is still requiring moderate to maximum assist with transf ers. OBJECTIVE: GENERAL: The patient is alert. She is sitting up in a chair, later I saw her walking with a rolling walker and therapist along with her. She walks very slowly, little stoop and holding on to her walk er. VITAL SIGNS: Shows a temperature of 96.2, pulse 95, respirations 18, O2 sat 97% on room air, and blo od pressure 167/79. LUNGS: Clear. HEART: Regular rate. EXTREMITIES: No edema. ASSESSMENT: 1. Generalized weakness following a fall on 03/26/2018. A. Has left her nonambulatory with marked decline in her functional capability. B. Requiring assistance with all her ADLs. C. Fall occurred from ground level and has resulted in contusion to the right hip and low back with no evidence of fracture. 1. Improved, pain in the right hip is less as of 04/17/2018. D. Gradual improvement. Tolerating sitting up in a chair without difficulty. Ambulating with the u se of a walker and assistance up to 60 feet. Still requires moderate to maximum assist with any juares sfers as of 04/17/2018. 2. Severe gastroesophageal reflux. A. Complicated by severe erosive esophagitis. B. Complicated by food impactions in the esophagus repeatedly secondary to impaired or dysfunctional esophageal motility coupled with delayed gastric emptying and significant acid reflux. C. Most recent mid and distal esophageal impaction with food and liquid requiring EGD on 03/27/2018 showing no signs of stenosis, but showed severe esophageal reflux and esophagitis and possible candid iasis of the esophagus. D. Presently asymptomatic as of 04/17/2018. 3. Coronary artery disease. A. Status post coronary artery bypass in 1993. B. Asymptomatic. 4. Hypertension. 5. Hyperlipidemia. 6. Osteoporosis. A. History of compression fracture of T8, T11, T12 and L1. B. Recent exacerbation of low back pain from a fall on 03/27/2018. 1. Continued improvement as of 04/17/2018. 7. Urge incontinence. 8. Mild dementia. PLAN: The patient overall is doing a little better, but some days are not as good as others. She st ill has some pain in the hip still requires a lot of assistance with transfer. She is walking a adina le better, but needs supervision because she still at high risk. Her insurance is indicated that the y will no longer cover and as of Friday04/22/2018, family is making arrangement for her care at [facility]. They have a lady that assisted her. The patient will need this increased help at home.
[2018-04-19] MEDS: traMADol HCl 50 MG TAB PO PRN (21:10)
[2018-04-20] MEDS: Metoclopramide HCl 10 MG TAB PO SCH ×2 (07:56→20:05)
[2018-04-20] MEDS: Aspirin 81 mg Enteric Coated Tablet PO SCH (07:56)
[2018-04-20] MEDS: traMADol HCl 50 MG TAB PO PRN ×2 (08:08→22:38)
--- NOTE | 2018-04-20 09:20 | PRG ---
DATE OF SERVICE: 04/20/2018 SUBJECTIVE: The patient said she is just tired this morning, was not really want to get up. She tan s not have any new complaints. She is worried about her who had had a fall at home and had t o be hospitalized at [facility] last night. OBJECTIVE: The patient is lying in bed, alert, talkative, appears comfortable. Her temperature 97.7 , pulse 99, respirations 18, O2 sat 94% on room air, blood pressure 161/67. Her lungs are clear. He art, regular rate. Extremities, no edema. ASSESSMENT: 1. Generalized weakness following a fall on 03/26/2018. A. Has left her nonambulatory with marked decline in her functional capability. B. Requiring assistance with all her ADLs. C. Fall occurred from ground level and has resulted in contusion to the right hip and low back with no evidence of fracture. 1. Improved, pain in the right hip is less as of 04/20/2018. D. Gradual improvement. Tolerating sitting up in a chair without difficulty. Ambulating with the u se of a walker and assistance up to 60 feet. Still requires moderate to maximum assist with any juares sfers as of 04/20/2018. 2. Severe gastroesophageal reflux. A. Complicated by severe erosive esophagitis. B. Complicated by food impactions in the esophagus repeatedly secondary to impaired or dysfunctional esophageal motility coupled with delayed gastric emptying and significant acid reflux. C. Most recent mid and distal esophageal impaction with food and liquid requiring EGD on 03/27/2018 showing no signs of stenosis, but showed severe esophageal reflux and esophagitis and possible candid iasis of the esophagus. D. Presently asymptomatic as of 04/20/2018. 3. Coronary artery disease. A. Status post coronary artery bypass in 1993. B. Asymptomatic. 4. Hypertension. 5. Hyperlipidemia. 6. Osteoporosis. A. History of compression fracture of T8, T11, T12 and L1. B. Recent exacerbation of low back pain from a fall on 03/27/2018. 1. Continued improvement as of 04/17/2018. 7. Urge incontinence. 8. Mild dementia. PLAN: Continue present care. Continue physical therapy. Anticipate discharge probably on 8. Family arranging adequate care in the home.
[2018-04-20] MEDS: Acetaminophen 325 MG TAB PO PRN (20:13)
[2018-04-21] MEDS: Aspirin 81 mg Enteric Coated Tablet PO SCH (08:54)
[2018-04-21] MEDS: Metoclopramide HCl 10 MG TAB PO SCH ×2 (08:54→20:07)
[2018-04-21] MEDS: traMADol HCl 50 MG TAB PO PRN (08:55)
[2018-04-21] MEDS: Acetaminophen 325 MG TAB PO PRN (20:08)
[2018-04-22] MEDS: traMADol HCl 50 MG TAB PO PRN (05:06)
[2018-04-22] MEDS: Acetaminophen 325 MG TAB PO PRN (06:27)
[2018-04-22 08:12] VITALS: BP 181/74; TEMP 98.7
[2018-04-22] MEDS: Aspirin 81 mg Enteric Coated Tablet PO SCH (08:36)
[2018-04-22] MEDS: Metoclopramide HCl 10 MG TAB PO SCH (08:36)
--- NOTE | 2018-04-22 09:11 | DIS ---
FINAL DIAGNOSES: 1. Generalized weakness following a fall on 03/26/2018. A. Initially left her nonambulatory with marked decline in her functional capability. B. Requires assistance with all ADLs. C. Fall occurred from ground level and resulting contusion to the right hip and low back with no lupis dence of fracture, some small. 1. The pain from the contusion to these areas of the back and hip have improved, but not totally resolved. D. Gradual improvement. Tolerates sitting in a chair. E. Requires moderate assistance with transfers. Able to ambulate with a rolling walker and standby assistance up to 80 feet twice a day as of 04/22/2018. 2. Severe gastroesophageal reflux. A. Complicated by severe erosive esophagitis. B. Complicated by food impactions in the esophagus repeatedly secondary to impaired or dysfunctional esophageal motility coupled with delayed gastric emptying and significant acid reflux. C. Most recent mid and distal esophageal impaction with food and liquid requiring EGD on 03/27/2018 showing no signs of stenosis, but showed severe esophageal reflux and esophagitis and possible candid iasis of the esophagus. D. Presently asymptomatic as of 04/20/2018. 3. Coronary artery disease. A. Status post coronary artery bypass in 1993. B. Asymptomatic. 4. Hypertension. 5. Hyperlipidemia. 6. Osteoporosis. A. History of compression fracture of T8, T11, T12 and L1. B. Recent exacerbation of low back pain from a fall on 03/27/2018. 1. Continued improvement as of 04/22/2018. 7. Urge incontinence. 8. Mild dementia. SUMMARY: The patient is an 87-year-old white female who is very frail. She resides at home and able to assist with her ADLs. Her family assists her and has a caregiver who assists. She is usually ab le to walk with a walker for short distances, but requires assistance with bathing and dressing. She has a history of hypertension, osteoporosis, coronary artery disease for which she has undergone a b ypass in 1993 and has remained asymptomatic. She also has a history of severe gastroesophageal reflu x disease with delayed gastric emptying and has resulted in severe impaction with food. Her esophagu s requiring EGD and disimpaction on several occasions. The patient had initially presented to the ergency room. The patient had a fall at home when she had gotten up and had walked without her walke r and was trying to get something out of the pantry on the evening of 03/26/2018. She did not lose c onsciousness with the fall. She landed on her right hip. Evaluation showed no fractures in her back or her hip. She was initially admitted for pain control and weakness at [facility], but revie w of the CT scans, she was found to have an impaction of the esophagus. She was transferred to [facility] and admitted to [facility] from 03/27/2018 to 03/31/2018. There fire sprinkler apparatus inspector, Dr. Alexys Mustafa did an EGD on the afternoon of 03/27/2018 and found significant amount of liquid an d solid food in the distal esophagus. This was suctioned and pushed through, cleaning the esophagus and the stomach. She was found also to have what appeared to be a possible candidiasis. She also wa s found to have reflux of liquid from the stomach back into the esophagus. There was no stricture. It was felt that patient's severe gastroesophageal reflux disease and has also delayed gastric emptyi ng. She was treated with a 2-week period with Diflucan and then initially placed on a liquid diet th at was advanced to a mechanical soft. During her hospitalization at [facility] she has continu ed on a mechanical soft diet, but all her meals have been taken in sitting upright position and with instructions to try to remain upright throughout the day. She was kept on a proton pump inhibitor an d also on Reglan for the delayed gastric emptying. She did have biopsy of the esophagus. There were no viral cytopathic changes. It was negative for fungal components. The patient continued to be ex tremely weak, continued to have pain in her hip. This pain during her stay at [facility] was m anaged with rest, Gaymar pump providing moist heat and Tylenol for pain which seemed to work reasonab ly well. Physical therapy worked with her and she made gradual improvement. The transfers were the most difficult. Once she was up on her feet she was gradually able to walk and through her hospitali zation, gradually was able to walk up to 80 feet twice a day with a rolling walker and caregiver williams wallace. The transfer started out maximum and then improved to where she needs moderate assistance. Her overall condition remained stable. She had no chest pain during her hospitalization. Her family had elected for her to enter [facility] when her insurance refused to allow further skilled days in [facility]. Her condition was stable on 04/22/2018 and she was discharged to [facility]. DIET: Mechanical soft diet. All meals should be eaten with her sitting upright, small bites should be given and these well chewed and followed with a drink of a liquid. The patient should remain upri ght as much as possible throughout the day due to her reflux and her delayed gastric emptying. ACTIVITIES: Up in a chair as tolerated. Ambulate with the use of a rolling walker. PT and OT evalu ation and treatment. MEDICATIONS: Acetaminophen 325 mg 2 every 4 hours as needed for pain, Maalox 30 mL every 4 hours as needed, Artificial Tears 2 drops in the eyes 4 times a day as needed, aspirin 81 mg daily, metoclopra mide (Reglan) 5 mg b.i.d., pantoprazole 40 mg daily, metoprolol succinate 25 mg daily, nitroglycerin 0.4 mg sublingual p.r.n. chest pain, tramadol 50 mg q.8h. p.r.n. pain. FOLLOW UP: The patient will be seen in 1-2 weeks. CODE STATUS: Full code.
== END 2018-04-22 10:05 | DRG 948 ==
LOC: MADMS 18:21
PROVIDERS: ADMIT Family Medicine; ATTEND Family Medicine
DX: R53.1 Weakness (principal); K22.10 Ulcer of esophagus without bleeding; S70.01XA Contusion of right hip, initial encounter; S30.0XXA Contusion of lower back and pelvis, initial encounter; K21.0 Gastro-esophageal reflux disease with esophagitis; I25.10 Atherosclerotic heart disease of native coronary artery without angina pectoris; Z95.1 Presence of aortocoronary bypass graft; I10 Essential (primary) hypertension; E78.5 Hyperlipidemia, unspecified; M81.0 Age-related osteoporosis without current pathological fracture; N39.41 Urge incontinence; F03.90 Unspecified dementia, unspecified severity, without behavioral disturbance, psychotic disturbance, mood disturbance, and anxiety; B37.9 Candidiasis, unspecified; K30 Functional dyspepsia; T18.128A Food in esophagus causing other injury, initial encounter; M25.551 Pain in right hip
CPT/HCPCS: 36415; 80053; 85025; G8978-GP-CL; G8979-GP-CJ; G8987-GO-CM; G8988-GO-CI

== ENCOUNTER 2018-04-22 19:55 | Inpatient (IN) | payer MEDICARE ==
[2018-04-22 20:51] LABS: ALT (SGPT) 11 U/L (8-55); AST (SGOT) 15 U/L (5-34); Albumin 3.9 g/dL (3.4-4.8); Alkaline Phosphatase 219 U/L (40-150); Anion Gap 16 mmol/L (10-20); BUN (Urea Nitrogen) 17 mg/dL (9.8-20.1); Bilirubin, Total 0.5 mg/dL (0.2-1.2); Calc. Creatinine Clearance 0 mL/min (70-130); Calcium 9.5 mg/dL (7.8-10.44); Carbon Dioxide 25 mmol/L (23-31); Chloride 102 mmol/L (98-107); Estimated GFR-MDRD 86; Globulin 3.1 g/dL (2.4-3.5); Glucose 114 mg/dL (83-110); Potassium 3.7 mmol/L (3.5-5.1); Sodium 139 mmol/L (136-145)
--- NOTE | 2018-04-22 20:57 | RAD ---
PORTABLE CHEST: 04/22/2018 PROVIDED CLINICAL HISTORY: Fever. COMPARISON: 03/27/2018 FINDINGS: The cardiac and mediastinal silhouette are within normal limits. There is obscuration of the medial left hemidiaphragm, which may reflect pleural and/or parenchymal opacity. Air space disease of the m edial right lung base cannot be excluded. No evidence for pneumothorax. IMPRESSION: Left basilar pleural and/or parenchymal opacity. POS: [facility]
[2018-04-22 20:58] LABS: Bilirubin Negative (Negative); Blood, Urine Trace (Negative); Clarity Clear (Clear); Glucose, Urine (Dipstick) Negative (Negative); Leukocyte Negative (Negative); Nitrite Negative (Negative); Protein, Urine (Dipstick) 30 mg/dL (Neg-Trace); Urobilinogen 0.2 mg/dL (0.2-1.0)
[2018-04-22 21:05] LABS: Anisocytosis SLIGHT = 6-15 cells (100X) (0-5/hpf); Hemoglobin 11.4 g/dL (12.0-16.0); Hypochromia MODERATE=16-30 cells (100X) (0-5/hpf); Lymphocytes 5 % (21-51); MDiff Complete? YES; Mean Corpuscular Hemoglobin 26.1 pg (27.0-31.0); Mean Corpuscular Volume 81.5 fl (81.0-99.0); Mean Platelet Volume 7.7 fL (7.4-10.4); Metamyelocyte 67 % (0-0); Monocytes 4 % (0-10); Myelocyte 33 % (0-0); Neutrophil 89 % (42-75); PLT Morphology Comment Appears Adequate; Platelet Count 180 thou/uL (130-400); Poikilocytosis SLIGHT = 6-15 cells (100X) (0-5/hpf); RBC Distribution Width 16.9 % (11.5-14.5); RBC Morphology Abnormal; Reactive Lymphocytes 2 % (0-10); Red Blood Cell (RBC) Count 4.37 mill/uL (4.20-5.40); White Blood Cell (WBC) Count 14.9 thou/uL (4.8-10.8)
[2018-04-22 21:14] LABS: Bacteria/HPF Rare-Few HPF (None Seen); RBC/HPF 0-3 HPF (0-3); Squamous Epithelial 0-3 HPF (0-3); WBC/HPF 0-3 HPF (0-3)
[2018-04-22] MEDS ORDERED: Cefepime 1 GM VIAL ONE (21:44)
[2018-04-22] MEDS ORDERED: Clindamycin/D5W 600 mg/50 ml Premix Bag ONE (21:44)
[2018-04-22] MEDS ORDERED: Sodium Chloride 0.9% 1,000 ML IV SCH (23:51)
[2018-04-22] MEDS ORDERED: Acetaminophen 325 MG TAB PO PRN (23:51)
[2018-04-22] MEDS ORDERED: Ondansetron ODT 4 MG TAB PO PRN (23:51)
[2018-04-22] MEDS ORDERED: Bisacodyl 5 MG TAB PO PRN (23:53)
[2018-04-23 01:08] VITALS: BMI 18.8
[2018-04-23] MEDS: Clindamycin/D5W 600 MG in Premix Bag 1 BAG IVPB SCH ×4 (05:46→23:36)
[2018-04-23] MEDS ORDERED: Acetaminophen 325 MG TAB PO PRN (08:23)
[2018-04-23] MEDS ORDERED: Artificial Tear Sol 15 ML BOT EA EYE PRN (08:23)
[2018-04-23] MEDS ORDERED: Mag-Al Plus 1200 MG/1200 MG/120 MG/30 ML UDCUP PO PRN (08:23)
[2018-04-23] MEDS ORDERED: Nitroglycerin 0.4 MG TAB (25 Tab Bottle) SL PRN (08:23)
[2018-04-23] MEDS ORDERED: Famotidine 20 MG TAB PO SCH (09:00)
[2018-04-23] MEDS: Sodium Chloride 0.9% 1,000 ML IV SCH ×2 (09:05→11:34)
[2018-04-23] MEDS: Metoclopramide HCl 10 MG TAB PO SCH ×2 (09:14→20:10)
[2018-04-23] MEDS: Aspirin 81 mg Enteric Coated Tablet PO SCH (09:14)
[2018-04-23] MEDS: Cefepime 2 GM in Sodium Chloride 0.9% 100 ML IVPB SCH ×2 (09:15→21:40)
--- NOTE | 2018-04-23 10:26 | HP ---
CHIEF COMPLAINT: Fever and less responsive than usual. PRESENT ILLNESS: The patient is an 87-year-old female who is very frail. Prior to her recent hospit alization she has resided at home and has required assistance with her ADLs. She ambulates with the use of a walker. She has a history of hypertension, osteoporosis, multiple thoracolumbar compression fractures, coronary artery disease for which she has undergone bypass surgery in 1993 and has remain ed asymptomatic. She has severe gastroesophageal reflux disease with delayed gastric emptying that h as resulted in severe impaction of the esophagus with food and has required EGD and disimpaction on s everal events. The patient had had a fall when she was trying to get something out of her pantry and was not using her walker and fell on a tile floor on the evening of 03/26/2018. She had immediate p ain in the right hip, not able to get up. Her evaluation of the hips and pelvis showed no fracture, but she had severe pain and on further evaluation, the CT showed her esophagus was impacted again wit h food. She was initially transferred to [facility] and there remained from 03/27/2018 un til 03/31/2018. Bung Sewer, Dr. Mustafa did an EGD and disimpaction of the colon and found humberto t she had possible candidiasis, also found that she had severe gastroesophageal reflux with no obstru ction and delayed gastric emptying. Biopsy was unremarkable. The patient was treated initially with clear liquids and advanced to a mechanical soft diet and was continued on pantoprazole and on Reglan for the delayed gastric emptying. She was transferred to [facility] where she remained from 0 03/31/2018 until 04/22/2018 due to severe generalized weakness. The patient was improving and needed continued physical therapy. She was ambulating up to 80 feet with a walker and standby assistance, b ut having still difficulty with transfers. Her insurance would no longer cover her at [facility], but allowed coverage at [facility] where she was transferred on 04/22/2018. On the late afternoon of 04/22/2018 the nurses found that patient was having a temperature of 101.5. She was not talking. Her eyes were open, but she just did not seem to respond. She was transferred to [facility] Emergency Room where she was evaluated. There her O2 sat was 89%. Her temperat ure was 101.5. Her initial O2 was 89%, but later improved to 95%. Chest x-ray showed infiltrate in the left base. Heart size was normal. Her lab work showed an H&H of 11.4 and 35.6 with a white cell count 14,900 with 89% segs, 5% lymphocytes, and a platelet count of 180,000. Her sodium 139, potass ium 3.7, BUN 17, creatinine 0.65. Her glucose was 114. Lactic acid 1.1. Her urine showed 0-3 RBCs, 0-3 WBCs, and negative nitrite, specific gravity was 1.020. The patient was started on IV fluids. Cultures were obtained and then the patient started on IV antibiotics with Levaquin, Rocephin and Ramon ocin for hospital acquired infection and possible aspiration pneumonia. The patient was seen early on the morning of 04/23/2018. She was awake, talkative. She seemed to be back at her normal mental status baseline. She recognized me, knew she was back in the hospital and knew she was back in her previous room. She said she felt better. She is just having to urinate a lot since she has been in. The patient has remained afebrile through the night. Her O2 sat on 2 lit ers has been 93-96%. PAST HISTORY: Hospitalized at [facility] from 03/31/2018 to 04/22/2018 for severe generalized weakness following a fall resulting in contusion to the right hip. Strength improved where she was a mbulating with use of a walker, but still requiring a great deal of difficulty with transfers. She w as hospitalized at [facility] from 03/27/2018 until 03/31/2018 for distal esophageal impac tion requiring EGD and disimpaction. EGD showed severe esophageal reflux and gastritis and esophagit is and delayed gastric emptying. No stricture was found. She was also thought to have had a candidi asis of the esophagus due to the appearance, although none seen on biopsy. She was treated with a 2- week course of Diflucan. The patient was hospitalized 11/08/2017 until 12/17/2017 for closed nondisp laced fracture of the distal tibial plateau of the right leg, managed with a knee immobilizer and onl y partial weightbearing. Gradually this healed and she was allowed to ambulate full weightbearing an d with the use of a walker. Coronary artery disease for which she underwent a coronary artery bypass in 1993 and remains asymptomatic. Hypertension, hyperlipidemia, severe gastroesophageal reflux with esophagitis and delayed gastric emptying. She has required balloon dilation of distal esophagus on 0 03/11/2017 for a food impaction, rehospitalized on 03/26/2018 for repeat EGD for a dilated esophagus t hat was totally impacted with food. Again, the esophagus was evacuated. No strictures seen. Manage d with proton-pump inhibitors, antireflux measures and initial clear liquids, progressing to a pureed diet. EGD on 08/2017 showed an open esophagus. No evidence of achalasia and no evidence on biopsy. The esophagus was free of any impaction at that time. The patient had a fall in the fall of 2016 r esulting in fractures of the spinous process of C4, 5 and 6 and interlaminar fracture C5 and C6 witho ut any neurologic impairment. She was managed in a rigid cervical collar for 8 weeks and has since h ealed. She has osteoporosis with history of compression fracture of T8, T11, T12 and L1. She has ge neralized osteoarthritis. She has had a fracture of the right hip requiring intramedullary yolette and n ail. She has had an appendectomy, DEMI/BSO, and bilateral rotator cuff repair. She has mild dementia , urge incontinence and vitamin D deficiency. PRESENT MEDICINES: Acetaminophen 325 mg 2 every 4 hours as needed, Maalox 30 mL every 4 hours as nee ded, Artificial Tears 2 drops in the eyes 4 times a day as needed, aspirin 81 mg daily, metoclopramid e 5 mg b.i.d., pantoprazole 40 mg daily, metoprolol succinate ER 25 mg daily, nitroglycerin 0.4 mg osorio blingual p.r.n. chest pain, tramadol 50 mg 1 every 8 hours as needed for pain. ALLERGIES: No known allergies. DIET: Mechanical soft diet, eating all meals sitting up and trying to remain upright in a chair for most of the day. REVIEW OF SYSTEMS: The patient says she feels better today. She has not had any more fever. She is not sure if there has been any change in her weight. HEENT: No complaints. PULMONARY: The patient said she has a little cough. CARDIOVASCULAR: No chest pain. GASTROINTESTINAL: The patient said she has not had any nausea or vomiting or abdominal pain, no bell ge in her bowel habits. : The patient said she is urinating frequently. She is incontinent of urine. HABITS: Alcohol none. Tobacco none. SOCIAL HISTORY: The patient prior to these hospitalizations lived at home with her and with a caregiver and family to assist her. She ambulates with the use of a walker. She requires someone to assist with bathing and dressing. She requires someone to take care of all her instrumental ADLs. CODE STATUS: Full code. PHYSICAL EXAMINATION: GENERAL: Shows a very pleasant 87-year-old white female who is lying in bed. She is awake, talkativ e, recognizes me, knows she is back in the hospital and knows she is in her same room from which she was discharged yesterday. VITAL SIGNS: Shows a temperature of 97.6, pulse 86, respirations 18, O2 sat 93% on 2 liters, blood p ressure 153/68. Her weight is 84 pounds. HEAD: Normocephalic and atraumatic. EYES: Pupils were equal, round, and reactive. Sclerae nonicteric. EARS: Left TM blocked by cerumen. Right TM clear. NOSE: Normal. MOUTH AND THROAT: Normal. Mucous membranes are moist. NECK: Carotids are equally strong, no bruits. Thyroid not enlarged. LUNGS: Lungs have rales at the bases posteriorly. There is also some rhonchi over the left posterio r base that are heard on expiration. HEART: Regular rate. No murmurs. ABDOMEN: Scaphoid, no organomegaly, nor areas of tenderness. EXTREMITIES: No edema. SKIN: No rash or ulcerations. NEUROLOGIC: The patient is alert, oriented, knows who she is, recognizes me, knows she is in the hos pital in her same room. She has generalized weakness, but no focal weakness. IMPRESSION: 1. Left lower lobe pneumonia. A. Hospital-acquired and possible aspiration. B. Presenting with fever and alteration in mental status. C. Improved with no fever and resolution of the mild hypoxemia as 04/23/2018. 2. Generalized weakness following a fall on 03/26/2018. A. Fall resulting in contusion to the right hip that has improved. B. Generalized weakness had improved where she has been ambulating up to 80 feet with a rolling walk er and standby assistance, but still requiring moderate assistance with transfer. C. Weakness markedly improved since the development of the pneumonia on the afternoon of 04/22/2018. 3. Severe gastroesophageal reflux disease. A. Complicated by severe erosive esophagitis. B. Complicated by delayed gastric emptying. C. Complicated with repeated episodes of food impaction requiring EGD with disimpaction. D. Last EGD and disimpaction on 03/27/2018. E. Previous exam and biopsy showed no evidence of achalasia. 4. Coronary artery disease. A. Status post coronary artery bypass in 1993. B. Asymptomatic. 5. Hypertension. 6. Hyperlipidemia. 7. Osteoporosis. A. History of compression fracture of T8, T11, T12 and L1. 8. Mild dementia. 9. Urinary incontinence. PLAN: The patient looks better this morning after the initiation of the antibiotics. Cultures have been drawn and awaiting these results. We will continue her present course of antibiotics. Reduce h er fluids. We will try the patient on full liquid diet and advance this back to mechanical soft if s he tolerates the full liquid. I suspect she will need to hospitalization for at least a 4-day period for the IV antibiotics and then will need [facility] for physical therapy to try to help her se shelby weakness and deconditioning. CODE STATUS: Full code.
[2018-04-23] MEDS: traMADol HCl 50 MG TAB PO PRN ×2 (14:43→23:37)
[2018-04-24 05:52] LABS: Anion Gap 14 mmol/L (10-20); BUN (Urea Nitrogen) 12 mg/dL (9.8-20.1); Calc. Creatinine Clearance 36 mL/min (70-130); Calcium 8.2 mg/dL (7.8-10.44); Carbon Dioxide 23 mmol/L (23-31); Chloride 108 mmol/L (98-107); Estimated GFR-MDRD 83; Glucose 95 mg/dL (83-110); Sodium 142 mmol/L (136-145)
[2018-04-24 05:58] LABS: Anisocytosis SLIGHT = 6-15 cells (100X) (0-5/hpf); Eosinophils 3 % (0-10); Hemoglobin 8.6 g/dL (12.0-16.0); Hypochromia SLIGHT = 6-15 cells (100X) (0-5/hpf); Lymphocytes 7 % (21-51); MDiff Complete? YES; Mean Corpuscular Hemoglobin 26.2 pg (27.0-31.0); Mean Corpuscular Volume 81.9 fl (81.0-99.0); Mean Platelet Volume 7.7 fL (7.4-10.4); Monocytes 8 % (0-10); Neutrophil 82 % (42-75); Ovalocytes SLIGHT = 2-5 cells (100X) (0-1/hpf); PLT Morphology Comment Appears Adequate; Platelet Count 162 thou/uL (130-400); Poikilocytosis SLIGHT = 6-15 cells (100X) (0-5/hpf); RBC Distribution Width 15.9 % (11.5-14.5); RBC Morphology Abnormal
[2018-04-24] MEDS: Clindamycin/D5W 600 MG in Premix Bag 1 BAG IVPB SCH ×4 (06:05→23:41)
[2018-04-24 06:08] LABS: Critical Call Chemistry report taken to floor; Potassium 2.7 mmol/L (3.5-5.1)
[2018-04-24] MEDS: Metoclopramide HCl 10 MG TAB PO SCH ×2 (08:36→21:19)
[2018-04-24] MEDS: Potassium Chloride 20 MEQ TAB PO SCH ×2 (08:36→17:04)
[2018-04-24] MEDS: Aspirin 81 mg Enteric Coated Tablet PO SCH (08:36)
[2018-04-24] MEDS: Cefepime 2 GM in Sodium Chloride 0.9% 100 ML IVPB SCH ×2 (10:17→21:20)
--- NOTE | 2018-04-24 14:59 | PRG ---
DATE OF SERVICE: 04/24/2018 SUBJECTIVE: The patient says she feels a lot better today. She is eating the full liquid diet witho ut any problem, but would like to have something more. OBJECTIVE: The patient is sitting up in a bedside chair. She is alert, very talkative, looks much b davion. She is in no distress. Her vital signs show she remains afebrile with a temperature of 97.4, pulse 80, respirations 18, O2 sat 93% on room air, blood pressure 158/68. Lungs were clear. The flaquita quintanilla is not making good real deep respiratory efforts though, there is no wheezing or rhonchi. I di d not hear any rales at the bases. Heart, regular rate. Extremities, no edema. H&H 8.6 and 27. The drop in the H&H is probably secondary to her IV fluid with rehydration in a rachael ent that was relatively dehydrated when she came in. Her white blood cell count is 9000 down from 14 .9. There is 82% segs, 7% lymphocytes, platelet count of 162,000. Sodium 142, potassium 2.7, BUN is down to 12, creatinine 0.67, glucose 95. ASSESSMENT: 1. Left lower lobe pneumonia. A. Hospital-acquired and possible aspiration. B. Presenting with fever and alteration in mental status. C. Marked improvement. Mental status is at her baseline. She remains afebrile as of 04/24/2018. 2. Generalized weakness following a fall on 03/26/2018. A. Fall resulting in contusion to the right hip that has improved. B. Generalized weakness had improved where she has been ambulating up to 80 feet with a rolling walk er and standby assistance, but still requiring moderate assistance with transfer. C. Weakness has markedly increased since the development of her pneumonia requiring admission on . D. Improved, tolerating sitting up in a chair as of 04/24/2018. 3. Severe gastroesophageal reflux disease. A. Complicated by severe erosive esophagitis. B. Complicated by delayed gastric emptying. C. Complicated with repeated episodes of food impaction requiring EGD with disimpaction. D. Last EGD and disimpaction on 03/27/2018. E. Previous exam and biopsy showed no evidence of achalasia. F. Tolerating a full liquid diet. We will advance her to a mechanical soft diet as of 04/24/2018. 4. Coronary artery disease. A. Status post coronary artery bypass in 1993. B. Asymptomatic. 5. Hypertension. 6. Hyperlipidemia. 7. Osteoporosis. A. History of compression fracture of T8, T11, T12 and L1. 8. Mild dementia. 9. Urinary incontinence. 10. Hypokalemia. A. Potassium 2.7 as of 04/24/2018 for which she has been started on potassium supplementation. PLAN: We will discontinue the IV fluids. I have started the patient on potassium supplement with JUAN JOSE l 20 mEq b.i.d. Will reassess CBC and basic metabolic panel in the morning. Physical Therapy will e valuate her. Continue IV antibiotics.
[2018-04-25] MEDS: traMADol HCl 50 MG TAB PO PRN (06:03)
[2018-04-25] MEDS: Clindamycin/D5W 600 MG in Premix Bag 1 BAG IVPB SCH (06:04)
[2018-04-25 06:22] LABS: Anion Gap 15 mmol/L (10-20); BUN (Urea Nitrogen) 12 mg/dL (9.8-20.1); Calc. Creatinine Clearance 36 mL/min (70-130); Calcium 8.8 mg/dL (7.8-10.44); Carbon Dioxide 22 mmol/L (23-31); Chloride 107 mmol/L (98-107); Estimated GFR-MDRD 82; Glucose 100 mg/dL (83-110); Potassium 3.2 mmol/L (3.5-5.1); Sodium 141 mmol/L (136-145)
[2018-04-25 06:31] LABS: Anisocytosis SLIGHT = 6-15 cells (100X) (0-5/hpf); Band 4 % (5-11); Eosinophils 1 % (0-10); Hypochromia SLIGHT = 6-15 cells (100X) (0-5/hpf); Lymphocytes 8 % (21-51); MDiff Complete? YES; Mean Corpuscular HGB CONC 31.9 g/dL (32.0-36.0); Mean Corpuscular Hemoglobin 26.1 pg (27.0-31.0); Mean Corpuscular Volume 81.6 fl (81.0-99.0); Mean Platelet Volume 6.2 fL (7.4-10.4); Monocytes 1 % (0-10); Neutrophil 86 % (42-75); PLT Morphology Comment Appears Adequate; Platelet Count 177 thou/uL (130-400); RBC Distribution Width 16.3 % (11.5-14.5); Red Blood Cell (RBC) Count 3.44 mill/uL (4.20-5.40); White Blood Cell (WBC) Count 9.1 thou/uL (4.8-10.8)
[2018-04-25 06:57] VITALS: BP 188/77; TEMP 97.5
[2018-04-25] MEDS: Potassium Chloride 20 MEQ TAB PO SCH (07:25)
[2018-04-25] MEDS: Metoclopramide HCl 10 MG TAB PO SCH (09:42)
[2018-04-25] MEDS: Aspirin 81 mg Enteric Coated Tablet PO SCH (09:42)
[2018-04-25] MEDS: Cefepime 2 GM in Sodium Chloride 0.9% 100 ML IVPB SCH (09:44)
--- NOTE | 2018-04-26 11:55 | PRG ---
DATE OF SERVICE: 04/25/2018 SUBJECTIVE: The patient said she did not rest very well last night. The patient said her breathing is doing better. OBJECTIVE: The patient is lying in bed. She is alert, talkative, appears comfortable, and in no dis tress. She remains afebrile with a temperature of 97.5, pulse 92, respirations 18, O2 sat 94% on hillary m air, blood pressure 188/78. Her weight yesterday was 84 pounds. Her lungs, anterior chest clear. Posterior chest, a little decreased breath sounds in the bases. Heart, regular rate. Extremities: No edema. LABORATORY DATA: Lab shows an H and H of 9 and 28.1, white cell count 9100 with 86% segs, 4% bands, 8% lymphocytes, platelet count 177,000. Sodium 141, potassium is up to 3.2, BUN 12, creatinine 0.68, GFR 82. Glucose 100. Her urine culture has a mixed culture, probable contamination. Her blood cul ture 1 of 2 is growing a gram-positive cocci that was negative for Staph aureus, Staph epidermidis, a nd strep and Enterococcus, identification still in progress. Suspect this represents a contaminant. ASSESSMENT: 1. Left lower lobe pneumonia. A. Hospital-acquired and possible aspiration. B. Presenting with fever and alteration in mental status. C. Continued improvement. The mental status remains at her baseline. She remains afebrile as of . D. One of two blood cultures positive for gram-positive cocci and Staphylococcus or Streptococcus, s uspect this is probably a contaminant. 2. Generalized weakness following a fall on 03/26/2018. A. Fall resulting in contusion to the right hip that has improved. B. Generalized weakness had improved where she has been ambulating up to 80 feet with a rolling walk er and standby assistance, but still requiring moderate assistance with transfer. C. Weakness has markedly increased since the development of her pneumonia requiring admission on . D. Improved, tolerating sitting up in a chair as of 04/24/2018. 3. Severe gastroesophageal reflux disease. A. Complicated by severe erosive esophagitis. B. Complicated by delayed gastric emptying. C. Complicated with repeated episodes of food impaction requiring EGD with disimpaction. D. Tolerating a regular diet, mechanical soft, as of 04/25/2018. E. Previous exam and biopsy showed no evidence of achalasia. F. Tolerating a full liquid diet. We will advance her to a mechanical soft diet as of 04/24/2018. 4. Coronary artery disease. A. Status post coronary artery bypass in 1993. B. Asymptomatic. 5. Hypertension. 6. Hyperlipidemia. 7. Osteoporosis. A. History of compression fracture of T8, T11, T12 and L1. 8. Mild dementia. 9. Urinary incontinence. 10. Hypokalemia. A. Improved with potassium increased from 2.7 to 3.2 as of 04/25/2018. PLAN: We will continue the IV Levaquin and cefepime. We will stop the clindamycin. We will continu e potassium supplementation. We will move patient to extended care for continuation of IV antibiotic s and also for physical therapy. See orders.
== END 2018-04-25 11:44 | disposition swing bed (61) | DRG 178 ==
LOC: MADERS 19:55 → MADMS 21:31
PROVIDERS: ADMIT Family Medicine; ATTEND Family Medicine
DX: J69.0 Pneumonitis due to inhalation of food and vomit (principal); K22.10 Ulcer of esophagus without bleeding; S70.02XA Contusion of left hip, initial encounter; K21.0 Gastro-esophageal reflux disease with esophagitis; K30 Functional dyspepsia; I25.10 Atherosclerotic heart disease of native coronary artery without angina pectoris; Z95.1 Presence of aortocoronary bypass graft; I10 Essential (primary) hypertension; E78.5 Hyperlipidemia, unspecified; M81.0 Age-related osteoporosis without current pathological fracture; F03.90 Unspecified dementia, unspecified severity, without behavioral disturbance, psychotic disturbance, mood disturbance, and anxiety; R32 Unspecified urinary incontinence; T18.128A Food in esophagus causing other injury, initial encounter; M15.9 Polyosteoarthritis, unspecified; E87.6 Hypokalemia
CPT/HCPCS: 36415; 71045; 80048; 80053; 81003; 81015; 83605; 85025; 87040; 87086; 87149; A4216; A4353; J0692; J1956; J3490; J7050

== ENCOUNTER 2018-04-25 11:11 | Inpatient (IN) | payer MEDICARE ==
[2018-04-25] MEDS ORDERED: Artificial Tear Sol 15 ML BOT EA EYE PRN (12:41)
[2018-04-25] MEDS ORDERED: Ondansetron ODT 4 MG TAB PO PRN (12:42)
[2018-04-25] MEDS ORDERED: Nitroglycerin 0.4 MG TAB (25 Tab Bottle) SL PRN (12:42)
[2018-04-25] MEDS ORDERED: Mag-Al Plus 1200 MG/1200 MG/120 MG/30 ML UDCUP PO PRN (12:42)
[2018-04-25] MEDS: Potassium Chloride 20 MEQ TAB PO SCH (17:14)
[2018-04-25] MEDS: Metoclopramide HCl 10 MG TAB PO SCH (21:05)
[2018-04-25] MEDS: traMADol HCl 50 MG TAB PO PRN (21:05)
[2018-04-25] MEDS: Cefepime 2 GM in Sodium Chloride 0.9% 100 ML IVPB SCH (21:06)
[2018-04-26 05:46] LABS: Anion Gap 16 mmol/L (10-20); BUN (Urea Nitrogen) 12 mg/dL (9.8-20.1); Calc. Creatinine Clearance 38 mL/min (70-130); Carbon Dioxide 22 mmol/L (23-31); Chloride 105 mmol/L (98-107); Estimated GFR-MDRD 88; Glucose 103 mg/dL (83-110); Potassium 4.1 mmol/L (3.5-5.1); Sodium 139 mmol/L (136-145)
[2018-04-26 05:54] LABS: Band 2 % (5-11); Eosinophils 2 % (0-10); Hemoglobin 9.4 g/dL (12.0-16.0); Lymphocytes 20 % (21-51); MDiff Complete? YES; Mean Corpuscular HGB CONC 32.1 g/dL (32.0-36.0); Mean Corpuscular Hemoglobin 26.1 pg (27.0-31.0); Mean Corpuscular Volume 81.3 fl (81.0-99.0); Mean Platelet Volume 6.7 fL (7.4-10.4); Monocytes 3 % (0-10); Neutrophil 73 % (42-75); PLT Morphology Comment Appears Adequate; Platelet Count 167 thou/uL (130-400); RBC Distribution Width 16.3 % (11.5-14.5); Red Blood Cell (RBC) Count 3.62 mill/uL (4.20-5.40)
[2018-04-26] MEDS: Aspirin 81 mg Enteric Coated Tablet PO SCH (08:34)
[2018-04-26] MEDS: Metoclopramide HCl 10 MG TAB PO SCH ×2 (08:34→20:42)
[2018-04-26] MEDS: Potassium Chloride 20 MEQ TAB PO SCH (08:34)
[2018-04-26] MEDS: traMADol HCl 50 MG TAB PO PRN ×2 (08:39→20:43)
[2018-04-26] MEDS ORDERED: Prevnar 13-Val Conj/PF 0.5 ML SYRINGE IM ONE (09:00)
[2018-04-26] MEDS: Cefepime 2 GM in Sodium Chloride 0.9% 100 ML IVPB SCH ×2 (09:52→20:43)
--- NOTE | 2018-04-26 13:14 | RAD ---
PORTABLE UPRIGHT FRONTAL CHEST RADIOGRAPH: DATE: 04/26/18. COMPARISON: 04/22/18. HISTORY: Pneumonia. FINDINGS: There is increased linear density in the medial left lung base, improved since the 04/22/18 exam. The re is hazy patchy subtle opacity in the right lung base as well. Midline sternotomy wires are presen t. There is no pneumothorax or large volume pleural effusion. IMPRESSION: Mild residual bibasilar parenchymal opacity, improved on the left. Continued followup to full resolu tion advised. Findings suggest residual inflammatory change. POS: [facility]
[2018-04-26] MEDS: Potassium Chloride 10 MEQ TAB PO SCH (17:06)
[2018-04-27 06:18] LABS: Anion Gap 15 mmol/L (10-20); BUN (Urea Nitrogen) 15 mg/dL (9.8-20.1); Calc. Creatinine Clearance 37 mL/min (70-130); Carbon Dioxide 24 mmol/L (23-31); Chloride 102 mmol/L (98-107); Estimated GFR-MDRD 86; Glucose 120 mg/dL (83-110); Potassium 4.3 mmol/L (3.5-5.1); Sodium 137 mmol/L (136-145)
[2018-04-27] MEDS: Metoclopramide HCl 10 MG TAB PO SCH ×2 (08:20→21:05)
[2018-04-27] MEDS: Potassium Chloride 10 MEQ TAB PO SCH ×2 (08:21→17:07)
[2018-04-27] MEDS: Aspirin 81 mg Enteric Coated Tablet PO SCH (08:21)
[2018-04-27] MEDS: Cefepime 2 GM in Sodium Chloride 0.9% 100 ML IVPB SCH ×2 (10:13→21:06)
--- NOTE | 2018-04-27 15:36 | PRG ---
DATE OF SERVICE: 04/26/2018 SUBJECTIVE: The patient said she has not felt very good this morning. She has pain in the right hip , but patient just medicated with tramadol. OBJECTIVE: The patient is sitting upright in bed, just eating breakfast. She appears comfortable an d not in any acute distress. Her vital signs show a temperature of 97.3, pulse 88, respirations 18, O2 sat 94% on room air, blood pressure 162/80 and earlier 149/66. Lungs are clear. Heart, regular r ate. Extremities: No edema. LABORATORY DATA: Lab shows an H and H of 9.4 and 29.4, white cell count 7000 with 73% segs, 2% bands , 20% lymphocytes, and a platelet count of 167,000. Sodium 139, potassium 4.1, BUN 12, creatinine 0. 64, glucose 103. Her urine culture grew strep viridans with 100,000 colony count. The Enterococcus has a low colony count of 10,000-25,000. One of the two blood cultures grew Micrococcus luteus, whic h is considered a skin contaminant. Her portable upright chest x-ray this morning has been completed , but not yet viewable on computer, has not yet been interpreted by the radiologist. ASSESSMENT: 1. Left lower lobe pneumonia. A. Hospital-acquired and possible aspiration. B. Mental status back at her baseline as of 04/26/2018. C. Continued improvement. Remains afebrile as of 04/26/2018. D. One of two blood cultures positive for gram-positive cocci and Staphylococcus or Streptococcus, s uspect this is probably a contaminant. 2. Generalized weakness following a fall on 03/26/2018. A. Fall resulting in contusion to the right hip that has improved. B. Generalized weakness had improved where she has been ambulating up to 80 feet with a rolling walk er and standby assistance, but still requiring moderate assistance with transfer. C. Weakness has markedly increased since the development of her pneumonia, requiring admission on . D. Improved where she will tolerate sitting up in a chair intermittently as of 04/26/2018. 3. Severe gastroesophageal reflux disease. A. Complicated by severe erosive esophagitis. B. Complicated by delayed gastric emptying. C. Complicated with repeated episodes of food impaction requiring EGD with disimpaction. D. Tolerating a regular diet, mechanical soft, as of 04/25/2018. E. Previous exam and biopsy showed no evidence of achalasia. F. Tolerating mechanical soft diet as of 04/26/2018. 4. Coronary artery disease. A. Status post coronary artery bypass in 1993. B. Asymptomatic. 5. Hypertension. 6. Hyperlipidemia. 7. Osteoporosis. A. History of compression fracture of T8, T11, T12 and L1. 8. Mild dementia. 9. Urinary incontinence. 10. Hypokalemia. A. Controlled potassium 4.1 as of 04/26/2018. PLAN: Continue present care. Continue IV antibiotics. We will reduce the potassium supplementation to 10 mEq b.i.d.
--- NOTE | 2018-04-27 15:43 | PRG ---
DATE OF SERVICE: SUBJECTIVE: The patient is sitting up in her chair today, having eaten a good breakfast. She looks much better. She says she still has pain though some in her back and her hip. She is working with p hysical therapy and she is able to walk up to 70 feet with a rolling walker, but it takes moderate to maximum assist with any transfers. OBJECTIVE: The patient is sitting up in her bedside chair. She looks much better. She is alert, ta lkative, interactive. Her temperature is 97.3, pulse 96, respirations 18, O2 sat 95% on room air. H er blood pressure 174/76. Her lungs were clear. Heart, regular rate. Extremities, no edema. BMP shows sodium 137, potassium 4.3. Her GFR is 86, glucose 120. ASSESSMENT: 1. Left lower lobe pneumonia. A. Hospital-acquired and possible aspiration. B. Presenting with fever and alteration in mental status. C. Continued improvement. Mental status remains at her baseline. She remains afebrile. Lungs jose ined clear. Followup chest x-ray showed resolution of the left basilar pneumonia and there are some residual right basilar infiltrate as of 04/27/2018. D. The 1 of 2 blood cultures was positive for Micrococcus which represent a skin contaminant. 2. Generalized weakness following a fall on 03/26/2018. A. Fall resulting in contusion to the right hip that has improved. B. General weakness more easily increased since the development of the pneumonia requiring readmissi on on 04/22/2018. C. Improved where she is walking a little further with a rolling walker and assistance, but requirin g moderate to maximum assistance with any transfers. D. Improved, tolerating sitting up in a chair as of 04/24/2018. 3. Severe gastroesophageal reflux disease. A. Complicated by severe erosive esophagitis. B. Complicated by delayed gastric emptying. C. Complicated with repeated episodes of food impaction requiring EGD with disimpaction. D. Tolerating a regular diet, mechanical soft, as of 04/25/2018. E. Previous exam and biopsy showed no evidence of achalasia. F. Now tolerating a mechanical soft diet with chopped meats and no bread as of 04/27/2018. 4. Coronary artery disease. A. Status post coronary artery bypass in 1993. B. Asymptomatic. 5. Hypertension. 6. Hyperlipidemia. 7. Osteoporosis. A. History of compression fracture of T8, T11, T12 and L1. 8. Mild dementia. 9. Urinary incontinence. 10. Hypokalemia. A. Improved with potassium increased from 2.7 to 3.2 as of 04/25/2018. PLAN: We will continue the patient's IV antibiotics for this hospital acquired pneumonia for a 7 day period. These will complete on 04/29/2018. Continue physical therapy.
[2018-04-27] MEDS: Acetaminophen 325 MG TAB PO PRN (21:05)
[2018-04-28] MEDS: Potassium Chloride 10 MEQ TAB PO SCH ×2 (08:08→16:35)
[2018-04-28] MEDS: Acetaminophen 325 MG TAB PO PRN (08:08)
[2018-04-28] MEDS: Aspirin 81 mg Enteric Coated Tablet PO SCH (09:02)
[2018-04-28] MEDS: Metoclopramide HCl 10 MG TAB PO SCH ×2 (09:02→21:48)
[2018-04-28] MEDS: traMADol HCl 50 MG TAB PO PRN ×2 (09:03→22:11)
--- NOTE | 2018-04-28 14:22 | PRG ---
DATE OF SERVICE: 04/28/2018 SUBJECTIVE: The patient says she did not feel very good this morning. She is up sitting in the chantal r, has already walked some and physical therapy is continuing to work with her. Right now she is sit ting in a chair. She appears comfortable and in no acute distress. OBJECTIVE: Her temperature is 97.2, pulse 96, respirations 18, O2 sat 94% on room air, blood pressur e 130/59. Lungs were clear. Heart, regular rate. Extremities, no edema. Her labs shows an H&H of 9.4 and 29.4, WBC count 7000 with 73% segs, 2% bands, 20% lymphocytes, and p latelet count of 167,000, that was on 04/26/2018. ASSESSMENT: 1. Left lower lobe pneumonia. A. Hospital-acquired and possible aspiration. B. Presenting with fever and alteration in mental status. C. Continued improvement. Mental status remains at her baseline. She remains afebrile. Lungs jose ined clear. Followup chest x-ray showed resolution of the left basilar pneumonia and there are some residual right basilar infiltrate as of 04/27/2018. The patient remains afebrile. Lungs are clear a s of 04/28/2018. D. The 1 of 2 blood cultures was positive for Micrococcus which represent a skin contaminant. 2. Generalized weakness following a fall on 03/26/2018. A. Fall resulting in contusion to the right hip that has improved. B. Generalized weakness with marked increase since development of the pneumonia requiring readmissio n on 04/22/2018. C. Improved where she is walking further with a rolling walker and assistance. Still requires moder ate assistance with any transfers as of 04/28/2018. 3. Severe gastroesophageal reflux disease. A. Complicated by severe erosive esophagitis. B. Complicated by delayed gastric emptying. C. Complicated with repeated episodes of food impaction requiring EGD with disimpaction. D. Tolerating a regular diet, mechanical soft, as of 04/25/2018. E. Previous exam and biopsy showed no evidence of achalasia. F. Tolerating a mechanical soft diet with chopped meats and no breads as of 04/28/2018. 4. Coronary artery disease. A. Status post coronary artery bypass in 1993. B. Asymptomatic. 5. Hypertension. 6. Hyperlipidemia. 7. Osteoporosis. A. History of compression fracture of T8, T11, T12 and L1. 8. Mild dementia. 9. Urinary incontinence. 10. Hypokalemia. A. Improved with potassium increased from 2.7 to 3.2 as of 04/25/2018. PLAN: The patient is doing well other than her weakness that has improved. We will discontinue her IV antibiotics. The patient has had 6 days of the antibiotics and is doing well and lungs are clear. Her last x-ray showed resolution of the left basilar pneumonia and still a little infiltrate at the right. Clinically her chest is clear today. We will leave her on Levaquin for another 7 days. [facility] physical therapy.
[2018-04-29 05:25] LABS: #Basophils 0.1 thou/uL (0.0-0.2); #Eosinphils 0.1 thou/uL (0.0-0.7); #Lymphocytes 1.4 thou/uL (1.20-3.40); #Monocytes 0.6 thou/uL (0.11-0.59); #Neutrophils 5.1 thou/uL (1.40-6.50); %Eosinophils 1.4 % (0.0-10.0); %Lymphocytes 18.7 % (21.0-51.0); %Monocytes 8.8 % (0.0-10.0); %Neutrophils 70.1 % (42.0-75.0); Hemoglobin 8.7 g/dL (12.0-16.0); Mean Corpuscular HGB CONC 31.7 g/dL (32.0-36.0); Mean Corpuscular Hemoglobin 26.3 pg (27.0-31.0); Mean Corpuscular Volume 83.1 fl (81.0-99.0); Mean Platelet Volume 6.5 fL (7.4-10.4); Platelet Count 279 thou/uL (130-400); RBC Distribution Width 15.8 % (11.5-14.5); Red Blood Cell (RBC) Count 3.32 mill/uL (4.20-5.40); White Blood Cell (WBC) Count 7.3 thou/uL (4.8-10.8)
[2018-04-29 05:36] LABS: Anion Gap 16 mmol/L (10-20); BUN (Urea Nitrogen) 41 mg/dL (9.8-20.1); Calc. Creatinine Clearance 34 mL/min (70-130); Calcium 9.5 mg/dL (7.8-10.44); Carbon Dioxide 24 mmol/L (23-31); Chloride 107 mmol/L (98-107); Estimated GFR-MDRD 85; Glucose 100 mg/dL (83-110); Potassium 4.5 mmol/L (3.5-5.1); Sodium 142 mmol/L (136-145)
[2018-04-29] MEDS: Metoclopramide HCl 10 MG TAB PO SCH ×2 (08:11→20:56)
[2018-04-29] MEDS: Potassium Chloride 10 MEQ TAB PO SCH ×2 (08:11→17:13)
[2018-04-29] MEDS: Aspirin 81 mg Enteric Coated Tablet PO SCH (08:11)
--- NOTE | 2018-04-29 12:41 | PRG ---
DATE OF SERVICE: 04/29/2018 SUBJECTIVE: The patient said she is doing okay. Still has some pain in the right hip, but it did no t seem to be as severe. She is working with physical therapy, on the , walked 110 feet, yesterda y 55 feet x2 with a rolling walker and minimal assistance. Still requiring moderate assistance with any transfers. OBJECTIVE: The patient is lying in bed. She appears comfortable in no distress. Temp 97.9, pulse 1 07, respirations 18, O2 sat 94% on room air, blood pressure 131/61. Lungs were clear. Heart, regula r rate. Extremities; no edema. Lab shows an H&H of 8.7 and 27.6, WBC count 7300 with 70% segs, 19% lymphocytes, platelet count of 27 9,000. Sodium 142, potassium 4.5, BUN up to 40, creatinine 0.6, glucose 100. Her weight is down to 78 from a high of 84. ASSESSMENT: 1. Left lower lobe pneumonia. A. Hospital-acquired and possible aspiration. B. Presenting with fever and alteration in mental status. C. Continued improvement. Mental status remains at her baseline. She remains afebrile. Lungs jose ined clear. Followup chest x-ray showed resolution of the left basilar pneumonia and there are some residual right basilar infiltrate as of 04/27/2018. The patient remains afebrile. Lungs are clear a s of 04/29/2018. D. The 1 of 2 blood cultures was positive for Micrococcus which represent a skin contaminant. 2. Generalized weakness following a fall on 03/26/2018. A. Fall resulting in contusion to the right hip that has improved. B. Generalized weakness with marked increase since development of the pneumonia requiring readmissio n on 04/22/2018. C. Improved where she is walking further with a rolling walker and assistance. Still requires moder ate assistance with any transfers as of 04/29/2018. 3. Severe gastroesophageal reflux disease. A. Complicated by severe erosive esophagitis. B. Complicated by delayed gastric emptying. C. Complicated with repeated episodes of food impaction requiring EGD with disimpaction. D. Tolerating a regular diet, mechanical soft, as of 04/25/2018. E. Previous exam and biopsy showed no evidence of achalasia. F. Tolerating a mechanical soft diet with chopped meats and no breads as of 04/29/2018. 4. Coronary artery disease. A. Status post coronary artery bypass in 1993. B. Asymptomatic. 5. Hypertension. 6. Hyperlipidemia. 7. Osteoporosis. A. History of compression fracture of T8, T11, T12 and L1. 8. Mild dementia. 9. Urinary incontinence. 10. Hypokalemia. A. Improved with potassium increased from 2.7 to 3.2 as of 04/25/2018. PLAN: The patient has lost a little weight. Her BUN has risen. We will encourage the patient to dr ink more liquids. We will reassess her basic metabolic panel in 2 days.
[2018-04-29] MEDS: traMADol HCl 50 MG TAB PO PRN (20:55)
[2018-04-30] MEDS: Metoclopramide HCl 10 MG TAB PO SCH ×2 (08:19→21:39)
[2018-04-30] MEDS: Potassium Chloride 10 MEQ TAB PO SCH ×2 (08:19→17:24)
[2018-04-30] MEDS: Aspirin 81 mg Enteric Coated Tablet PO SCH (08:19)
[2018-04-30] MEDS: traMADol HCl 50 MG TAB PO PRN ×2 (14:57→22:30)
[2018-05-01 05:57] LABS: Anion Gap 13 mmol/L (10-20); Calc. Creatinine Clearance 34 mL/min (70-130); Calcium 9.1 mg/dL (7.8-10.44); Carbon Dioxide 25 mmol/L (23-31); Chloride 105 mmol/L (98-107); Estimated GFR-MDRD 83; Glucose 100 mg/dL (83-110); Potassium 4.2 mmol/L (3.5-5.1); Sodium 139 mmol/L (136-145)
[2018-05-01 06:17] LABS: BUN (Urea Nitrogen) 29 mg/dL (9.8-20.1)
[2018-05-01] MEDS ORDERED: Potassium Chloride 10 MEQ TAB PO SCH (08:00)
[2018-05-01] MEDS ORDERED: Potassium Chloride 20 MEQ TAB PO SCH (08:00)
[2018-05-01] MEDS: Metoclopramide HCl 10 MG TAB PO SCH ×2 (08:31→20:12)
[2018-05-01] MEDS: Aspirin 81 mg Enteric Coated Tablet PO SCH (08:31)
--- NOTE | 2018-05-01 12:15 | PRG ---
DATE OF SERVICE: 05/01/2018 SUBJECTIVE: The patient says she feels a little better today. She still has soreness in the right h ip area, but not as much. She has been working with physical therapy. She is walking up to 100 feet with a rolling walker and standby assistance. She is requiring moderate to minimal assistance with transferring. OBJECTIVE: The patient is sitting in a chair, looks better. She appears in no acute distress. Her vital signs show a temperature 97.6, pulse 84, respirations 14, O2 sat 94% on room air, blood pressur e 137/62. Lungs are clear. Extremities; no edema. Heart, regular rate. LABORATORY: Sodium 139, potassium 4.2, BUN 29, down from a high of 41, creatinine 0.67, GFR 83, gluc ose 100. ASSESSMENT: 1. Left lower lobe pneumonia. A. Hospital-acquired and possible aspiration. B. Presenting with fever and alteration in mental status. C. Clinically resolved. The patient remains afebrile and with clear lungs, completing oral dose of Levaquin as of 05/01/2018. D. The 1 of 2 blood cultures was positive for Micrococcus which represent a skin contaminant. 2. Generalized weakness following a fall on 03/26/2018. A. Fall resulting in contusion to the right hip that has improved. B. Generalized weakness with marked increase since development of the pneumonia requiring readmissio n on 04/22/2018. C. Improved. Walking further with a rolling walker and assistance. Transferring better as of 05/01. 3. Severe gastroesophageal reflux disease. A. Complicated by severe erosive esophagitis. B. Complicated by delayed gastric emptying. C. Complicated with repeated episodes of food impaction requiring EGD with disimpaction. D. Tolerating a regular diet, mechanical soft, as of 04/25/2018. E. Previous exam and biopsy showed no evidence of achalasia. F. Tolerating a mechanical soft diet with chopped meats and no breads as of 05/01/2018. 4. Coronary artery disease. A. Status post coronary artery bypass in 1993. B. Asymptomatic. 5. Hypertension. 6. Hyperlipidemia. 7. Osteoporosis. A. History of compression fracture of T8, T11, T12 and L1. 8. Mild dementia. 9. Urinary incontinence. 10. Hypokalemia. A. Controlled potassium up to 4.2 as of 05/01/2018. PLAN: Continue present care. We will reduce the potassium to 1 a day. Complete the 7-day course of oral Levaquin scheduled last day 05/06/2018. Continue physical therapy. The BUN has dropped with b davion hydration from the high of 41 to 29. We will continue to monitor this.
[2018-05-01] MEDS: Acetaminophen 325 MG TAB PO PRN (20:12)
[2018-05-02] MEDS: Metoclopramide HCl 10 MG TAB PO SCH ×2 (09:10→20:35)
[2018-05-02] MEDS: Aspirin 81 mg Enteric Coated Tablet PO SCH (09:10)
[2018-05-02] MEDS: Potassium Chloride 10 MEQ TAB PO SCH (09:11)
[2018-05-02] MEDS: traMADol HCl 50 MG TAB PO PRN (09:54)
[2018-05-02] MEDS: Acetaminophen 325 MG TAB PO PRN (12:07)
--- NOTE | 2018-05-02 17:40 | PRG ---
DATE OF SERVICE: 05/02/2018 SUBJECTIVE: The patient has been up this morning, has eaten lunch and now is lying down for a nap. She has not had any trouble with her breathing. Her pain seems to be better. The patient yesterday walked 75 feet for physical therapy with a rolling walker and caregiver assist. She is transferring better, still needs some assistance. OBJECTIVE: GENERAL: The patient is lying in bed on her left side. She looks very comfortable in no distress. VITAL SIGNS: Her temperature is 97.8, pulse 90, respirations 18, O2 sat 95% on room air, blood press ure 169/69. LUNGS: Clear. HEART: Regular rate. EXTREMITIES: No edema. ASSESSMENT: 1. Left lower lobe pneumonia. A. Hospital-acquired and possible aspiration. B. Presenting with fever and alteration in mental status. C. Clinically resolved. The patient remains afebrile, lungs clear as of 05/02/2018. D. The 1 of 2 blood cultures was positive for Micrococcus which represent a skin contaminant. 2. Generalized weakness following a fall on 03/26/2018. A. Fall resulting in contusion to the right hip that has improved. B. Generalized weakness with marked increase since development of the pneumonia requiring readmissio n on 04/22/2018. C. Improved. Walking up to 75 feet with a rolling walker and assistance, transferring better as of 05/02/2018. 3. Severe gastroesophageal reflux disease. A. Complicated by severe erosive esophagitis. B. Complicated by delayed gastric emptying. C. Complicated with repeated episodes of food impaction requiring EGD with disimpaction. D. Tolerating a regular diet, mechanical soft, as of 04/25/2018. E. Previous exam and biopsy showed no evidence of achalasia. F. Tolerating a mechanical soft diet with chopped meats and no breads as of 05/02/2018. 4. Coronary artery disease. A. Status post coronary artery bypass in 1993. B. Asymptomatic. 5. Hypertension. 6. Hyperlipidemia. 7. Osteoporosis. A. History of compression fracture of T8, T11, T12 and L1. 8. Mild dementia. 9. Urinary incontinence. 10. Hypokalemia. A. Controlled potassium up to 4.2 as of 05/01/2018. PLAN: Continue physical therapy. Discontinue the Levaquin. Patient's insurance gave approval for a nother 7 days as of 05/01/2018.
[2018-05-03] MEDS: Acetaminophen 325 MG TAB PO PRN ×2 (01:26→20:31)
[2018-05-03] MEDS: Potassium Chloride 10 MEQ TAB PO SCH (09:17)
[2018-05-03] MEDS: Aspirin 81 mg Enteric Coated Tablet PO SCH (09:17)
[2018-05-03] MEDS: Metoclopramide HCl 10 MG TAB PO SCH ×2 (09:18→20:28)
[2018-05-03] MEDS: traMADol HCl 50 MG TAB PO PRN (16:03)
[2018-05-04 07:13] LABS: Anion Gap 12 mmol/L (10-20); BUN (Urea Nitrogen) 19 mg/dL (9.8-20.1); Calc. Creatinine Clearance 35 mL/min (70-130); Calcium 8.8 mg/dL (7.8-10.44); Carbon Dioxide 25 mmol/L (23-31); Chloride 106 mmol/L (98-107); Estimated GFR-MDRD 86; Glucose 101 mg/dL (83-110); Potassium 4.2 mmol/L (3.5-5.1); Sodium 139 mmol/L (136-145)
[2018-05-04] MEDS: Potassium Chloride 10 MEQ TAB PO SCH (09:04)
[2018-05-04] MEDS: Metoclopramide HCl 10 MG TAB PO SCH ×2 (09:04→20:29)
[2018-05-04] MEDS: Aspirin 81 mg Enteric Coated Tablet PO SCH (09:04)
[2018-05-04] MEDS: Acetaminophen 325 MG TAB PO PRN (09:30)
[2018-05-04] MEDS: traMADol HCl 50 MG TAB PO PRN ×2 (12:30→20:28)
--- NOTE | 2018-05-04 14:53 | PRG ---
DATE OF SERVICE: 05/04/2018 SUBJECTIVE: The patient said she is feeling better. Her hip feels better. She is not having any tr ouble swallowing. She is doing better with therapy. OBJECTIVE: The patient is lying in bed, alert, appears comfortable and in no distress. Her vital si gns show a temperature 97.3, pulse 92, respirations 18, O2 sat 96% on room air, blood pressure 137/63 . Lungs are clear. Heart, regular rate. Extremities, no edema. ASSESSMENT: 1. Left lower lobe pneumonia. A. Hospital-acquired and possible aspiration. B. Presenting with fever and alteration in mental status. C. Clinically resolved. The patient remains afebrile, lungs clear as of 05/04/2018. D. The 1 of 2 blood cultures was positive for Micrococcus which represent a skin contaminant. 2. Generalized weakness following a fall on 03/26/2018. A. Fall resulting in contusion to the right hip that has improved. B. Generalized weakness with marked increase since development of the pneumonia requiring readmissio n on 04/22/2018. C. Continued improvement as of 05/04/2018. 3. Severe gastroesophageal reflux disease. A. Complicated by severe erosive esophagitis. B. Complicated by delayed gastric emptying. C. Complicated with repeated episodes of food impaction requiring EGD with disimpaction. D. Tolerating a regular diet, mechanical soft, as of 04/25/2018. E. Previous exam and biopsy showed no evidence of achalasia. F. Tolerating a mechanical soft diet with chopped meats and no breads as of 05/04/2018. 4. Coronary artery disease. A. Status post coronary artery bypass in 1993. B. Asymptomatic. 5. Hypertension. 6. Hyperlipidemia. 7. Osteoporosis. A. History of compression fracture of T8, T11, T12 and L1. 8. Mild dementia. 9. Urinary incontinence. 10. Hypokalemia. A. Controlled potassium up to 4.2 as of 05/01/2018. PLAN: The patient is doing better. The pain in the right hip is gradually diminishing and she is do ing better with therapy. Continue the mechanical soft diet. Continue physical therapy.
[2018-05-04 20:31] VITALS: BMI 16.2
[2018-05-05] MEDS: Acetaminophen 325 MG TAB PO PRN (02:30)
[2018-05-05] MEDS: Potassium Chloride 10 MEQ TAB PO SCH (08:08)
[2018-05-05] MEDS: Aspirin 81 mg Enteric Coated Tablet PO SCH (08:08)
[2018-05-05] MEDS: Metoclopramide HCl 10 MG TAB PO SCH ×2 (08:08→20:05)
[2018-05-05] MEDS: traMADol HCl 50 MG TAB PO PRN (17:10)
[2018-05-06] MEDS: Potassium Chloride 10 MEQ TAB PO SCH (08:03)
[2018-05-06] MEDS: Aspirin 81 mg Enteric Coated Tablet PO SCH (08:04)
[2018-05-06] MEDS: Metoclopramide HCl 10 MG TAB PO SCH ×2 (08:04→20:39)
[2018-05-06] MEDS: traMADol HCl 50 MG TAB PO PRN (10:26)
--- NOTE | 2018-05-06 12:36 | PRG ---
DATE OF SERVICE: 05/06/2018 SUBJECTIVE: The patient says she is feeling better. She is not complaining of her hip bothering her . She is doing a little better with therapy. OBJECTIVE: GENERAL: The patient is sitting up in a chair, looks very comfortable with her legs crossed. VITAL SIGNS: Show a temperature of 96.9, pulse 86, respirations 18, O2 sat 95% on room air, blood pressure 172/71. She has not had her morning medications. Previously, blood pressure was 105/51. LUNGS: Clear. HEART: Regular rate. EXTREMITIES: No edema. ASSESSMENT: 1. Left lower lobe pneumonia. A. Hospital-acquired and possible aspiration. B. Presenting with fever and alteration in mental status. C. Clinically resolved. The patient remains afebrile, lungs clear as of 05/06/2018. D. The 1 of 2 blood cultures was positive for Micrococcus which represent a skin contaminant. 2. Generalized weakness following a fall on 03/26/2018. A. Fall resulting in contusion to the right hip that has improved. B. Generalized weakness with marked increase since development of the pneumonia requiring readmissio n on 04/22/2018. C. Continued improvement as of 05/06/2018. 3. Severe gastroesophageal reflux disease. A. Complicated by severe erosive esophagitis. B. Complicated by delayed gastric emptying. C. Complicated with repeated episodes of food impaction requiring EGD with disimpaction. D. Tolerating a regular diet, mechanical soft, as of 04/25/2018. E. Previous exam and biopsy showed no evidence of achalasia. F. Tolerating a mechanical soft diet with chopped meats and no breads as of 05/06/2018. 4. Coronary artery disease. A. Status post coronary artery bypass in 1993. B. Asymptomatic. 5. Hypertension. 6. Hyperlipidemia. 7. Osteoporosis. A. History of compression fracture of T8, T11, T12 and L1. 8. Mild dementia. 9. Urinary incontinence. 10. Hypokalemia. A. Controlled potassium up to 4.2 as of 05/01/2018. PLAN: Continue present care. Continue physical therapy. Recheck CBC and basic metabolic tomorrow.
[2018-05-06] MEDS: Acetaminophen 325 MG TAB PO PRN (20:41)
[2018-05-07 06:42] LABS: #Basophils 0.1 thou/uL (0.0-0.2); #Eosinphils 0.1 thou/uL (0.0-0.7); #Lymphocytes 1.1 thou/uL (1.20-3.40); #Monocytes 0.7 thou/uL (0.11-0.59); #Neutrophils 7.8 thou/uL (1.40-6.50); %Eosinophils 1.1 % (0.0-10.0); %Lymphocytes 11.5 % (21.0-51.0); %Monocytes 7.4 % (0.0-10.0); %Neutrophils 78.9 % (42.0-75.0); Hemoglobin 8.6 g/dL (12.0-16.0); Mean Corpuscular HGB CONC 32.3 g/dL (32.0-36.0); Mean Corpuscular Hemoglobin 27.2 pg (27.0-31.0); Mean Corpuscular Volume 84.2 fl (81.0-99.0); Mean Platelet Volume 6.2 fL (7.4-10.4); Platelet Count 307 thou/uL (130-400); RBC Distribution Width 16.4 % (11.5-14.5); Red Blood Cell (RBC) Count 3.16 mill/uL (4.20-5.40); White Blood Cell (WBC) Count 9.9 thou/uL (4.8-10.8)
[2018-05-07 06:45] LABS: Anion Gap 15 mmol/L (10-20); BUN (Urea Nitrogen) 18 mg/dL (9.8-20.1); Calc. Creatinine Clearance 38 mL/min (70-130); Calcium 8.8 mg/dL (7.8-10.44); Carbon Dioxide 23 mmol/L (23-31); Chloride 106 mmol/L (98-107); Estimated GFR-MDRD Greater than 90; Glucose 99 mg/dL (83-110); Sodium 140 mmol/L (136-145)
[2018-05-07] MEDS: Potassium Chloride 10 MEQ TAB PO SCH (08:37)
[2018-05-07] MEDS: Aspirin 81 mg Enteric Coated Tablet PO SCH (08:38)
[2018-05-07] MEDS: Metoclopramide HCl 10 MG TAB PO SCH ×2 (08:38→21:15)
[2018-05-08 07:43] VITALS: BP 150/66; TEMP 98.5
[2018-05-08] MEDS: Metoclopramide HCl 10 MG TAB PO SCH (08:17)
[2018-05-08] MEDS: Potassium Chloride 10 MEQ TAB PO SCH (08:17)
[2018-05-08] MEDS: Aspirin 81 mg Enteric Coated Tablet PO SCH (08:17)
[2018-05-08] MEDS: Acetaminophen 325 MG TAB PO PRN (08:18)
--- NOTE | 2018-05-08 10:23 | DIS ---
ADMITTED TO ACUTE CARE: 04/23/2018 TRANSFERRED TO EXTENDED CARE: 04/25/2018 DATE OF DISCHARGE: 05/08/2018 FINAL DIAGNOSES: 1. Left lower lobe pneumonia. A. Hospital-acquired and possible aspiration. B. Presenting with fever and alteration in mental status. C. Clinically resolved. The patient remains afebrile, lungs clear as of 05/06/2018. D. The 1 of 2 blood cultures was positive for Micrococcus which represent a skin contaminant. 2. Generalized weakness following a fall on 03/26/2018. A. Fall resulting in contusion to the right hip that has improved. B. Generalized weakness with marked increase since development of the pneumonia requiring readmissio n on 04/22/2018. C. Continued improvement as of 05/06/2018. 3. Severe gastroesophageal reflux disease. A. Complicated by severe erosive esophagitis. B. Complicated by delayed gastric emptying. C. Complicated with repeated episodes of food impaction requiring EGD with disimpaction. D. Tolerating a regular diet, mechanical soft, as of 04/25/2018. E. Previous exam and biopsy showed no evidence of achalasia. F. Tolerating a mechanical soft diet with chopped meats and no breads as of 05/06/2018. 4. Coronary artery disease. A. Status post coronary artery bypass in 1993. B. Asymptomatic. 5. Hypertension. 6. Hyperlipidemia. 7. Osteoporosis. A. History of compression fracture of T8, T11, T12 and L1. 8. Mild dementia. 9. Urinary incontinence. 10. Hypokalemia. A. Controlled potassium up to 4.2 as of 05/01/2018. SUMMARY: The patient is an 87-year-old white female who has a history of hypertension, osteoporosis with multiple thoracolumbar compression fractures, right hip fracture with open reduction internal fi xation, coronary artery disease for which she has undergone coronary artery bypass. She also has sev ere gastroesophageal reflux and delayed gastric emptying that has resulted in multiple occasions of i mpaction of her esophagus that required disimpaction in the EGD. Historically, she does not have ach alasia. This is managed with mechanical soft diet, eating upright and on Reglan for the delayed ingrid eliot emptying. The patient had a fall at home on 03/27/2018 with a contusion to the right hip, no lupis dence of fracture and noted to have impaction of the esophagus. She was transferred to [facility] where she underwent EGD and disimpaction. She was then transferred back to [place] on 04/22/2018 due to the severe weakness. She showed gradual improvement, but strength was such, she st ill was unable to manage herself at home and the family could not provide at that point, the added as sistance needed. Consequently, she was discharged to [facility] on 04/22/2018. Late on the afternoon, patient was found to be minimally responsive with O2 saturation of 89% on room air and a temperature of 101.5. She was transferred back to the emergency room and found to have a left low er lobe infiltrate from pneumonia, probable aspiration. She was started on careful hydration. Cultu res were obtained of the blood and started on IV antibiotics with Levaquin, Maxipime and Cleocin. HOSPITAL COURSE: The patient showed marked improvement and was back to her usual mental status by th e morning after admission, she showed steady improvement. Her urine culture grew an Enterococcus wit h insignificant colony count and strep viridans from contamination. Her blood cultures grew micrococ cus luteus on one of the two cultures that was felt to be skin contamination. The patient showed con tinued improvement. The Cleocin was able to be stopped. Her lungs cleared. She was transferred to [facility] care on 04/25/2018 due to the severe generalized weakness. She completed the 7-day course o f the IV antibiotics of Levaquin and Maxipime. She was then placed on oral antibiotics for a few mor e days and then this was discontinued. Her lungs remained clear and the left lower lobe pneumonia hernandez d resolved. She did not have any problem with any regurgitation. She was continued on a mechanical soft diet, meals were given when she was up in a chair, sitting upright and she was continued on the Reglan. The patient did work with physical therapy and made progress during her stay in [facility]. By the time of her discharge on 05/08/2018, she was able to walk up to 100 feet with a rolling wa lker and just standby assistance. She required some standby assistance with transfers. Overall, she was markedly improved. Her condition was such, it is felt by the family that they could manage her at home. They have a lady Corry Schmitt that will be moving in with, she and her will assist both of them with their activities of daily living and home health with her guardian who will also l ook in them and provide in-home physical therapy and occupational therapy. DISPOSITION: DIET: Mechanical soft diet with meats chopped and no breads. The patient needs to eat all her meals sitting upright and she has been most of the time sitting upright in the day. ACTIVITIES: Ambulate with the use of a walker. Home Health will see patient and provide in- home ph ysical therapy and occupational therapy. MEDICATIONS: Acetaminophen 325 mg 2 every 4 hours as needed for pain, Maalox 30 mL every 4 hours as needed, Artificial Tears 1 drop in the eyes every 4 hours as needed, aspirin 81 mg daily, Metoclopram arthur 5 mg b.i.d., metoprolol succinate ER 25 mg daily, nitroglycerin 0.4 mg sublingual p.r.n. chest pa in, Klor-Con 10 mEq 1 daily, tramadol 50 mg 1 every 8 hours as needed. FOLLOW UP: Home health with Guardian will see her and arrange in-home PT and OT. We will see the flaquita quintanilla follow up in my office in 2 weeks with a CBC and basic metabolic panel. CODE STATUS: FULL CODE.
== END 2018-05-08 13:20 | disposition home health service (06) | DRG 947 ==
LOC: MADMS 11:45
PROVIDERS: ADMIT Family Medicine; ATTEND Family Medicine
DX: R53.1 Weakness (principal); J69.0 Pneumonitis due to inhalation of food and vomit; I10 Essential (primary) hypertension; M81.0 Age-related osteoporosis without current pathological fracture; I25.10 Atherosclerotic heart disease of native coronary artery without angina pectoris; Z95.1 Presence of aortocoronary bypass graft; K30 Functional dyspepsia; E78.5 Hyperlipidemia, unspecified; F03.90 Unspecified dementia, unspecified severity, without behavioral disturbance, psychotic disturbance, mood disturbance, and anxiety; S70.01XD Contusion of right hip, subsequent encounter; K21.0 Gastro-esophageal reflux disease with esophagitis; R32 Unspecified urinary incontinence; E87.6 Hypokalemia
CPT/HCPCS: 36415; 71045; 80048; 85025; 90471; 90670; A4216; G0009; G8987-GO-CK; G8988-GO-CI; J0692; J1956; J7050; Q0162

== ENCOUNTER 2018-07-31 21:52 | Emergency (ER) | payer MEDICARE ==
[~2018-07-31 21:52] MED LIST changes: -Sodium Chloride 0.9% 1,000 ML BAG ONE; +Sodium Chloride 0.9% 100 ML BAG ONE
[2018-07-31] MEDS ORDERED: cefTRIAXone\\ROCEPHIN 1 GM VIAL ONE (22:50)
--- NOTE | 2018-07-31 23:03 | RAD ---
RADIOGRAPH CHEST 1 VIEW: Date: 07/31/18 Time: 10:02 p.m. HISTORY: 88-year-old female with cough. COMPARISON: 04/26/18 FINDINGS: There is a new finding of widening of the right mediastinum. The previously demonstrated faint residu al infiltrate at the right lung base, has resolved. There is currently no consolidation or pulmonary edema. No pneumothorax. Again noted are the signs of previous CABG. IMPRESSION: 1. New right mediastinal mass, suspicious for malignant mediastinal lymphadenopathy. Recommend f urther evaluation with CT of the chest (preferably with IV contrast, unless contraindicated). 2. No evidence of pneumonia. 3. Status post coronary artery bypass graft surgery is evidence for coronary atherosclerotic dis ease. Code T JN [] POS: KARSTEN
[2018-07-31 23:16] LABS: Anion Gap 14 mmol/L (10-20); BUN (Urea Nitrogen) 26 mg/dL (9.8-20.1); Calc. Creatinine Clearance 0 mL/min (70-130); Calcium 9.3 mg/dL (7.8-10.44); Carbon Dioxide 24 mmol/L (23-31); Chloride 106 mmol/L (98-107); Estimated GFR-MDRD 79; Glucose 100 mg/dL (83-110); Potassium 4.2 mmol/L (3.5-5.1); Sodium 140 mmol/L (136-145)
[2018-07-31 23:18] LABS: #Basophils 0.1 thou/uL (0.0-0.2); #Eosinphils 0.1 thou/uL (0.0-0.7); #Lymphocytes 1.7 thou/uL (1.20-3.40); #Monocytes 0.6 thou/uL (0.11-0.59); #Neutrophils 6.8 thou/uL (1.40-6.50); %Basophils 1.2 % (0.0-1.0); %Eosinophils 0.7 % (0.0-10.0); %Lymphocytes 18.4 % (21.0-51.0); %Monocytes 6.6 % (0.0-10.0); %Neutrophils 73.2 % (42.0-75.0); Anisocytosis SLIGHT = 6-15 cells (100X) (0-5/hpf); Hemoglobin 11.2 g/dL (12.0-16.0); MDiff Complete? YES; Macrocytosis SLIGHT = 6-15 cells (100X) (0-5/hpf); Mean Corpuscular HGB CONC 31.1 g/dL (32.0-36.0); Mean Corpuscular Hemoglobin 24.6 pg (27.0-31.0); Mean Corpuscular Volume 79.2 fL (78.0-98.0); Mean Platelet Volume 7.4 fL (7.4-10.4); PLT Morphology Comment Appears Adequate; Platelet Count 184 thou/uL (130-400); Poikilocytosis SLIGHT = 6-15 cells (100X) (0-5/hpf); RBC Distribution Width 26.1 % (11.5-14.5); Red Blood Cell (RBC) Count 4.56 mill/uL (4.20-5.40); White Blood Cell (WBC) Count 9.3 thou/uL (4.8-10.8)
--- NOTE | 2018-08-01 07:34 | CT ---
CT THORAX NONCONTRAST: Date: 07/31/18 Time: 2348 hours HISTORY: 88-year-old female with cough and abnormal chest radiograph. FINDINGS: Almost the entire esophagus, from the pharyngoesophageal junction, to the lower esophagus, is very di stended with a large amount of material consisting of gas intermixed with fluid and solid components. This displaces the trachea, hitesh, and bilateral mainstem bronchi anteriorly, and narrows their lum en at least mildly. This severely distended esophagus is responsible for the mediastinal widening dem onstrated on the recent chest radiograph. There is no mediastinal lymphadenopathy. No pleural effusio n, pericardial effusion, pneumothorax, or air space opacity. There is plate-like density at the base of the right lower lobe, either representing subsegmental atelectasis or scar. Otherwise, the lungs a re clear. There is a vertebra plana configuration of T8, which was demonstrated on the 03/26/18 CT of the thora cic spine. There are old burst fractures of T12 and L1, also demonstrated on the previous CT. There a re compression fractures involving the inferior end plates of T3 and T2, with bony retropulsion. Thes e were demonstrated on previous cervical spine CT of 03/26/18. IMPRESSION: 1. Severe distention of almost the entire esophagus, filled with a large bezoar. The cause could be stricture of the distal esophagus due to malignant primary neoplasm, or scar due to chronic gastroeso phageal reflux; or alternatively, achalasia. Recommend gastroenterology consultation. 2. Multiple old burst fractures of the thoracic spine and lumbar spine. ROSA Berrios POS: KARSTEN
== END 2018-08-01 00:58 | disposition short-term general hospital (02) ==
LOC: MADERS 21:52
DX: T18.198A Other foreign object in esophagus causing other injury, initial encounter (principal); K63.89 Other specified diseases of intestine; J39.8 Other specified diseases of upper respiratory tract; I25.10 Atherosclerotic heart disease of native coronary artery without angina pectoris; I10 Essential (primary) hypertension; E78.5 Hyperlipidemia, unspecified; M81.0 Age-related osteoporosis without current pathological fracture; K21.9 Gastro-esophageal reflux disease without esophagitis; Z79.82 Long term (current) use of aspirin; Z79.899 Other long term (current) drug therapy; Z79.891 Long term (current) use of opiate analgesic
CPT/HCPCS: 36415; 71045; 71250; 80048; 83880; 85025; 96365; 96366; 96367; J0696; J1956